=== PATIENT | female | born 2000 | race Caucasian/White ===

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

== ENCOUNTER 2024-07-19 06:02 | Emergency (ER) | payer MEDICAID, SELFPAY ==
[2024-07-19 06:03] VITALS: BP 109/74; PULSE 115; RESP 18; TEMP 37.2; O2SAT 97; BMI 19.5
[2024-07-19 06:14] VITALS: PULSE 102; O2SAT 96
[2024-07-19 06:15] VITALS: PULSE 103; O2SAT 98
[2024-07-19] MEDS: KETOROLAC 30MG/ML VIAL 30 MG IV (06:21)
[2024-07-19] MEDS: PROCHLORPERAZINE 10MG/2ML VIAL 10 MG IV (06:21)
[2024-07-19] MEDS: LACTATED RINGERS 1000ML 1,000 ML 999 ML IV (06:21)
[2024-07-19] MEDS: MAGNESIUM SULFATE IN WATER 2 GM/50 ML PIGGYBACK IV (06:21)
--- NOTE | 2024-07-19 06:23 | HMH.EDGENADL ---
Discharge Plan Disposition Patient Disposition: Home, Self-Care Referrals Follow up/Referrals: Provider,Referral, MD [Primary Care Provider] - See instructions Activity Restrictions/Add. Instructions Additional Instructions/Restrictions: Please follow-up with your primary care provider. Please return to the emergency department if you develop any new or worsening symptoms or become concerned for your health. Clinical Impressions Clinical Impression: Migraine, Influenza A Print Language Print Language: Japanese Discharge ED Provider: Femi Duncan General Adult HPI General Chief complaint: Headache Stated complaint: headache Time Seen by Provider: 07/19/24 06:05 Mode of Arrival: Ambulatory Source of Information: Patient Limitations: No Limitations Description of Symptoms (Recalled from ER Triage Doc. by RN): Patient has had a migraine since 1 am- she woke up with it. States light worsens it, and a cold rag on the head helps it. States she has a history of migraines. 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 History of Present Illness HPI narrative: 23-year-old female with history of migraines presents with migraine. She reports it is left-sided in nature. She used to get migraines as a child but has not gotten them in several years. She took Tylenol without improvement. She also reports some recent flulike symptoms. Patient denies and does not want to wait for test to administer medications. Related Data Allergies Allergy/AdvReac Type Severity Reaction Status Date / Time Penicillins Allergy Mild Rash Verified 07/19/24 06:12 [facility] Disclaimer: The information contained in this section may have been updated after the patient was seen, as this information can be updated by other users. Social History Smoking Status: Current every day smoker alcohol intake: never current occupational status: other Travel in the last 8 weeks: None ROS Obtained: Yes All systems reviewed & no additional complaints except as documented Physical Exam General General appearance: alert and in no apparent distress Head Head exam: atraumatic and normocephalic Eye Eye exam: Present normal appearance, PERRL and EOMI ENT ENT exam: Present normal oropharynx and normal external ear exam Neck Neck exam: Present normal inspection and full ROM Chest Chest inspection: Present normal inspection and symmetric chest wall rise; Absent tenderness Respiratory Respiratory exam: Present normal lung sounds bilaterally; Absent respiratory distress Cardiovascular Cardiovascular exam: Present regular rate and normal rhythm Abdominal Exam Abdominal exam: Present soft; Absent distention, tenderness or guarding Extremities Exam Extremities exam: Present normal inspection; Absent edema or joint swelling Back Exam Back exam: Present normal inspection; Absent tenderness Neurological Exam Neurological exam: Present alert and oriented X3; Absent motor sensory deficit Psychiatric Psychiatric exam: Present normal affect and normal mood Skin Skin exam: Present warm, dry and normal color Lymphatic Lymphatic Findings: no adenopathy Medical Decision Making Medical Records Medical records reviewed: Yes I reviewed the patient's medical records. Screening: Per USPSTF and CDC recommendations, given the prevalence of disease in our region, it is our hospital?s policy to screen for HIV and viral Hepatitis for all patients aged 18 and over and those with ongoing risk factors. Stefan Inquiry Pt receiving controlled substance: No Stefan was queried for this patient: No Vital Signs: 07/19/24 06:03 07/19/24 06:14 07/19/24 06:15 Temperature 98.9 F Temperature Source Temporal Artery Scan Pulse Rate 102 H 103 H Pulse Rate [Right Radial] 115 H Respiratory Rate 18 Blood Pressure [Right Arm] 109/74 L Blood Pressure Mean [Right Arm] 85 Blood Pressure Source [Right Arm] Automatic Cuff Blood Pressure Position [Right Arm] Supine 02 Sat by Pulse Oximetry 97 96 98 Oxygen Delivery Method Room Air Lab Data Lab results reviewed: Yes I reviewed the patient's lab results. Lab Results 07/19/24 06:22: SARS-CoV-2 (PCR) Not detected, Influenza A Untype (PCR) Detected A, Influenza Type B (PCR) Not detected Orders (Tests/Meds): ED MEDICATIONS Discontinued Medications Generic Name Dose Route Start Last Admin Trade Name Freq PRN Reason Stop Dose Admin Diphenhydramine HCl 25 mg 07/19/24 06:37 07/19/24 06:41 Diphenhydramine 50mg/Ml Vial IV 07/19/24 06:38 25 mg ONCE ONE Administration Magnesium Sulfate 2 gm in 50 mls @ 150 mls/hr 07/19/24 06:10 07/19/24 06:21 Magnesium Sulfate 2gm/50ml Premix IV 07/19/24 06:29 150 mls/hr ONCE ONE Administration Lactated Ringer's 1,000 mls @ 999 mls/hr 07/19/24 06:15 07/19/24 06:21 Lactated Ringer's 1000 Ml Bag IV 07/19/24 07:15 999 mls/hr .Q1H1M VIVEK Administration Ketorolac Tromethamine 30 mg 07/19/24 06:10 07/19/24 06:21 Ketorolac 30mg/Ml Vial IV 07/19/24 06:11 30 mg ONCE ONE Administration Prochlorperazine Edisylate 10 mg 07/19/24 06:10 07/19/24 06:21 Prochlorperazine 10mg/2ml Vial IV 07/19/24 06:11 10 mg ONCE ONE Administration ORDERS Category Date Time Status Rapid PCR Covid and Flu A/B Stat Lab 07/19/24 06:22 Completed Medical Decision Narrative: 23-year-old female with history of migraines presents with left-sided migraine.. History was obtained via interactive discussion with patient. On arrival, patient is [afebrile, hemodynamically stable, satting appropriately, alert, oriented x4, GCS 15], moving all extremities spontaneously. Full physical exam performed and significant for no significant physical exam abnormalities Differential includes but is not limited to migraine headache, tension headache, influenza. Patient was given migraine cocktail with Toradol Compazine magnesium and IV fluid for symptomatic management and correction of underlying abnormalities. Workup initiated including COVID flu swab. Patient was placed in ED observation status to assess the efficacy of IV medications and determine need for further workup or admission. On reassessment patient reports marked symptomatic improvement. She did have a reaction to the Compazine but it improved after Benadryl. Patient is flu positive. She is discharged in stable condition with return precautions. Procedures Risk/Benefits of Procedure(s) Were Explained: Yes Critical Care Critical Care Time Critical Care Time: No
[2024-07-19 06:31] LABS: Coronavirus 19, PCR Not Detected (NotDetected); Influenza B, PCR Not Detected (NotDetected)
[2024-07-19] MEDS: diphenhydrAMINE 50MG/ML VIAL 25 MG IV (06:41)
[2024-07-19 07:01] LABS: Influenza A, PCR Detected (NotDetected)
[2024-07-19 07:22] VITALS: BP 100/63; PULSE 82; RESP 15; TEMP 37.1; O2SAT 99
== END 2024-07-19 07:25 | disposition home or self-care (01) ==
PROVIDERS: Emergency Provider Emergency Medicine
DX: G43.909 Migraine, unspecified, not intractable, without status migrainosus (principal); J10.1 Influenza due to other identified influenza virus with other respiratory manifestations; H53.149 Visual discomfort, unspecified
CPT/HCPCS: 87636; 96361; 96365; 96374; 96375; 99284; J0780; J1200; J1885; J3475; J7120

== ENCOUNTER 2024-12-11 12:06 | Emergency (ER) | payer SELFPAY ==
[2024-12-11 12:13] VITALS: BP 108/73; PULSE 82; RESP 16; TEMP 36.8; O2SAT 98; BMI 19.5
--- OUTSIDE RECORDS SUMMARY | 2024-12-11 12:14 | XMS_ITS | Encounter Summary ---
Author Organization [facility] [employer] ([place], [place], [place], [place]) Address [address] [place] [address] Care Team Providers Care Treating Inspector Name Role Phone Maycol Suzan BARBOZA Primary Care Provider Encounter Details Date Type Department Care Team (Late st Contact Info) Description 05/06/2021 Transcribed Document [facility] [place] [facility] [place] [address] [place] [address] ProviderIsaías MD [address] [place] [address] Social History Tobacco Use Types Packs/Day Years Used Date Smoking Tobacco: Never Assessed Comments Unknown Sex and Gender Information Value Date Recorded Sex Assigned at Female 11/21/2021 6:51 PM CDT Legal Sex Female 6:51 PM CDT Gender Identity Female 11/21/2021 6:51 PM CDT Sexual Orientation Not on file documented as of this encounter Miscellaneous Notes * Cerner Conversion Note - Isaías ProviderMD - 05/06/2021 4:42 PM OPERATOR AUTOMATED PROCESS ED Triage Entered On: 05/06/2021 17:50 EST Performed On: 05/06/2021 17:47 EST by Esha Burns, CARE PARTNER Triage Across the Room Chief Complaint : Abdominal pain since yesterday. States is 8 wks gestation, primigravida. Went to [facility] yesterday and told to come to this ED if pain returned. Denies vaginal bleeding or vomiting. Taking abx for UTI per OB x4 days. Esha Burns RN - 05/06/2021 17:51 EST Triage Date/Time : 05/06/2021 17:47 EST Esha Burns RN - 05/06/2021 17:47 EST DCP GENERIC CODE Tracking Group : [facility] Tracking Acuity : 3 - Urgent Esha Burns RN - 05/06/2021 17:47 EST Mode of Arrival : Ambulatory Transported to ED by : Walk in To Room Via : Ambulate Accompanied By : Mother ED Vital Signs : Document Height & Weight : Document ED Allergies : Document ED Reason for Visit : Document ED Triage Treatments : Document Esha Burns RN - 05/06/2021 17:47 EST Infectious Disease History Does patient have symptoms of COVID-19? : No Has the Patient Been Tested for COVID-19 in the last 14 days? : No, Patient stated Does the Patient state known exposure to a COVID-19 positive case in the last 14 days? : No Patient Vaccinated for COVID-19 : Not vaccinated Does Patient want a COVID-19 Vaccine? : Unable to obtain or unsure Esha Burns RN - 05/06/2021 17:47 EST Infectious Disease Risk Screening Grid Cough < 2 wks of unknown origin : NO Cough > 2 weeks : NO Blood in Sputum : NO Fever or self-reported Fever : NO Rash of unknown origin : NO Headache : NO Stiff neck : NO Night Sweats : NO Unexplained Weight Loss : NO Diarrhea (3 episode per day) : NO Esha Burns RN - 05/06/2021 17:47 EST Physical contact outside [place] in the last 30 days : No Hospitalized in Foreign Country : No Infectious Disease History : None INF Disease TB Screening Calc : 0 INF Disease Recent Travel Calc : 0 Esha Burns RN - 05/06/2021 17:47 EST Vital Signs ED Temperature Source : Temporal artery scanning Temperature Mode : Fahrenheit Temperature, Fahrenheit : 97.2 Deg F Clinical Temperature, C : 36.2 Deg C Oxygen Therapy Mode : Room air Peripheral Pulse Rate : 81 bpm Respiratory Rate : 20 Breaths/Min Systolic Blood Pressure : 107 mmHg Diastolic Blood Pressure : 54 mmHg (LOW) Oxygen Saturation : 100 % Esha Burns RN - 05/06/2021 17:47 EST Allergy (As Of: 05/06/2021 17:50:27 EST) Allergies (Active) penicillin Estimated Onset Date: Unspecified ; Created By: Tamera Birmingham RN; Reaction Status: Active ; Category: Drug ; Substance: penicillin ; Type: Allergy ; Updated By: Tamera Birmingham RN; Reviewed Date: 05/06/2021 17:49 EST Diagnosis Control ED (As Of: 05/06/2021 17:50:27 EST) Problems(Active) No Chronic Problems (Cerner :NKP ) Name of Problem: No Chronic Problems ; Recorder: Esha Burns RN; Code: NKP ; Last Updated: 05/06/2021 17:50 EST ; Life Cycle Date: 05/06/2021 ; Life Cycle Status: Active ; Vocabulary: Cerner Diagnoses(Active) Abdominal pain - Date: 05/06/2021 ; Diagnosis Type: Reason For Visit ; Confirmation: Complaint of ; Clinical Dx: Abdominal pain - ; Classification: Medical ; Clinical Service: Emergency medicine ; Code: PNED ; Probability: 0 ; Diagnosis Code: [id number] ED Height and Weight Height Source : Stated Height Entry Format : Gilbert Height, Feet : 5 ft(Converted to: 152 cm, 60 Inch) Height, Inches : 3 Inch(Converted to: 0 ft 3 Inch, 7.62 cm) Clinical Height : 160.02 cm Weight Source, ED : Standing scale Weight Entry Format : Gilbert Weight, Pounds : 102 lb Clinical Dosing Weight : 46.36 kg Body Surface Area (BSA) : 1.45 m2 Body Mass Index : 18.1 kg/m2 (LOW) Raymond Body Weight (IBW) : 52.02 kg Esha Burns RN - 05/06/2021 17:47 EST Triage Initial Exam and Interventions, ED Level of Consciousness : Alert, Awake Affect/Behavior : Calm, Cooperative Orientation : Oriented x 4 Skin Temperature : Warm Skin Description : Normal for ethnicity Esha Burns RN - 05/06/2021 17:47 EST documented in this encounter Plan of Treatment Not on file documented as of this encounter Visit Diagnoses Not on filedocumented in this encounter Care Teams Treating Inspector Relationship Specialty Start Date End Date Maycol, JABARI Mares PCP - General Obstetrics 05/25/23 documented as of this encounter
--- OUTSIDE RECORDS SUMMARY | 2024-12-11 12:14 | XMS_ITS | Encounter Summary ---
Author Organization [employer] ([place], [place], [place], [place]) Address [address] [place] [address] Care Team Providers Care Middleware Solutions Architect Name Role Phone Suzan Severino CNM Primary Care Provider Encounter Details Date Type Department Care Team (Late st Contact Info) Description 05/06/2021 Transcribed Document [facility] [address] [place] [address] John Berumen MD [address] [place] [address] Dept[place] [address] Social History Tobacco Use Types Packs/Day Years Used Date Smoking Tobacco: Never Assessed Comments Unknown Sex and Gender Information Value Date Recorded Sex Assigned at Female 11/21/2021 6:51 PM CDT Legal Sex Female 6:51 PM CDT Gender Identity Female 11/21/2021 6:51 PM CDT Sexual Orientation Not on file documented as of this encounter Miscellaneous Notes * Cerner Conversion Note - John Berumen MD - 05/06/2021 10:47 PM EST Electronically signed by [facility] Conversion Projector Operator Cerner at 09/11/2022 12:34 PM CDT documented in this encounter Plan of Treatment Not on file documented as of this encounter Visit Diagnoses Not on filedocumented in this encounter Care Teams Middleware Solutions Architect Relationship Specialty Start Date End Date Suzan Severino CNM PCP - General Obstetrics 05/25/23 documented as of this encounter
--- OUTSIDE RECORDS SUMMARY | 2024-12-11 12:14 | XMS_ITS | Encounter Summary ---
Author Organization [employer] ([place], [place], [place], [place]) Address [address] [place] [address] Care Team Providers Care Stone Product Fabricator Name Role Phone Suzan Severino CNM Primary Care Provider [phone] Encounter Details Date Type Department Care Team (Late st Contact Info) Description 08/24/2021 Transcribed Document [facility] [place] [facility] [address] [place] [address] ProviderIsaías MD [address] [place] [address] Social History Tobacco Use Types Packs/Day Years Used Date Smoking Tobacco: Never Assessed PRAPARE - Transportation Answer Date Re corded In the past 12 months, has l ack of transportation kept you from medical appointments or from getting medications? No 06/26/2023 Lack of Transportation (Non-Medical) Not on file 06/26/2023 Utilities Answer Date Recorded In the past 12 months, has t he electric, gas, oil, or water company threatened to shut off services in your home? No 07/24/2023 Food Insecurity Answer Date Recorded Within the past 12 months, y ou worried that your food would run out before you got money to buy more. Never true 07/24/2023 Within the past 12 months, t he food you bought just didn't last and you didn't have money to get more. Never true 07/24/2023 Transportation Needs Answer Date Record ed In the past 12 months, has l ack of reliable transportation kept you from medical appointments, meetings, work or from getting things needed for daily living? No 07/24/2023 Financial Resource Strain Answer Date R ecorded How hard is it for you to pa y for the very basics like food, housing, medical care, and heating? Would you say it is: Not hard at all 07/24/2023 Employment Answer Date Recorded Do you want help finding or keeping work or a job? I do not need or want help 07/24/2023 Family and Community Support Answer Juan e Recorded If for any reason you need h elp with day-to-day activities such as bathing, preparing meals, shopping, managing finances, etc., do you get the help you need? I don't need any help 07/24/2023 Feeling Lonely or Isolated 0 07/24 Educational Attainment Answer Date Orlando rded Do you speak a language other than [place] at [facility]? No 07/24/2023 Do you want help with school or training? For example, starting or completing job training or getting a high school diploma, GED or equivalent. No 07/24/2023 Physical Activity Answer Date Recorded Number of minutes of exercise per week 250 07/24/2023 Substance Use Answer Date Recorded How many times in the past y ear have you used prescription drugs for non-medical reasons? Never 07/24/2023 How many times in the past year have you used [place] legal drugs? Never 07/24/2023 Comments Unknown Sex and Gender Information Value Date Recorded Sex Assigned at Female 11/21/2021 6:51 PM CDT Legal Sex Female 6:51 PM CDT Gender Identity Female 11/21/2021 6:51 PM CDT Sexual Orientation Not on file documented as of this encounter Miscellaneous Notes * Cerner Conversion Note - Historical Provider, - 08/24/2021 1:12 PM CDT Stroke/Warfarin Instructions Entered On: 08/24/2021 13:12 EDT Performed On: 08/24/2021 13:12 EDT by JEFERSON GOLDSMITH, RN Stroke/Warfarin Instructions Stroke/TIA Discharge Ins : N/A Warfarin Discharge Ins : N/A JEFERSON GOLDSMITH RN - 08/24/2021 13:12 EDT Electronically signed by [facility] Conversion Filtrose Crusher Kristenner at 09/11/2022 12:23 PM CDT documented in this encounter Plan of Treatment Not on file documented as of this encounter Visit Diagnoses Not on filedocumented in this encounter Care Teams Stone Product Fabricator Relationship Specialty Start Date End Date Severino, JABARI Mares PCP - General Obstetrics 05/25/23 documented as of this encounter
--- OUTSIDE RECORDS SUMMARY | 2024-12-11 12:14 | XMS_ITS | Encounter Summary ---
Author Organization [employer] ([place], [place], [place], [place]) Address [address] [place] [address] Care Team Providers Care City Surveyor Name Role Phone Suzan Severino CNM Primary Care Provider [phone]- [phone] Encounter Details Date Type Department Care Team (Late st Contact Info) Description 12/17/2021 Transcribed Document [facility] [place] [address] [place] [address] ProviderIsaías MD [address] [place] [address] Social History Tobacco Use Types [...] Do you speak a language other than [place] at [facility]? No 07/24/2023 Do you want help with [...] Cerner Conversion Note - Historical Provider, - 12/17/2021 3:25 PM CDT Patient: KANDACE GONZALEZ Age: 21 Years Sex: Female : 2000 Admit Date 12/17/2021 13:43 PREOPERATIVE DIAGNOSIS(ES): 21 yo G1 at 40 0/7, bradycardia POSTOPERATIVE DIAGNOSIS(ES): Same PROCEDURE: Stat Section SURGEON: Dr. Rina Yu Assist: Dr. Wilfredo Da Silva ANESTHESIA: General COMPLICATIONS: None apparent. ESTIMATED BLOOD LOSS: 500cc INTRAVENOUS FLUIDS: 1500 mL crystalloid. URINE OUTPUT: 50 cc, clears at the completion of the procedure. SPECIMENS: None INDICATIONS: bradycardia Findings: Female at 1431 with apgars of 9, 9 and weight of 3149g; unremarkable anatomy and placenta DESCRIPTION OF PROCEDURE: The patient was taken to the operating room. She was prepped and draped in the dorsal supine position. After initiating general anesthesia, Pfannenstiel skin incision was made and carried down to the underlying layer of the fascia, which was incised midline. Fascial incisions were extended superiorly and laterally. Rectus muscles were divided bluntly. Peritoneum was identified and entered. Peritoneal incisions were extended with good bladder visualization. The lower uterine segment was incised in a transverse fashion and hysterotomy was extended superiorly and laterally. The was delivered cephalic presentation atraumatically. Upon delivery, cord was clamped twice and cut. Infant was bulb suctioned and handed to the awaiting NICU/ team. Cord blood and gas were obtained and sent to the lab for analysis. The placenta was delivered and noted to be intact with a three-vessel cord and was disposed off. Hysterotomy was closed in the usual running, locked fashion with #1-0 chromic. Excellent hemostasis was then noted post closure. Pelvis was copiously irrigated. Surgicel was added for additional hemostatic purpose. Peritoneum was reapproximated with #2-0 chromic. Fascia was closed with #0 Vicryl. Subcu was closed with #3-0 Vicryl. Skin was closed with #3-0 Monocryl. Steri-Strips and dressing were applied post procedure. The patient did go to recovery in stable condition. The went to the nursery in stable condition. Antibiotics were given on-call to the operating room suite. X-ray negative post op. documented in this encounter Plan of Treatment Not on file documented as of this encounter Visit Diagnoses Not on filedocumented in this encounter Care Teams City Surveyor Relationship Specialty Start Date End Date Maycol JABARI Mares PCP - General Obstetrics 05/25/23 documented as of this encounter
--- OUTSIDE RECORDS SUMMARY | 2024-12-11 12:14 | XMS_ITS | Clinical Summary ---
Author Organization [facility] Address [address] [place] [address] Phone Care Team Providers Care Seamless Tube Roller Name Role Phone Unavailable Primary Care Provider Unavailabl e Allergies Active Allergy Reactions Criticality Noted Date Comments Penicillin Hives 01/28/2023 Medications No known medications Social History Tobacco Use Types Packs/Day Years Used Date Smoking Tobacco: Never Smokeless Tobacco: Never Tobacco Cessation:Counseling Given: Not Answered Comments Unknown Sex and Gender Information Value Date Recorded Sex Assigned at Not on file Legal Sex Female 5:57 PM EDT Gender Identity Not on file Sexual Orientation Not on file Obstetrics History Last Filed Vital Signs Vital Sign Reading Time Taken Comments Blood Pressure 108/72 01/28/2023 6:00 PM EDT Pulse 104 01/28/2023 5:58 PM EDT Temperature 37.1 C (98.7 F) 01/28/2023 6:00 PM EDT Respiratory Rate 18 01/28/2023 5:58 PM EDT Oxygen Saturation 97% 01/28/2023 5:58 PM EDT Inhaled Oxygen Concentration - - Weight 48.7 kg (107 lb 4.8 oz) 01/28/2023 6:00 P M EDT Height - - Body Mass Index - - Plan of Treatment Health Maintenance Due Date Last Done Comments Annual Wellness Exam 2005 HPV (1 - 3-dose series) 2017 Meningococcal B Vaccine (1 o f 2 - Standard) 2018 DTaP/TDaP/Td (1 - Tdap) 2021 Hepatitis B Vaccine (1 of 3 - 19+ 3-dose series) 2021 Cervical Cancer Screening 08/20/2023 Pap Smear 08/20/2023 COVID-19 Vaccine ( - 2023-2 5 season) 2024 Influenza Vaccine (#1) 2025 Pneumococcal Vaccine 0-49 Aged Out No longer eligible based on patient's age to complete this topic
--- OUTSIDE RECORDS SUMMARY | 2024-12-11 12:14 | XMS_ITS | Encounter Summary ---
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 ED Assessment Entered On: 05/06/2021 20:34 EST Performed On: 05/06/2021 20:31 EST by Audrey Perrin RN-PATIENT CARE BEDSIDE NON-EXEMPT ED Quick Look Assessment Level of Consciousness : Alert, Awake Affect/Behavior : Appropriate, Calm, Cooperative Orientation : Oriented x 4 Skin Temperature : Warm Skin Description : Dry Audrey Perrin RN-PATIENT CARE BEDSIDE NON-EXEMPT - 05/06/2021 20:31 EST ED General-Functional Assess Communication Barrier : None Primary Language : Cymro Any Spiritual/Cultural Needs or Requests : No Currently in Unsafe Situation : No Audrey Perrin RN-PATIENT CARE BEDSIDE NON-EXEMPT - 05/06/2021 20:31 EST Social Habits Smoking Status : Never (less than 100 in lifetime; none in last 30 days) Smokeless Tobacco Status : Never Desires Tobacco Cessation Calc : 0 Audrey Perrin RN-PATIENT CARE BEDSIDE NON-EXEMPT - 05/06/2021 20:31 EST Social History (As Of: 05/06/2021 20:34:01 EST) Tobacco: Never (less than 100 in lifetime) Smoking Status. (Last Updated: 05/06/2021 17:50:36 EST by Esha Burns RN) Cardiovascular ASMT, ED Cardiovascular Assessment WDL : Audrey Helms RN-PATIENT CARE BEDSIDE NON-EXEMPT - 05/06/2021 20:31 EST Respiratory Respiratory Assessment WDL : Audrey Helms RN-PATIENT CARE BEDSIDE NON-EXEMPT - 05/06/2021 20:31 EST Gastrointestinal ED Gastrointestinal Assessment WDL : WDL with exceptions Gastrointestinal Symptoms : Abdominal pain, Cramping Abdominal Mass Location : RLQ Abdomen Palpation : Tender Audrey Perrin RN-PATIENT CARE BEDSIDE NON-EXEMPT - 05/06/2021 20:31 EST Genitourinary Assessment, ED Genitourinary Assessment WDL : WDAnastasia with exceptions Genitourinary Symptoms : Dribbling, Frequency in urination Audrey Perrin RN-PATIENT CARE BEDSIDE NON-EXEMPT - 05/06/2021 20:31 EST Musculoskeletal Musculoskeletal Assessment WDL : Audrey Helms RN-PATIENT CARE BEDSIDE NON-EXEMPT - 05/06/2021 20:31 EST Integumentary Assessment Skin Description : Normal for ethnicity Skin Temperature : Warm Integumentary Assessment WDL : Audrey Helms RN-PATIENT CARE BEDSIDE NON-EXEMPT - 05/06/2021 20:31 EST Neurologic ASMT, ED Neurologic Assessment WDL : Audrey Helms RN-PATIENT CARE BEDSIDE NON-EXEMPT - 05/06/2021 20:31 EST Electronically signed by Alec, [facility] Conversion Fence Installer Helper Cerner at 09/11/2022 12:29 PM CDT documented in this encounter Plan of Treatment Not on file documented as of this encounter Visit Diagnoses Not on filedocumented in this encounter Care Teams Radar Systems Engineer Relationship Specialty Start Date End Date Maycol, JABARI Mares PCP - General Obstetrics 05/25/23 documented as of this encounter
--- OUTSIDE RECORDS SUMMARY | 2024-12-11 12:14 | XMS_ITS | Encounter Summary ---
Author Organization [employer] ([place], [place], [place], [place]) Address [address] [place] [address] Care Team Providers Care Aviation Project Engineer Name Role Phone Suzan Severino CNM Primary Care Provider [phone] Encounter Details Date Type Department Care Team (Late st Contact Info) Description 12/17/2021 Transcribed Document [facility] [place] Family Medicine [address] [place] [address] ProviderIsaías MD [address] [place] [address] Social History Tobacco Use Types [...] Do you speak a language other than Surinamese at [facility]? No 07/24/2023 Do you want help with [...] Conversion Note - Historical Provider, - 12/17/2021 2:15 PM CDT Admission Data, OB Entered On: 12/17/2021 14:17 EDT Performed On: 12/17/2021 14:15 EDT by Sandra Milligan RN Advance Directive Patient has Advance Directive *Q : No, patient refuses Advance Directive information Sandra Milligan RN - 12/17/2021 14:15 EDT Height and Weight Height Source : Stated Height Entry Format : [place] Height, Feet : 5 ft(Converted to: 152 cm, 60 Inch) Clinical Height : 157.48 cm Height, Inches : 2 Inch(Converted to: 0 ft 2 Inch, 5.08 cm) Weight Source : Standing scale Weight Entry Format : [place] Weight, Pounds : 128 lb Clinical Dosing Weight : 58.18 kg Body Surface Area (BSA) : 1.58 m2 Body Mass Index : 23.5 kg/m2 [place] Body Weight (IBW) : 49.73 kg Sandra Milligan RN - 12/17/2021 14:15 EDT Health Histories Smoking Status : Never (less than 100 in lifetime; none in last 30 days) Smokeless Tobacco Status : Never Sandra Milligan RN - 12/17/2021 14:15 EDT Social History (As Of: 12/17/2021 14:17:57 EDT) Tobacco: Never (less than 100 in lifetime) Smoking Status. (Last Updated: 05/06/2021 17:50:36 EST by Esha Burns RN) Anemia Management Care Prior to 32 wks? : Prior to 32 wks Sandra Milligan RN - 12/17/2021 14:15 EDT Gestational Age Gestational Age Person Gestational Age At : 40 weeks Method : Comment : Tetanus Immunization Status Previous Tetanus Immunizations : No qualifying data available. Sandra Milligan RN - 12/17/2021 14:15 EDT Influenza Vaccine Asmt, Adult Previous Vaccines from Immunization Schedule : No qualifying data available. Influenza Immunization, Current Season : Outside of influenza season Sandra Milligan RN - 12/17/2021 14:15 EDT Pneumococcal Vaccine Previous Vaccines from Immunization Schedule : No qualifying data available. Pneumonia Immunization Received : No Pneumococcal Risk Assessment < Age 65 : None Sandra Milligan RN - 12/17/2021 14:15 EDT Order Details Transport Mode Order Detail : Ambulatory Isolation Precautions Order Detail : Standard Precautions Order Detail : 1 IV Order Detail : 1 Oxygen Order Detail : 0 Nurse Collect Order Detail : 1 Lift/Transfer : Independent Central Line Order Detail : No Room Service : Appropriate Arterial Line : No Patient Needs Meds Crushed/Liquid : No Sandra Milligan RN - 12/17/2021 14:15 EDT Vital Measurements Temperature Source : Oral Temperature Mode : Fahrenheit Temperature, Fahrenheit : 97.8 Deg F Clinical Temperature, C : 36.6 Deg C Pulse Method : Non-Invasive BP Device Pulse Source : Brachial, Right Peripheral Pulse Rate : 95 bpm Pulse Rhythm : Regular Respiratory Rate : 20 Breaths/Min Blood Pressure Location : Arm, right upper Blood Pressure Source : Non-Invasive BP Device Blood Pressure Position : Side, Right Systolic Blood Pressure : 104 mmHg Diastolic Blood Pressure : 55 mmHg (LOW) Sandra Milligan RN - 12/17/2021 14:15 EDT Infectious Disease History Does patient have symptoms of COVID-19? : No Tested for COVID19 in the past 14 days : No, Patient stated Does the Patient state known exposure to a COVID-19 positive case in the last 14 days? : No Patient Vaccinated for COVID-19 : Not vaccinated Does Patient want a COVID-19 Vaccine? : No Sandra Milligan RN - 12/17/2021 14:15 EDT Infectious Disease Risk Screening Grid Cough < 2 wks of unknown origin : NO Cough > 2 weeks : NO Blood in Sputum : NO Fever or self-reported Fever : NO Rash of unknown origin : NO Headache : NO Stiff neck : NO Night Sweats : NO Unexplained Weight Loss : NO Diarrhea (3 episode per day) : NO Sandra Milligan RN - 12/17/2021 14:15 EDT Physical contact outside [place] in the last 30 days : No Hospitalized in Foreign Country : No Infectious Disease History : None INF Disease TB Screening Calc : 0 INF Disease Recent Travel Calc : 0 Sandra Milligan RN - 12/17/2021 14:15 EDT [place] Suicide Severity Rating Scale (C-SSRS) CSSRS Past Month Wish to be : No CSSRS Past Month Suicidal Thoughts : No CSSRS Lifetime Suicide Behavior : No Suicide Severity Rating Score : 0 Suicide Severity Rating : No Additional Care Required at this time Sandra Milligan RN - 12/17/2021 14:15 EDT documented in this encounter Plan of Treatment Not on file documented as of this encounter Visit Diagnoses Not on filedocumented in this encounter Care Teams Aviation Project Engineer Relationship Specialty Start Date End Date Maycol, JABARI Mares PCP - General Obstetrics 05/25/23 documented as of this encounter
--- OUTSIDE RECORDS SUMMARY | 2024-12-11 12:14 | XMS_ITS | Encounter Summary ---
Author Organization [employer] ([place], [place], [place], [place]) Address [address] [place] [address] Care Team Providers Care Interface Analyst Name Role Phone Suzan Severino CNM Primary Care Provider [phone] Encounter Details Date Type Department Care Team (Late st Contact Info) Description 12/17/2021 Transcribed Document [facility] [place] Family Medicine [address] [place] [address] ProviderIsaías MD [address] [place] [address] Social History Tobacco Use Types [...] Do you speak a language other than Colombian at [facility]? No 07/24/2023 Do you want help with [...] Conversion Note - Historical Provider, - 12/17/2021 6:26 PM CDT Meds to Bed Enrollment Entered On: 12/18/2021 9:24 EDT Performed On: 12/17/2021 18:26 EDT by Anisa Paul CONTINUOUS IMPROVEMENT FACILITATOR NON-EXEMPT Meds to Bed Enrollment Patient Enrollment Decision: : Yes/enroll in meds to bed program Anisa Paul CONTINUOUS IMPROVEMENT FACILITATOR NON-EXEMPT - 12/18/2021 9:24 EDT documented in this encounter Plan of Treatment Not on file documented as of this encounter Visit Diagnoses Not on filedocumented in this encounter Care Teams Interface Analyst Relationship Specialty Start Date End Date Suzan Severino CNM PCP - General Obstetrics 05/25/23 documented as of this encounter
--- OUTSIDE RECORDS SUMMARY | 2024-12-11 12:14 | XMS_ITS | Encounter Summary ---
Author Organization [employer] ([place], [place], [place], [place]) Address [address] [place] [address] Care Team Providers Care Consumer Affairs Director Name Role Phone Maycol Suzan BARBOZA Primary Care Provider Encounter Details Date Type Department Care Team (Late st Contact Info) Description 05/06/2021 Transcribed Document [facility] [place] [address] [place] [address] ProviderIsaías MD [address] [place] [address] Social History Tobacco Use Types Packs/Day Years Used Date Smoking Tobacco: Never Assessed Comments Unknown Sex and Gender Information Value Date Recorded Sex Assigned at Female 11/21/2021 6:51 PM CDT Legal Sex Female 6:51 PM CDT Gender Identity Female 11/21/2021 6:51 PM CDT Sexual Orientation Not on file documented as of this encounter Miscellaneous Notes * Cerner Conversion Note - Historical ProviderMD - 05/06/2021 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 [place] Violence Assessment Entered On: 05/06/2021 20:34 EST Performed On: 05/06/2021 20:31 EST by Audrey Perrin RN-PATIENT CARE BEDSIDE NON-EXEMPT [place] Violence Assessment [place] Violence Checklist of Symptoms : None Bro[place] Violence Symptoms Subtotal : 0 [place] Violence Symptoms Indicator : Low risk (0) Audrey Perrin RN-PATIENT CARE BEDSIDE NON-EXEMPT - 05/06/2021 20:31 EST Electronically signed by Alec [facility] Conversion Principal Clerk Typist Cerner at 09/11/2022 12:40 PM CDT documented in this encounter Plan of Treatment Not on file documented as of this encounter Visit Diagnoses Not on filedocumented in this encounter Care Teams Consumer Affairs Director Relationship Specialty Start Date End Date Suzan Severino CNM PCP - General Obstetrics 05/25/23 documented as of this encounter
--- OUTSIDE RECORDS SUMMARY | 2024-12-11 12:14 | XMS_ITS | Encounter Summary ---
Author Organization [employer] ([place], [place], [place], [place]) Address [address] [place] [address] Care Team Providers Care Assistant Counsel Name Role Phone MaycolElisabethSuzan CNM Primary Care Provider Encounter Details Date Type Department Care Team (Late st Contact Info) Description 05/06/2021 Transcribed Document [facility] [place] Family Medicine [facility] [place] [address] ProviderIsaías MD [address], [place] [address] Social History Tobacco Use Types Packs/Day Years [...] Conversion Note - Isaías ProviderMD - 05/06/2021 10:03 PM 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 IV Discontinued : Yes Nursing Documentation Completed : Yes Esha Burns RN - 05/06/2021 22:03 EST ED Discharge Discharge To : Home without planned follow-up Mode Of Departure : Ambulatory Accompanied By : Significant other Discharge Instructions Reviewed With, Opportunity For Questions Given : Patient Prescriptions Given to Patient : Electronically sent Esha Burns RN - 05/06/2021 22:03 EST Electronically signed by [facility], [facility] Conversion Commercial Escrow Assistant Cerner at 09/11/2022 12:15 PM CDT documented in this encounter Plan of Treatment Not on file documented as of this encounter Visit Diagnoses Not on filedocumented in this encounter Care Teams Assistant Counsel Relationship Specialty Start Date End Date Suzan Severino CNM PCP - General Obstetrics 05/25/23 documented as of this encounter
--- OUTSIDE RECORDS SUMMARY | 2024-12-11 12:14 | XMS_ITS | Encounter Summary ---
Author Organization [employer] ([place], [place], [place], [place]) Address [address] [place] [address] Care Team Providers Care Tool Analyst Name Role Phone Suzan Severino JABARI Primary Care Provider Encounter Details Date Type Department Care Team (Late st Contact Info) Description 05/06/2021 Transcribed Document [facility] Radiology [address] [place] [address] John Garduno MD [address] [place] [address] Dept. [place] [address] Social History Tobacco Use Types Packs/Day Years Used Date Smoking Tobacco: Never Assessed Comments Unknown Sex and Gender Information Value Date Recorded Sex Assigned at Female 11/21/2021 6:51 PM CDT Legal Sex Female 6:51 PM CDT Gender Identity Female 11/21/2021 6:51 PM CDT Sexual Orientation Not on file documented as of this encounter Miscellaneous Notes * Cerner Conversion Note - John Garduno MD - 05/06/2021 10:43 PM EST Patient: KANDACE GONZALEZ Age: 20 years Sex: Female : 2000 Associated Diagnoses: UTI in Author: JOHN GARDUNO MD-EMR Basic Information Additional information: Chief Complaint from Nursing Triage Note : Chief Complaint 05/06/2021 17:47 EST Chief Complaint Abdominal pain since yesterday. States is 8 wks gestation, primigravida. Went to [facility] yesterday and told to come to this ED if pain returned. Denies vaginal bleeding or vomiting. Taking abx for UTI per OB x4 days. (Modified) 05/05/2021 7:39 EST Chief Complaint Pt states 8 weeks c LMP 03/12. . Had stressful event at home last night, woke with lower abdominal/pelvic pain and increase in nausea this a.m. Denies spotting. [facility]. . History of Present Illness The patient presents with abdominal pain. The onset was just prior to arrival. The course/duration of symptoms is constant. The character of symptoms is crampy. The degree at onset was minimal. The degree at present is minimal. The Location of pain at present is abdominal. Radiating pain: none. The relieving factor is none. Review of Systems Gastrointestinal symptoms: Abdominal pain. Additional review of systems information: All other systems reviewed and otherwise negative. Health Status Allergies: Allergic Reactions (Selected) Severity Not Documented Penicillin- Hives and itching.. Medications: (Selected) Inpatient Medications Ordered Tylenol: 500 mg, Oral, 1-Time, PRN: Pain. Past Medical/ Family/ Social History Medical history Reviewed as documented in chart. Surgical history: No active procedure history items have been selected or recorded.. Family history: No family history items have been selected or recorded.. Social history: Social & Psychosocial Habits Tobacco 05/06/2021 Smoking Status Never (less than 100 in l , Reviewed as documented in chart. Problem list: Active Problems (1) No Chronic Problems , per nurse's notes. Physical Examination Vital Signs Vital Signs/Vital Measures 05/06/2021 17:47 EST Systolic Blood Pressure 107 mmHg Diastolic Blood Pressure 54 mmHg LOW Temperature Source Temporal artery scanning Temperature Mode Fahrenheit Temperature, Fahrenheit 97.2 Deg F Clinical Temperature, C 36.2 Deg C Peripheral Pulse Rate 81 bpm Respiratory Rate 20 Breaths/Min Oxygen Saturation 100 % Oxygen Therapy Mode Room air 05/05/2021 7:39 EST Systolic Blood Pressure 128 mmHg Diastolic Blood Pressure 60 mmHg Temperature Source Temporal artery scanning Temperature Mode Fahrenheit Temperature, Fahrenheit 97.2 Deg F Clinical Temperature, C 36.2 Deg C Peripheral Pulse Rate 79 bpm Respiratory Rate 16 Breaths/Min Oxygen Saturation 100 % Oxygen Therapy Mode Room air . Oxygen Saturation 05/06/2021 17:47 EST Oxygen Saturation 100 % 05/05/2021 7:39 EST Oxygen Saturation 100 % . General: Alert, no acute distress. Skin: Warm, dry, pink. Head: Atraumatic. Neck: Trachea midline. Eye: Normal conjunctiva. Ears, nose, mouth and throat: Oral mucosa moist. Cardiovascular: Normal peripheral perfusion. Respiratory: Respirations are non-labored. Chest wall: No tenderness. Back: Nontender, Normal range of motion. Musculoskeletal: Normal ROM. Gastrointestinal: Soft, Nontender, Non distended. Genitourinary Neurological: Alert and oriented to person, place, time, and situation. Psychiatric: Cooperative. Medical Decision Making Documents reviewed: Emergency department nurses' notes, emergency department records. test: UCG-positive. Results review: Lab results : Lab Results 05/06/2021 20:09 EST Lipase Level 97 Units/Liter 05/06/2021 18:19 EST Urine Type. U CleanCatch Urine Color Yellow Urine Appearance Turbid Urine Specific [place] 1.022 Urine pH Dipstick 6.5 Urine Leukocyte Esterase Moderate Urine Nitrite Negative Urine Protein Dipstick Negative Urine Glucose Dipstick Negative Urine Ketones Dipstick Negative Urine Urobilinogen Dipstick 1.0 EU/dL Urine Bilirubin Dipstick Negative Urine Blood Dipstick Negative Ur RBC 0-2 /HPF Ur WBC 5-10 /HPF Ur Bacteria 1+ Ur Amorph 4+ Ur Squamous Epithelial Cells 20-50 /HPF Urine Culture if Indicated See Comment 05/06/2021 17:52 EST Sodium Level 139 mmol/L Potassium Level 3.7 mmol/L Chloride Level 106 mmol/L Carbon Dioxide Level 26 mmol/L Anion Gap 11 Glucose Level 88 mg/dL Blood Urea Nitrogen 10 mg/dL Creatinine Level 0.39 mg/dL LOW eGFR >60 mL/min/1.73m2 eGFR NonAfrican >60 mL/min/1.73m2 Bun/Creatinine 25.6 HI Calcium Level 8.6 mg/dL Protein Total 6.6 Gram/dL Albumin Level 3.6 Gram/dL Globulin 3.0 Gram/dL A/G Ratio 1.2 Bilirubin Total 0.2 mg/dL Alk Phos 64 Units/Liter AST 13 Units/Liter ALT 16 Units/Liter WBC 10.3 K/uL HI RBC 4.13 Million/uL Hgb 11.8 Gram/dL Hct 34.5 % MCV 83.5 fL MCH 28.6 pg MCHC 34.2 Gram/dL Platelet Count 204 K/uL MPV 10.8 fL RDW 13.6 % Neut % 70.7 % Neut # 7.31 K/uL HI Lymph % 20.6 % Lymph # 2.13 K/uL Reagan % 7.1 % Reagan # 0.73 K/uL Eos % 0.9 % LOW Eos # 0.09 K/uL Baso % 0.3 % Baso # 0.03 K/uL Slide Review No IG# 0 x10(3)/uL IG% 0 % HCG Serum Quant 108,845.0 mIU/mL NA 05/05/2021 8:17 EST Sodium Level 138 mmol/L Potassium Level 3.6 mmol/L Chloride Level 109 mmol/L Carbon Dioxide Level 23 mmol/L Anion Gap 10 Glucose Level 78 mg/dL Blood Urea Nitrogen 6 mg/dL LOW Creatinine Level 0.40 mg/dL LOW eGFR >60 mL/min/1.73m2 eGFR NonAfrican >60 mL/min/1.73m2 Bun/Creatinine 15.0 Calcium Level 8.9 mg/dL Protein Total 6.7 Gram/dL Albumin Level 3.7 Gram/dL Globulin 3.0 Gram/dL A/G Ratio 1.2 Bilirubin Total 0.4 mg/dL Alk Phos 60 Units/Liter AST 10 Units/Liter ALT 15 Units/Liter WBC 9.3 K/uL RBC 4.22 Million/uL Hgb 12.0 g/dL Hct 35.5 % MCV 84.1 fL MCH 28.4 pg MCHC 33.8 Gram/dL Platelet Count 192 K/uL MPV 11.0 fL RDW 13.5 % Neut % 76.5 % HI Neut # 7.13 K/uL HI Lymph % 15.9 % LOW Lymph # 1.48 x10(3)/uL Reagan % 6.0 % Reagan # 0.56 K/uL Eos % 0.8 % Eos # 0.07 x10(3)/uL Baso % 0.3 % Baso # 0.03 x10(3)/uL Slide Review No IG# 0.05 x10(3)/uL IG% 0.50 % Urine Type. U CleanCatch Urine Color Yellow Urine Appearance Turbid Urine Specific [place] 1.014 Urine pH Dipstick *8.0 Urine Leukocyte Esterase Trace Urine Nitrite Negative Urine Protein Dipstick Negative Urine Glucose Dipstick Negative Urine Ketones Dipstick Negative Urine Urobilinogen Dipstick 0.2 EU/dL Urine Bilirubin Dipstick Negative Urine Blood Dipstick Negative Ur WBC 2-5 /HPF Ur Amorph 3+ Ur Squamous Epithelial Cells 2-5 /HPF Urine Culture if Indicated Not Indicated HCG Serum Quant 110,458.0 mIU/mL NA . Notes: Ultrasound shows intrauterine ,. Impression and Plan Diagnosis UTI in - Discharge, Emergency medicine, Medical Calls-Consults - SHILO MASTERS MD-OBG. Plan Condition: Stable. Disposition: Discharged Pharmacy: azithromycin (Order): 1,000 mg, Oral, 1-Time Admit/Transfer/Discharge: Discharge (Order): Start: 05/06/2021 21:46 EST, Discharge to: Home. Prescriptions: Prescription Insurance Verifier Pharmacy: Ceftin 500 mg oral tablet (Prescribe): 1 Tab, Oral, BID, for 7 Day(s), 14 Tab, 0 Refill(s). Patient was given the following educational materials: Urinary Tract Infection, Adult, [id number], Abdominal Pain During , [id number]. Follow up with: KALIN PIKE Within 2 to 3 days; SHILO MASTERS In 2 days 05/08/2021. Electronically signed by Sukhjinder Michael Conversion Residential Construction Instructor Cerner at 09/11/2022 12:16 PM CDT documented in this encounter Plan of Treatment Not on file documented as of this encounter Visit Diagnoses Not on filedocumented in this encounter Care Teams Tool Analyst Relationship Specialty Start Date End Date Maycol JABARI Mares PCP - General Obstetrics 05/25/23 documented as of this encounter
--- OUTSIDE RECORDS SUMMARY | 2024-12-11 12:14 | XMS_ITS | Encounter Summary ---
Author Organization [employer] ([place], [place], [place], [place]) Address [address] [place] [address] Care Team Providers Care Patient Safety Attendant Name Role Phone Suzan Severino CNM Primary Care Provider Encounter Details Date Type Department Care Team (Late st Contact Info) Description 05/06/2021 Transcribed Document [facility] [place] Family Medicine [address] [place] [address] ProviderIsaías MD [address] [place], [place] [address] Social History Tobacco Use Types Packs/Day Years [...] - Historical ProviderMD - 05/06/2021 4:42 PM K 9 HANDLER/ DEPUTY [place] Suicide Severity Rating Scale (C-SSRS) Entered On: 05/06/2021 20:34 EST Performed On: 05/06/2021 20:31 EST by Audrey Perrin RN-PATIENT CARE BEDSIDE NON-EXEMPT [place] Suicide Severity Rating Scale (C-SSRS) CSSRS Past Month Wish to be : No CSSRS Past Month Suicidal Thoughts : No CSSRS Lifetime Suicide Behavior : No Suicide Severity Rating Score : 0 Suicide Severity Rating : No Additional Care Required at this time Audrey Perrin RN-PATIENT CARE BEDSIDE NON-EXEMPT - 05/06/2021 20:31 EST Electronically signed by [employer], [facility] Conversion Mail Handler Sorter Cerner at 09/11/2022 12:23 PM CDT documented in this encounter Plan of Treatment Not on file documented as of this encounter Visit Diagnoses Not on filedocumented in this encounter Care Teams Patient Safety Attendant Relationship Specialty Start Date End Date Severino, JABARI Mares PCP - General Obstetrics 05/25/23 documented as of this encounter
--- OUTSIDE RECORDS SUMMARY | 2024-12-11 12:14 | XMS_ITS | Encounter Summary ---
Author Organization [employer] ([place], [place], [place], [place]) Address [address] [place] [address] Care Team Providers Care Wader Boot Top Assembler Name Role Phone Jone Lopez CNM Primary Care Provider [phone]- [phone] Encounter Details Date Type Department Care Team (Late st Contact Info) Description 08/24/2021 Transcribed Document [facility] [place] [address] [place] [address] ProviderIsaías MD [address] [place] [address] Social History Tobacco Use Types [...] Do you speak a language other than Spanish at [facility]? No 07/24/2023 Do you want help [...] Conversion Note - Historical Provider, - 08/24/2021 10:04 AM CDT Patient: KANDACE GONZALEZ Age: 21 years Sex: Female : 2000 Associated Diagnoses: Abdominal pain during Author: ADELITA FORREST PA-UNK Basic Information Time seen: Date & time 08/24/2021 10:05:00. History source: Patient, mother. Arrival mode: Private vehicle. History limitation: None. Additional information: Chief Complaint from Nursing Triage Note : Chief Complaint 08/24/2021 9:56 EDT Chief Complaint 24 weeks preg C/o lt upper abd pain OBGYN Jone Lopez with women [facility] women . History of Present Illness The patient presents with abdominal pain during and PT PRESENTS WITH CC LEFT SIDED ABD PAIN ASSOCIATED WITH ONGOING NAUSEA / VMITING OF . ONSET WAS 6 PM LAST NIGHT. SHE IS [id number] AND LMP Feb. SEH IS FOLLOWED BY JONE LOPEZ AND LAST US WAS ABOUT 2 WEEKS AGO. NO PELVIC PAIN. NO VAGINAL DC OR BLEEDING. . The onset was 15 hours ago. The course/duration of symptoms is constant and fluctuating in intensity. The location is left, upper quadrant and lower quadrant. The character of symptoms is dull. The degree at onset was minimal. The degree at present is moderate. Status : 1, Para: 0 24 weeks. The exacerbating factor is eating. The relieving factor is none. Risk factors consist of none. Prior episodes: none. Therapy today: none. Associated symptoms: nausea, vomiting and denies fever. Review of Systems Constitutional symptoms: No fever, Respiratory symptoms: No shortness of breath, Cardiovascular symptoms: No chest pain, Gastrointestinal symptoms: Abdominal pain, moderate, left upper quadrant, left lower quadrant, dull, nausea, vomiting. Genitourinary symptoms: No dysuria, no vaginal bleeding, no vaginal discharge. Hematologic/Lymphatic symptoms: Bleeding tendency negative, Additional review of systems information: All other systems reviewed and otherwise negative. Health Status Allergies: Allergic Reactions (Selected) Severity Not Documented Penicillin- Hives and itching.. Medications: (Selected) . Immunizations: Up to date. Menstrual history: Last menstrual period: Date 03/12/2021. history: 1, para 0. Past Medical/ Family/ Social History Surgical history: No active procedure history items have been selected or recorded., 3 KNEE SURGERIES AND TONSILS. Family history: Not significant. Social history: Social & Psychosocial Habits Tobacco 05/06/2021 Smoking Status Never (less than 100 in l . Problem list: Active Problems (1) No Chronic Problems . Physical Examination Vital Signs Vital Signs/Vital Measures 08/24/2021 9:56 EDT Systolic Blood Pressure 94 mmHg Diastolic Blood Pressure 57 mmHg LOW Temperature Source Temporal artery scanning Temperature Mode Fahrenheit Temperature, Fahrenheit 97.1 Deg F Clinical Temperature, C 36.2 Deg C Peripheral Pulse Rate 88 bpm Respiratory Rate 16 Breaths/Min Oxygen Saturation 100 % Oxygen Therapy Mode Room air . General: Alert, no acute distress. Skin: Warm, dry, pink, intact, no rash, normal for ethnicity. Neck: Supple. Cardiovascular: Regular rate and rhythm, Normal peripheral perfusion. Respiratory: Respirations are non-labored, Symmetrical chest wall expansion. Gastrointestinal: Soft, Non distended, ABD, Tenderness: Mild, left upper quadrant, left lower quadrant, Guarding: Negative, Rebound: Negative, Bowel sounds: Normal, Organomegaly: Negative, Trauma: Negative. Genitourinary: DEFERRED. Back: Normal range of motion. Musculoskeletal: Normal ROM. Neurological: No focal neurological deficit observed. Psychiatric: Cooperative. Medical Decision Making Differential Diagnosis: Abdominal pain, discomfort of . Impression and Plan Diagnosis Abdominal pain during - Discharge, Emergency medicine, Medical Calls-Consults - 08/24/2021 10:15:00 , spoke with christiano in ob hospitalist and he cleared to send pt to [facility] for evaluation. spoke with luis in [facility] and she will see in triage 1.. Plan Condition: Stable. Disposition: Discharged Admit/Transfer/Discharge: ED Transfer (Order): Start: 08/24/2021 10:20 EDT, For abd pain in , Unit Type: Labor and Delivery, Location Preference: L and D . Limitations: Limited activity. Counseled: Patient, Regarding diagnosis, Regarding diagnostic results, Regarding treatment plan, Regarding prescription. Addendum Teaching-Supervisory Addendum-Brief Notes: Based on the medical record the care appears appropriate.. Electronically signed by Sukhjinder Michael Conversion Senior Salesforce Developer Cerner at 09/11/2022 12:35 PM CDT documented in this encounter Plan of Treatment Not on file documented as of this encounter Visit Diagnoses Not on filedocumented in this encounter Care Teams Wader Boot Top Assembler Relationship Specialty Start Date End Date Lopez, JABARI Mares PCP - General Obstetrics 05/25/23 documented as of this encounter
--- OUTSIDE RECORDS SUMMARY | 2024-12-11 12:14 | XMS_ITS | Encounter Summary ---
Author Organization [employer] ([place], [place], [place], [place]) Address [address] [place] [address] Care Team Providers Care Instructor Kindergarten Name Role Phone Suzan Severino CNM Primary Care Provider [phone]- [phone] Encounter Details Date Type Department Care Team (Late st Contact Info) Description 11/29/2021 Transcribed Document [facility] [place] Family Medicine [address] [place] [address] ProviderIsíaas MD [address] [place] [address] Social History Tobacco Use Types [...] Do you speak a language other than [place] at [facility]? No 07/24/2023 Do you want [...] Cerner Conversion Note - Historical Provider, - 11/29/2021 1:08 AM CDT Patient Education Materials Follows:and Gynecology Third Trimester of The third trimester of is from week 28 through week 40. This is also called months 7 through 9. This trimester is when your unborn baby (fetus) is growing very fast. At the end of the ninth month, the unborn baby is about 20 inches long. It weighs about 6?10 pounds. Body changes during your third trimester Your body continues to go through many changes during this time. The changes vary and generally return to normal after the baby is born. Physical changes ??? Your weight will continue to increase. You may gain 25?35 pounds (11?16 kg) by the end of the . If you are underweight, you may gain 28?40 lb (about 13?18 kg). If you are overweight, you may gain 15?25 lb (about 7?11 kg). ??? You may start to get stretch hernadnez on your hips, belly (abdomen), and breasts. ??? Your breasts will continue to grow and may hurt. A yellow fluid (colostrum) may leak from your breasts. This is the first milk you are making for your baby. ??? You may have changes in your hair. ??? Your belly button may stick out. ??? You may have more swelling in your hands, face, or ankles. Health changes ??? You may have heartburn. ??? You may have trouble pooping (constipation). ??? You may get hemorrhoids. These are swollen veins in the butt that can itch or get painful. ??? You may have swollen veins (varicose veins) in your legs. ??? You may have more body aches in the pelvis, back, or thighs. ??? You may have more tingling or numbness in your hands, arms, and legs. The skin on your belly may also feel numb. ??? You may feel short of breath as your womb (uterus) gets bigger. Other changes ??? You may pee (urinate) more often. ??? You may have more problems sleeping. ??? You may notice the unborn baby dropping, or moving lower in your belly. ??? You may have more discharge coming from your vagina. ??? Your joints may feel loose, and you may have pain around your pelvic bone. Follow these instructions at home: Medicines ??? Take [id number] and prescription medicines only as told by your doctor. Some medicines are not safe during . ??? Take a vitamin that contains at least 600 micrograms (mcg) of folic acid. Eating and drinking ??? Eat healthy meals that include: ? Fresh fruits and vegetables. ? Whole grains. ? Good sources of protein, such as meat, eggs, or tofu. ? Low-fat dairy products. ??? Avoid raw meat and unpasteurized juice, milk, and cheese. These carry germs that can harm you and your baby. ??? Eat 4 or 5 small meals rather than 3 large meals a day. ??? You may need to take these actions to prevent or treat trouble pooping: ? Drink enough fluids to keep your pee (urine) pale yellow. ? Eat foods that are high in fiber. These include beans, whole grains, and fresh fruits and vegetables. ? Limit foods that are high in fat and sugar. These include fried or sweet foods. Activity ??? Exercise only as told by your doctor. Stop exercising if you start to have cramps in your womb. ??? Avoid heavy lifting. ??? Do not exercise if it is too hot or too humid, or if you are in a place of great height (high altitude). ??? If you choose to, you may have sex unless your doctor tells you not to. Relieving pain and discomfort ??? Take breaks often, and rest with your legs raised (elevated) if you have leg cramps or low back pain. ??? Take warm water baths (sitz baths) to soothe pain or discomfort caused by hemorrhoids. Use hemorrhoid cream if your doctor approves. ??? Wear a good support bra if your breasts are tender. ??? If you develop bulging, swollen veins in your legs: ? Wear support hose as told by your doctor. ? Raise your feet for 15 minutes, 3?4 times a day. ? Limit salt in your food. Safety ??? Talk to your doctor before traveling far distances. ??? Do not use hot tubs, steam rooms, or saunas. ??? Wear your seat belt at all times when you are in a car. ??? Talk with your doctor if someone is hurting you or yelling at you a lot. Preparing for your baby's arrival To prepare for the arrival of your baby: ??? Take classes. ??? Visit the hospital and tour the maternity area. ??? Buy a rear-facing car seat. Learn how to install it in your car. ??? Prepare the baby's room. Take out all pillows and stuffed animals from the baby's crib. General instructions ??? Avoid cat litter boxes and soil used by cats. These carry germs that can cause harm to the baby and can cause a loss of your baby by miscarriage or stillbirth. ??? Do not douche or use tampons. Do not use scented sanitary pads. ??? Do not smoke or use any products that contain nicotine or tobacco. If you need help quitting, ask your doctor. ??? Do not drink alcohol. ??? Do not use herbal medicines, illegal drugs, or medicines that were not approved by your doctor. Chemicals in these products can affect your baby. ??? Keep all follow-up visits. This is important. Where to find more information ??? [employer] [place] [employer]: americanpregnancy.org ??? [employer]stetricians [employer] Gynecologists: www.acog.org ??? Office on Women's Health: womenshealth.gov/ Contact a doctor if: ??? You have a fever. ??? You have mild cramps or pressure in your lower belly. ??? You have a nagging pain in your belly area. ??? You vomit, or you have watery poop (diarrhea). ??? You have bad-smelling fluid coming from your vagina. ??? You have pain when you pee, or your pee smells bad. ??? You have a headache that does not go away when you take medicine. ??? You have changes in how you see, or you see spots in front of your eyes. Get help right away if: ??? Your water breaks. ??? You have regular contractions that are less than 5 minutes apart. ??? You are spotting or bleeding from your vagina. ??? You have very bad belly cramps or pain. ??? You have trouble breathing. ??? You have chest pain. ??? You faint. ??? You have not felt the baby move for the amount of time told by your doctor. ??? You have new or increased pain, swelling, or redness in an arm or leg. Summary ??? The third trimester is from week 28 through week 40 (months 7 through 9). This is the time when your unborn baby is growing very fast. ??? During this time, your discomfort may increase as you gain weight and as your baby grows. ??? Get ready for your baby to arrive by taking classes, buying a rear-facing car seat, and preparing the baby's room. ??? Get help right away if you are bleeding from your vagina, you have chest pain and trouble breathing, or you have not felt the baby move for the amount of time told by your doctor. This information is not intended to replace advice given to you by your health care provider. Make sure you discuss any questions you have with your health care provider. Document Revised: 10/19/2020 Document Reviewed: 08/25/2020 [employer] Patient Education ? 2020 [employer]. documented in this encounter Plan of Treatment Not on file documented as of this encounter Visit Diagnoses Not on filedocumented in this encounter Care Teams Instructor Kindergarten Relationship Specialty Start Date End Date Maycol, JABARI Mares PCP - General Obstetrics 05/25/23 documented as of this encounter
--- OUTSIDE RECORDS SUMMARY | 2024-12-11 12:14 | XMS_ITS | Encounter Summary ---
Author Organization [employer] ([place], [place], [place], [place]) Address [address] [place] [address] Care Team Providers Care Tool Grinder Operator Name Role Phone Suzan Severino CNM Primary Care Provider [phone]- [phone] Encounter Details Date Type Department Care Team (Late st Contact Info) Description 08/24/2021 Transcribed Document [facility] [place] [address] [place] [address] ProviderIsaías MD [address] [place] [address] Social History Tobacco Use Types [...] Do you speak a language other than [place] at [facility]? No 07/24/2023 Do you want [...] Conversion Note - Historical Provider, - 08/24/2021 9:52 AM CDT ED Triage Entered On: 08/24/2021 9:58 EDT Performed On: 08/24/2021 9:56 EDT by CATHERINE CAMPUZANO RN ED Triage Across the Room Chief Complaint : 24 weeks preg C/o lt upper abd pain OBGYN Suzan Severino with [facility] women Triage Date/Time : 08/24/2021 9:56 EDT CATHERINE CAMPUZANO RN - 08/24/2021 9:56 EDT DCP GENERIC CODE Tracking Acuity : 3 - Urgent Tracking Group : [facility] [place] CATHERINE CAMPUZANO, MANN - 08/24/2021 9:56 EDT Mode of Arrival : Ambulatory Transported to ED by : Private vehicle To Room Via : Ambulate Accompanied By : Grandparent ED Vital Signs : Document Height & Weight : Document ED Allergies : Document ED Reason for Visit : Document CATHERINE CAMPUZANO RN - 08/24/2021 9:56 EDT Infectious Disease History Does patient have symptoms of COVID-19? : No Has the Patient Been Tested for COVID-19 in the last 14 days? : No, Patient stated Does the Patient state known exposure to a COVID-19 positive case in the last 14 days? : No Patient Vaccinated for COVID-19 : Not vaccinated Does Patient want a COVID-19 Vaccine? : No CATHERINE CAMPUZANO RN - 08/24/2021 9:56 EDT Infectious Disease Risk Screening Grid Cough < 2 wks of unknown origin : NO Cough > 2 weeks : NO Blood in Sputum : NO Fever or self-reported Fever : NO Rash of unknown origin : NO Headache : NO Stiff neck : NO Night Sweats : NO Unexplained Weight Loss : NO Diarrhea (3 episode per day) : NO CATHERINE CAMPUZANO, MANN - 08/24/2021 9:56 EDT Physical contact outside [place] in the last 30 days : No Hospitalized in Foreign Country : No Infectious Disease History : None INF Disease TB Screening Calc : 0 INF Disease Recent Travel Calc : 0 CATHERINE CAMPUZANO, MANN - 08/24/2021 9:56 EDT Vital Signs ED Temperature Source : Temporal artery scanning Temperature Mode : Fahrenheit Temperature, Fahrenheit : 97.1 Deg F ED Pain : Yes Clinical Temperature, C : 36.2 Deg C Oxygen Therapy Mode : Room air Peripheral Pulse Rate : 88 bpm Respiratory Rate : 16 Breaths/Min Systolic Blood Pressure : 94 mmHg Diastolic Blood Pressure : 57 mmHg (LOW) Oxygen Saturation : 100 % CATHERINE CAMPUZANO RN - 08/24/2021 9:56 EDT Allergy (As Of: 08/24/2021 09:58:55 EDT) Allergies (Active) penicillin Estimated Onset Date: Unspecified ; Reactions: Hives, Itching ; Created By: Rocio Gómez V RESIDENT-PHARMACIST; Reaction Status: Active ; Category: Drug ; Substance: penicillin ; Type: Allergy ; Updated By: Shook, Rocio V, RESIDENT-PHARMACIST; Reviewed Date: 08/24/2021 9:58 EDT Diagnosis Control ED (As Of: 08/24/2021 09:58:55 EDT) Problems(Active) No Chronic Problems (Cerner :NKP ) Name of Problem: No Chronic Problems ; Recorder: Esha Burns RN; Code: NKP ; Last Updated: 05/06/2021 17:50 EST ; Life Cycle Date: 05/06/2021 ; Life Cycle Status: Active ; Vocabulary: Cerner Diagnoses(Active) Abdominal pain - Date: 08/24/2021 ; Diagnosis Type: Reason For Visit ; Confirmation: Complaint of ; Clinical Dx: Abdominal pain - ; Classification: Medical ; Clinical Service: Emergency medicine ; Code: PNED ; Probability: 0 ; Diagnosis Code: [id number] ED Height and Weight Height Source : Estimated Height Entry Format : Daniels Height, Feet : 5 ft(Converted to: 152 cm, 60 Inch) Height, Inches : 3 Inch(Converted to: 0 ft 3 Inch, 7.62 cm) Clinical Height : 160.02 cm Weight Source, ED : Critical estimated dosing weight Weight Entry Format : Daniels Weight, Pounds : 127 lb Clinical Dosing Weight : 57.73 kg Body Surface Area (BSA) : 1.6 m2 Body Mass Index : 22.5 kg/m2 [place] Body Weight (IBW) : 52.02 kg CATHERINE CAMPUZANO RN - 08/24/2021 9:56 EDT Pain Assessment Pain Assessment : Initial assessment Pain Scale Used : 0-10 Scale CATHERINE CAMPUZANO RN - 08/24/2021 9:56 EDT Pain Scale Intensity : 3 CATHERINE CAMPUZANO RN - 08/24/2021 9:56 EDT Image 4 - Images currently included in the form version of this document have not been included in the text rendition version of the form. documented in this encounter Plan of Treatment Not on file documented as of this encounter Visit Diagnoses Not on filedocumented in this encounter Care Teams Tool Grinder Operator Relationship Specialty Start Date End Date Suzan Severino CNM PCP - General Obstetrics 05/25/23 documented as of this encounter
--- OUTSIDE RECORDS SUMMARY | 2024-12-11 12:14 | XMS_ITS | Encounter Summary ---
Author Organization [employer] ([place], [place], [place], [place]) Address [address] [place] [address] Care Team Providers Care Grinder Chipper Name Role Phone Jone Lopez CNM Primary Care Provider [phone] Encounter Details Date Type Department Care Team (Late st Contact Info) Description 08/24/2021 Transcribed Document [facility] [place] Family Medicine [address] [place] [address] ProviderIsaías MD [address] [place] [address] Social History Tobacco Use Types [...] Do you speak a language other than [place] at [facility]? No 07/24/2023 Do you want [...] Conversion Note - Historical Provider, - 08/24/2021 1:13 [place] [address] KANDACE GONZALEZ :2000 Visit Time:08/24/2021 Your Visit Summary Your Care Team Admitting Physician - KANDACE PATIÑO MD Attending Physician - KANDACE PATIÑO MD Primary Care Physician - CLAYTON, NO DR Referring Physician - PHY, SELF REFERRED Your Diagnosis Abdominal pain - Abdominal pain during Encounter for supervision of normal first , unspecified trimester, Encounter for supervision of normal first , unspecified trimester These Are Your Goals No qualifying data available. Discharge Vitals Temperature 36.7 ??C Respiratory Rate 16 Blood Pressure 89/54 What to do next Follow-Up Appointments Follow Up with JONE LOPEZ When Within 2 to 3 days Medications What How Much When Instructions Next Dose multivitamin, ( Multivitamins) Every Day Take your medications faithfully. Do NOT skip medication. Do NOT stop taking medications without the direction of a physician. Carry a list of your medications with you at all times, and take this medication list with you to your first follow up visit. Report any side effects. Avoid herbal remedies unless discussed with your physician. As part of your treatment plan, your physician may have prescribed a limited course of a controlled substance. This medication may be given to help people with moderate or severe pain or for other medical conditions, but there are risks involved with treatment. Common side effects may include nausea, constipation, drowsiness, sweating, itching, dry mouth, and rash. More serious side effects may include cognitive and motor impairment, like problems with thinking, concentrating, alertness, and movement (e.g. slowed reflexes), and driving and operating heavy machinery can be dangerous. It is important for you to talk to your physician if you have these side effects or questions. These controlled substances can produce physical dependence and be habit-forming if taken for an extended period of time, which means that the body has gotten used to them and may experience withdrawal symptoms if they are abruptly stopped. Withdrawal symptoms can include runny nose, sweating, goose bumps, diarrhea, abdominal cramping, rapid heartbeat, difficulty sleeping, and nervousness. Please dispose of unused and medications per your retail pharmacy guidance. Allergies penicillin (Itching, Hives) Immunizations This Visit No Immunizations Found Education Materials Abdominal Pain During Belly (abdominal) pain is common during . There are many possible causes. Most of the time, it is not a serious problem. Other times, it can be a sign that something is wrong with the . Always tell your doctor if you have belly pain. Follow these instructions at home: ??? Do not have sex or put anything in your vagina until your pain goes away completely. ??? Get plenty of rest until your pain gets better. ??? Drink enough fluid to keep your pee (urine) pale yellow. ??? Take lszd-exg-wzkcjkz and prescription medicines only as told by your doctor. ??? Keep all follow-up visits as told by your doctor. This is important. Contact a doctor if: ??? Your pain continues or gets worse after resting. ??? You have lower belly pain that: ? Comes and goes at regular times. ? Spreads to your back. ? Feels like menstrual cramps. ??? You have pain or burning when you pee (urinate). Get help right away if: ??? You have a fever or chills. ??? You have vaginal bleeding. ??? You are leaking fluid from your vagina. ??? You are passing tissue from your vagina. ??? You throw up (vomit) for more than 24 hours. ??? You have watery poop (diarrhea) for more than 24 hours. ??? Your baby is moving less than usual. ??? You feel very weak or faint. ??? You have shortness of breath. ??? You have very bad pain in your upper belly. Summary ??? Belly (abdominal) pain is common during . There are many possible causes. ??? If you have belly pain during , tell your doctor right away. ??? Keep all follow-up visits as told by your doctor. This is important. This information is not intended to replace advice given to you by your health care provider. Make sure you discuss any questions you have with your health care provider. Document Revised: 08/31/2019 Document Reviewed: 08/15/2017 [email or web address] Patient Education ?? 2020 [email or web address] Third Trimester of The third trimester of is from week 28 through week 40. This is also called months 7 through 9. This trimester is when your unborn baby (fetus) is growing very fast. At the end of the ninth month, the unborn baby is about 20 inches long. It weighs about 6???10 pounds. Body changes during your third trimester Your body continues to go through many changes during this time. The changes vary and generally return to normal after the baby is born. Physical changes ??? Your weight will continue to increase. You may gain 25???35 pounds (11???16 kg) by the end of the . If you are underweight, you may gain 28???40 lb (about 13???18 kg). If you are overweight, you may gain 15???25 lb (about 7???11 kg). ??? You may start to get stretch hernandez on your hips, belly (abdomen), and breasts. [...] these instructions at home: Medicines ??? Take jksj-gpr-aaxvtcp and prescription medicines only as told by [...] ? Raise your feet for 15 minutes, 3???4 times a day. ? Limit salt in [...] important. Where to find more information ??? [place] Association: americanpregnancy.org ??? [employer]etric[employer] Gynec[employer]: www.acog.org ??? [...] provider. Document Revised: 10/19/2020 Document Reviewed: 08/25/2020 [email or web address] Patient Education ?? 2020 [employer]. Emergency Awareness and Preventative Care STROKE is an EMERGENCY Every Minute Counts Act FAST and Check for these signs: FACE Does the face look uneven? ARM Does one arm drift down? SPEECH Does their speech sound strange? TIME Call at any sign of stroke Stroke Risk Factors Atrial Fibrillation (irregular heartbeat) Diabetes Family history of stroke Heart Disease Heavy alcohol use High Blood Pressure High Cholesterol Physical inactivity and obesity Smoking Cigarette Smoking The facts are clear, cigarette smoking will shorten your life. Smoking can cause many illnesses along the way. As a healthcare provider, we recommend that you stop smoking. Assistance with quitting is available by contacting 1-416-TUPV-NOW. This is a free resource providing counseling, support, and referral. Or you may contact your personal physician. National Suicide Prevention Lifeline: The National Suicide Prevention Lifeline is a national network of local crisis centers that provides free and confidential emotional support to people in suicidal crisis or emotional distress 24 hours a day, 7 days a week. Don't Wait! Stop a Heart Attack Before it Starts What is a heart attack? A heart attack is damage or to a part of the heart from severely decreased or lack of blood flow to the heart. Over time, arteries can become narrow from the buildup of fat and cholesterol, which is called plaque. The plaque can rupture causing a blood clot to form. When the blood clot forms, the artery can become severely narrowed or completely blocked, causing a heart attack. Heart attack is the leading cause of in the [place]. 85% of muscle damage occurs within the first 2 hours. Delay in the recognition of heart attack symptoms increases the chances of . Know the early symptoms of a heart attack: Nausea Feeling of fullness in chest Jaw Pain Pain that travels down one or both arms Fatigue/being tired Anxiety Back Pain Chest pressure, squeezing, or discomfort Shortness of breath Sweating, or a cold sweat Feeling of impending doom There are unusual signs of a heart attack, too! Women, the elderly, and diabetics may present with atypical symptoms: Fainting/dizziness Weakness Confusion Risk Factors for a Heart Attack Some heart disease risk factors, such as age and family history, cannot be changed. Others, like smoking and lack of exercise, can be changed. Smoking High Cholesterol High Blood Pressure Family History Obesity Age Gender (Males are at higher risk) Lack of Exercise Diabetes Diet Stress Excessive Alcohol Intake If you or someone you know is experiencing the signs and symptoms of a heart attack, DON???T DELAY. Call immediately and seek help. If someone collapses, perform CPR! Do not attempt to drive if you are having symptoms of heart attack. Hands-Only CPR Why Hands-Only CPR? Hands-Only CPR has been shown to be as effective as conventional CPR for cardiac arrests that occur outside of a hospital. Survival depends on immediately receiving CPR from someone nearby. How do you perform Hands-Only CPR? There are two easy steps: Call if you see a teen or adult collapse Push hard and fast in the center of the chest at a beat of 100 beats per minute. Save a life! 4 WAYS TO GET AHEAD OF SEPSIS SEPSIS is a MEDICAL EMERGENCY. Time matters! Infections put you and your family at risk for a life-threatening condition called sepsis. Sepsis is the body's extreme response to an infection. It is life-threatening, and without timely treatment, sepsis can rapidly lead to tissue damage, organ failure, and . Sepsis happens when an infection you already have-in your skin, lungs, urinary tract or somewhere else-triggers a chain reaction throughout your body. 1 PREVENT INFECTIONS Take good care of chronic conditions. Talk to your doctor about getting the recommended vaccines. 2 PRACTICE GOOD HYGIENE Wash your hands frequently. Keep cuts or open sores clean and covered until they are healed. 3 KNOW THE SYMPTOMS Confusion or disorientation Shortness of breath High heart rate Fever, shivering, or feeling very cold Extreme pain or discomfort Clammy or sweaty skin 4 ACT FAST Get medical care IMMEDIATELY if you suspect sepsis or if you have an infection that is not getting better or is getting worse. To learn more about sepsis and how to prevent infections, visit www.cdc.gov/sepsis. Test Results Laboratory or Other Results This Visit (last charted value for your 08/24/2021 visit) Urinalysis 08/24/2021 12:06 PM Urine Nitrite: Negative Urine Leukocyte Esterase: Negative Urine Appearance: Clear Urine Glucose Dipstick: Negative Urine Blood Dipstick: Negative Urine Urobilinogen Dipstick: 0.2 EU/dL -- Normal range between ( 0.2 and 1.0 ) Urine Protein Dipstick: Negative Urine Color: Yellow Urine Ketones Dipstick: Negative Urine pH Dipstick: *8.0 -- Normal range between ( 6.0 and 8.0 ) Urine Bilirubin Dipstick: Negative Urine Specific [place]: 1.014 -- Normal range between ( 1.005 and 1.030 ) Urine Type.: U CleanCatch Urine Culture if Indicated: Culture Ordered Toxicology 08/24/2021 12:06 PM UDS Amp: Negative UDS Lesly: Negative UDS Benzo: Negative UDS Tana: Negative UDS Meth: Negative UDS Opi: Negative UDS Oxy: Negative UDS PCP: Negative UDS TCA: Negative UDS THC: POSITIVE Buprenorphine Screen, Urine: Negative Heroin Metab (6AM) by LC-MS/MS, Urine: Negative SpGravity, Urine: 1.012 Propoxyphene, Urine: Negative UDS pH: 8.2 UDS Creatinine, Toxicology: 101.6 mg/dL Patient Name:MARIBEL GONZALEZZASABAS HICKEY I have received and understand this information and was given the opportunity to ask questions. Patient/Road Production General Manager Name: Patient/Road Production General Manager Signature: Relationship to Patient: Clinician/Hospital Road Production General Manager Signature: Date: Electronically signed by Alec, [facility] Conversion Personnel Coordinator Cerner at 09/11/2022 12:29 PM CDT documented in this encounter Plan of Treatment Not on file documented as of this encounter Visit Diagnoses Not on filedocumented in this encounter Care Teams Grinder Chipper Relationship Specialty Start Date End Date Jone Lopez CNM PCP - General Obstetrics 05/25/23 documented as of this encounter
--- OUTSIDE RECORDS SUMMARY | 2024-12-11 12:14 | XMS_ITS | Encounter Summary ---
Author Organization [employer] ([place], [place], [place], [place]) Address [address] [place] [address] Care Team Providers Care Hand Binder Stripper Name Role Phone Suzan Severino CNM Primary Care Provider [phone]- [phone] Encounter Details Date Type Department Care Team (Late st Contact Info) Description 11/28/2021 Transcribed Document [facility] [place] Family Medicine [address] [place] [address] ProviderIsaías MD [address] [place] [address] Social History Tobacco Use Types [...] Do you speak a language other than [place] at [facility]? No 07/24/2023 Do you want help with [...] Cerner Conversion Note - Historical Provider, - 11/28/2021 11:04 PM CDT Admission Data, OB Entered On: 11/28/2021 23:07 EDT Performed On: 11/28/2021 23:04 EDT by Shilpa Roberto RN Advance Directive Patient has Advance Directive *Q : No, patient refuses Advance Directive information Shilpa Roberto RN - 11/28/2021 23:04 EDT Height and Weight Height Source : Measured Height Entry Format : [place] Height, Feet : 5 ft(Converted to: 152 cm, 60 Inch) Clinical Height : 160.02 cm Height, Inches : 3 Inch(Converted to: 0 ft 3 Inch, 7.62 cm) Weight Source : Standing scale Weight Entry Format : [place] Weight, Pounds : 128 lb Clinical Dosing Weight : 58.18 kg Body Surface Area (BSA) : 1.6 m2 Body Mass Index : 22.7 kg/m2 [place] Body Weight (IBW) : 52.02 kg Shilpa Roberto RN - 11/28/2021 23:04 EDT Health Histories Smoking Status : Other: Vape Smokeless Tobacco Status : Never Shilpa Roberto RN - 11/28/2021 23:04 EDT Social History (As Of: 11/28/2021 23:07:23 EDT) Tobacco: Never (less than 100 in lifetime) Smoking Status. (Last Updated: 05/06/2021 17:50:36 EST by Esha Burns RN) Anemia Management Care Prior to 32 wks? : Prior to 32 wks Received Iron Transufsion : No Shilpa Roberto RN - 11/28/2021 23:04 EDT Gestational Age Gestational Age Person Gestational Age At : 38 weeks Method : Comment : Tetanus Immunization Status Previous Tetanus Immunizations : No qualifying data available. Tetanus Immunization : Unknown Shilpa Roberto RN - 11/28/2021 23:04 EDT Influenza Vaccine Asmt, Adult Previous Vaccines from Immunization Schedule : No qualifying data available. Influenza Immunization, Current Season : No Inactivated Flu Vaccine Contraindications : No contraindications to inactivated influenza vaccine Transplant Workup/Recent Transplant : No Order for Influenza Vaccine : Declined Vaccination Shilpa Roberto RN - 11/28/2021 23:04 EDT Pneumococcal Vaccine Previous Vaccines from Immunization Schedule : No qualifying data available. Pneumonia Immunization Received : No Pneumococcal Risk Assessment < Age 65 : None Shilpa Roberto RN - 11/28/2021 23:04 EDT Order Details Transport Mode Order Detail : Ambulatory Isolation Precautions Order Detail : Standard Precautions Order Detail : 1 IV Order Detail : 0 Oxygen Order Detail : 0 Nurse Collect Order Detail : 0 Lift/Transfer : Independent Central Line Order Detail : No Room Service : Appropriate Arterial Line : No Patient Needs Meds Crushed/Liquid : No Shilpa Roberto RN - 11/28/2021 23:04 EDT Vital Measurements Temperature Source : Oral Temperature Mode : Fahrenheit Temperature, Fahrenheit : 98.4 Deg F Clinical Temperature, C : 36.9 Deg C Pulse Method : Non-Invasive BP Device Pulse Source : Brachial, Right Peripheral Pulse Rate : 103 bpm (HI) Pulse Rhythm : Regular Respiratory Rate : 16 Breaths/Min Blood Pressure Location : Arm, right upper Blood Pressure Source : Non-Invasive BP Device Blood Pressure Position : Sitting Systolic Blood Pressure : 106 mmHg Diastolic Blood Pressure : 60 mmHg Oxygen Therapy Mode : Room air Shilpa Roberto RN - 11/28/2021 23:04 EDT Infectious Disease History Does patient have symptoms of COVID-19? : No Tested for COVID19 in the past 14 days : No, Patient stated Does the Patient state known exposure to a COVID-19 positive case in the last 14 days? : No Patient Vaccinated for COVID-19 : Not vaccinated Does Patient want a COVID-19 Vaccine? : No Shilpa Roberto RN - 11/28/2021 23:04 EDT Infectious Disease Risk Screening Grid Cough < 2 wks of unknown origin : NO Cough > 2 weeks : NO Blood in Sputum : NO Fever or self-reported Fever : NO Rash of unknown origin : NO Headache : NO Stiff neck : NO Night Sweats : NO Unexplained Weight Loss : NO Diarrhea (3 episode per day) : NO Shilpa Roberto RN - 11/28/2021 23:04 EDT Physical contact outside [place] in the last 30 days : No Hospitalized in Foreign Country : No Infectious Disease History : None INF Disease TB Screening Calc : 0 INF Disease Recent Travel Calc : 0 Shilpa Roberto RN - 11/28/2021 23:04 EDT [place] Suicide Severity Rating Scale (C-SSRS) CSSRS Past Month Wish to be : No CSSRS Past Month Suicidal Thoughts : No CSSRS Lifetime Suicide Behavior : No Suicide Severity Rating Score : 0 Suicide Severity Rating : No Additional Care Required at this time Shilpa Roberto RN - 11/28/2021 23:04 EDT documented in this encounter Plan of Treatment Not on file documented as of this encounter Visit Diagnoses Not on filedocumented in this encounter Care Teams Hand Binder Stripper Relationship Specialty Start Date End Date Suzan Severino CNM PCP - General Obstetrics 05/25/23 documented as of this encounter
--- OUTSIDE RECORDS SUMMARY | 2024-12-11 12:14 | XMS_ITS | Encounter Summary ---
Author Organization [employer] ([place], [place], [place], [place]) Address [address] [place] [address] Care Team Providers Care Suction Operator Name Role Phone Maycol Suzan BARBOZA Primary Care Provider Encounter Details Date Type Department Care Team (Late st Contact Info) Description 05/05/2021 Transcribed Document [facility] [place] [address] [place] [address] ProviderIsaías MD [address] [place] [address] Social History Tobacco Use Types Packs/Day Years Used Date Smoking Tobacco: Never Assessed Comments Unknown Sex and Gender Information Value Date Recorded Sex Assigned at Female 11/21/2021 6:51 PM CDT Legal Sex Female 6:51 PM CDT Gender Identity Female 11/21/2021 6:51 PM CDT Sexual Orientation Not on file documented as of this encounter Miscellaneous Notes * Cerner Conversion Note - Isaías Willard MD - 05/05/2021 10:17 AM EVENT MARKETING COORDINATOR [facility] [place] [address] KANDACE GONZALEZ :2000 Visit Time:05/05/2021 Your Visit Summary Your Care Team Primary Provider: YAHAIRA MCNAIR Secondary Provider: Your Diagnosis Abdominal pain - Abdominal pain in Abdominal pain in Medical Information You may obtain a copy of your Emergency Department visit from Medical Records by calling the hospital phone number listed above and asking to be directed to the Medical Records Department. If you had special tests, such as EKG???s or X-rays, the interpretation of your tests given to you by the Emergency Department Physician is a preliminary report. Some fractures and illnesses fail to show up on preliminary tests. These will be reviewed again and we will call you if there are any new suggestions. If your symptoms continue notify your physician. After you leave, you should follow the instructions provided. What to do next Follow-Up Appointments Follow Up with KALIN PIKE When Within 2 to 3 days Where: [address] [id number] [facility] (1) Allergies penicillin Immunizations This Visit No Immunizations Found Medications The home medications listed are only as accurate as the information you provided. Please continue taking all of your medications prescribed by your Primary Care Provider unless specifically told to change or discontinue the medication. Please direct any questions regarding your home medications to your Primary Care Provider. Take your medications faithfully. Do NOT skip [...] Please dispose of unused and medications per pharmacy guidance. Test Results Laboratory or Other Results This Visit (last charted value for your 05/05/2021 visit) Hematology 05/05/2021 8:17 AM WBC: 9.3 K/uL -- Normal range between ( 4.5 and 10.5 ) RBC: 4.22 Million/uL -- Normal range between ( 3.93 and 5.22 ) Hct: 35.5 % -- Normal range between ( 34.1 and 44.9 ) Hgb: 12.0 g/dL -- Normal range between ( 11.2 and 15.7 ) Platelet Count: 192 K/uL -- Normal range between ( 163 and 369 ) MCH: 28.4 pg -- Normal range between ( 25.6 and 32.2 ) MCHC: 33.8 Gram/dL -- Normal range between ( 32.2 and 36.5 ) MCV: 84.1 fL -- Normal range between ( 79.0 and 94.8 ) Slide Review: No Eos %: 0.8 % -- Normal range between ( 0.0 and 7.0 ) [place] #: 0.56 K/uL -- Normal range between ( 0.16 and 1.00 ) Eos #: 0.07 x10(3)/uL -- Normal range between ( 0.00 and 0.80 ) [place] %: 6.0 % -- Normal range between ( 3.0 and 9.0 ) Baso %: 0.3 % -- Normal range between ( 0.0 and 1.5 ) Baso #: 0.03 x10(3)/uL -- Normal range between ( 0.00 and 0.20 ) RDW: 13.5 % -- Normal range between ( 11.7 and 14.9 ) Neut %: 76.5 % -- Normal range between ( 34.0 and 71.0 ) Neut #: 7.13 K/uL -- Normal range between ( 1.56 and 6.13 ) Lymph %: 15.9 % -- Normal range between ( 19.3 and 53.1 ) Lymph #: 1.48 x10(3)/uL -- Normal range between ( 1.00 and 3.90 ) MPV: 11.0 fL -- Normal range between ( 9.4 and 12.4 ) IG#: 0.05 x10(3)/uL -- Normal range between ( 0.00 and 0.05 ) IG%: 0.50 % -- Normal range between ( 0.00 and 0.60 ) Urinalysis 05/05/2021 8:17 AM Urine Nitrite: Negative Urine Leukocyte Esterase: Trace Urine Appearance: Turbid Urine Glucose Dipstick: Negative Urine Blood Dipstick: Negative Urine Urobilinogen Dipstick: 0.2 EU/dL Urine Protein Dipstick: Negative Ur Amorph: 3+ Ur Squamous Epithelial Cells: 2-5 /HPF Urine Color: Yellow Ur WBC: 2-5 /HPF Urine Ketones Dipstick: Negative Urine pH Dipstick: *8.0 -- Normal range between ( 6.0 and 8.0 ) Urine Bilirubin Dipstick: Negative Urine Specific [place]: 1.014 -- Normal range between ( 1.005 and 1.030 ) Urine Type.: U CleanCatch Urine Culture if Indicated: Not Indicated General Chemistry 05/05/2021 8:17 AM Creatinine Level: 0.40 mg/dL -- Normal range between ( 0.55 and 1.02 ) Sodium Level: 138 mmol/L -- Normal range between ( 136 and 146 ) Potassium Level: 3.6 mmol/L -- Normal range between ( 3.5 and 5.1 ) Chloride Level: 109 mmol/L -- Normal range between ( 102 and 112 ) Carbon Dioxide Level: 23 mmol/L -- Normal range between ( 21 and 32 ) Anion Gap: 10 -- Normal range between ( 9 and 20 ) Bilirubin Total: 0.4 mg/dL -- Normal range between ( 0.2 and 1.2 ) A/G Ratio: 1.2 -- Normal range between ( 1.1 and 2.5 ) ALT: 15 Units/Liter -- Normal range between ( 13 and 56 ) AST: 10 Units/Liter -- Normal range between ( 5 and 37 ) Globulin: 3.0 Gram/dL -- Normal range between ( 1.5 and 4.5 ) Alk Phos: 60 Units/Liter -- Normal range between ( 27 and 136 ) Bun/Creatinine: 15.0 -- Normal range between ( 8.0 and 20.0 ) Calcium Level: 8.9 mg/dL -- Normal range between ( 8.4 and 10.1 ) eGFR : >60 mL/min/1.73m2 eGFR NonAfrican: >60 mL/min/1.73m2 Glucose Level: 78 mg/dL -- Normal range between ( 74 and 106 ) Blood Urea Nitrogen: 6 mg/dL -- Normal range between ( 7 and 22 ) Protein Total: 6.7 Gram/dL -- Normal range between ( 6.4 and 8.2 ) Albumin Level: 3.7 Gram/dL -- Normal range between ( 3.4 and 5.0 ) Endocrinology 05/05/2021 8:17 AM HCG Serum Quant: 699399.0 mIU/mL Education [employer] Abdominal Pain During Abdominal pain is common during , and has many possible causes. Some causes are more serious than others, and sometimes the cause is not known. Abdominal pain can be a sign that labor is starting. It can also be caused by normal growth and stretching of muscles and ligaments during . Always tell your health care provider if you have any abdominal pain. Follow these instructions at home: ??? Do not have sex or put anything in your vagina until your pain goes away completely. ??? Get plenty of rest until your pain improves. ??? Drink enough fluid to keep your urine pale yellow. ??? Take pciy-scy-tqrhdqk and prescription medicines only as told by your health care provider. ??? Keep all follow-up visits as told by your health care provider. This is important. Contact a health care provider if: ??? Your pain continues or gets worse after resting. ??? You have lower abdominal pain that: ? Comes and goes at regular intervals. ? Spreads to your back. ? Is similar to menstrual cramps. ??? You have pain or burning when you urinate. Get help right away if: ??? You have a fever or chills. ??? You have vaginal bleeding. ??? You are leaking fluid from your vagina. ??? You are passing tissue from your vagina. ??? You have vomiting or diarrhea that lasts for more than 24 hours. ??? Your baby is moving less than usual. ??? You feel very weak or faint. ??? You have shortness of breath. ??? You develop severe pain in your upper abdomen. Summary ??? Abdominal pain is common during , and has many possible causes. ??? If you experience abdominal pain during , tell your health care provider right away. ??? Follow your health care provider's home care instructions and keep all follow-up visits as directed. This information is not intended to replace advice given to you by your health care provider. Make sure you discuss any questions you have with your health care provider. Document Revised: 08/31/2019 Document Reviewed: 08/15/2017 [employer] Patient Education ?? 2020 [employer]. Emergency Awareness and Preventative Care STROKE is [...] Assistance with quitting is available by contacting 8-250-QZDU-NOW. This is a free resource providing counseling, [...] and how to prevent infections, visit www.cdc.gov/sepsis. The examination and treatment you have received in the Emergency Department has been done to provide an appropriate evaluation and stabilizing treatment on an emergency basis only. Given the limited resources, it is not meant to be a substitute for complete medical care. The follow-up doctor you named will receive a copy of your records and all test reports. IT IS IMPORTANT THAT YOU SCHEDULE A FOLLOW-UP APPOINTMENT AND ARE RE-EVALUATED. You should report any new complaints, symptoms, or remaining problems at that time. IT IS IMPOSSIBLE FOR THE EMERGENCY DEPARTMENT TO RECOGNIZE AND TREAT ALL ELEMENTS OF INJURY OR ILLNESS IN A SINGLE VISIT. If you have been referred to a specialist physician, it means that we believe you may have a condition that requires the expertise of a specialist. These physicians work in partnership with the hospital and have agreed to see referred patients in their office for further evaluation. KEEP IN MIND THAT THE SPECIALIST HAS HIS/HER OWN OFFICE POLICIES WHICH MAY REQUIRE PROPER INSURANCE OR PAYMENT UP FRONT BEFORE THE SPECIALIST WILL SEE YOU. It is your responsibility to call the specialist physician to make an appointment. We do not have the ability to refer patients to specialists/physicians that work with specific insurance companies. Please be advised that all financial charges or billing practices are determined by that practice, not the hospital. If your insurance company requires that you see a specialist from their approved list, it is your responsibility to contact your insurance company to make those arrangements. It is also your responsibility to follow any other requirements of your insurance company necessary to obtain coverage for claims submitted. We will bill your insurance; however, you are responsible today for any co-pay amounts. You will receive a separate bill for any services you may have received including: emergency, radiology, or pathology physicians. Patient Name:KANDACE GONZALEZ I have received this information and was given the opportunity to ask questions. Patient/Strategy Consultant Name: Patient/Strategy Consultant Signature: Relationship to Patient: Clinician/Hospital Strategy Consultant Signature: Please Provide a Telephone Number Where You Can Be Reached: Is it Permissible To Leave a Message? Date: Electronically signed by Alec, [facility] Conversion Cnc Maintenance Technician Cerner at 09/11/2022 12:42 PM CDT documented in this encounter Plan of Treatment Not on file documented as of this encounter Visit Diagnoses Not on filedocumented in this encounter Care Teams Suction Operator Relationship Specialty Start Date End Date Suzan Severino CNM PCP - General Obstetrics 05/25/23 documented as of this encounter
--- OUTSIDE RECORDS SUMMARY | 2024-12-11 12:14 | XMS_ITS | Encounter Summary ---
Author Organization [employer] ([place], [place], [place], [place]) Address [address] [place] [address] Care Team Providers Care Registered Nurse Step Down Name Role Phone SeverinoSuzan JABARI Primary Care Provider [phone] Encounter Details Date Type Department Care Team (Late st Contact Info) Description 05/06/2021 Transcribed Document [facility] [place] [address] [place] [address] ProviderIsaías MD [address] [place] [address] Social History Tobacco Use Types [...] Conversion Note - Isaías ProviderMD - 05/06/2021 10:04 PM CEMENT SACK BREAKER [address] [place] [address] PERSON INFORMATION Name KANDACE GONZALEZ Age 20 Years 2000 Sex Female Language French PCP KALIN PIKE MD-INT Marital Status Med Service Emergency Medicine Acct# Arrival 05/06/2021 16:42:00 Visit Reason Abdominal pain - ; 8WKS , STOMACH PAINS Acuity 3 - Urgent LOS 000 05:22 Depart Date: 05/06/21 10:04 PM Address: [address] [place] [id number] Comment: PROVIDER INFORMATION Provider Role Assigned Unassigned Audrey Perrin RN-PATIENT CARE BEDSIDE NON-EXEMPT ED Nurse 05/06/2021 19:39:24 CLEMENTINE GARDUNO MD-EMR ED Physician 05/06/2021 20:00:23 DIAGNOSIS UTI in PHYS DOC NOTES VITALS INFORMATION Vital Sign Triage Latest Temp Source Temporal artery scanning Temporal artery scanning Temp Mode Fahrenheit Fahrenheit Temp Fahrenheit 97.2 Deg F 97.2 Deg F Temp Celsius 02 Sat 100 % 100 % Respiratory Rate 20 Breaths/Min 20 Breaths/Min Peripheral Pulse Rate 81 bpm 81 bpm Apical Heart Rate Blood Pressure 107 mmHg / 54 mmHg 107 mmHg / 54 mmHg Comment: MEDICAL INFORMATION Allergy Info: penicillin Medications: Comment: DISCHARGE INFORMATION Discharge Disposition: Home Discharge Location: PATIENT EDUCATION INFORMATION Instructions: Abdominal Pain During , [id number]; Urinary Tract Infection, Adult, Slxj-rl-[id number] Follow up: With: Address: When: SHILO MASTERS [address], [address] [place], [place] [id number] Business (1) In 2 days 05/08/2021 With: Address: When: KALIN PIKE [address] [place] [address] Business (1) Within 2 to 3 days Comment: documented in this encounter Plan of Treatment Not on file documented as of this encounter Visit Diagnoses Not on filedocumented in this encounter Care Teams Registered Nurse Step Down Relationship Specialty Start Date End Date Maycol, JABARI Mares PCP - General Obstetrics 05/25/23 documented as of this encounter
--- OUTSIDE RECORDS SUMMARY | 2024-12-11 12:14 | XMS_ITS | Encounter Summary ---
Author Organization [employer] ([place], [place], [place], [place]) Address [address] [place] [address] Care Team Providers Care Infrastructure Administrator Name Role Phone Suzan Severino CNM Primary Care Provider [phone] Encounter Details Date Type Department Care Team (Late st Contact Info) Description 11/29/2021 Transcribed Document [facility] [place] Family Medicine [address] [place] [address] ProviderIsaías MD [address] [place] [address] Social History Tobacco Use Types [...] Do you speak a language other than Burkin[place] at [facility]? No 07/24/2023 Do you want help with [...] Conversion Note - Historical Provider, - 11/29/2021 1:09 AM CDT Nursing Discharge Summary Entered On: 11/29/2021 1:11 EDT Performed On: 11/29/2021 1:09 EDT by Shilpa Roberto RN Discharge Documentation Discharge Date/Time : 11/29/2021 1:10 EDT Patient Disposition, General : Discharge Discharge To : Home with ambulatory/outpatient follow-up Name of Receiving Facility/Provider : Dr. Calloway Mode Of Departure, General Discharge : Ambulatory Accompanied By, Discharge : Spouse IV Discontinued : Not applicable Personal Belongings With Patient : Yes Pt's Own Supply of Medications Returned : No patient supply of medications to return Prescriptions Given to Patient : No Medications Given to Patient : No Discharge Instructions Reviewed With, Opportunity For Questions Given : Patient Patient Education Completed : Yes Teaching Method : Explanation, Printed materials Teaching Evaluation : Verbalizes understanding Shilpa Roberto, RN - 11/29/2021 1:09 EDT Electronically signed by Alec [facility] Conversion General Supervisor Cerner at 09/11/2022 12:19 PM CDT documented in this encounter Plan of Treatment Not on file documented as of this encounter Visit Diagnoses Not on filedocumented in this encounter Care Teams Infrastructure Administrator Relationship Specialty Start Date End Date Maycol, JABARI Mares PCP - General Obstetrics 05/25/23 documented as of this encounter
--- OUTSIDE RECORDS SUMMARY | 2024-12-11 12:14 | XMS_ITS | Encounter Summary ---
Author Organization [employer] ([place], [place], [place], [place]) Address [address] [place] [address] Care Team Providers Care Psychological Tests Sales Agent Name Role Phone Maycol Suzan BARBOZA Primary Care Provider Encounter Details Date Type Department Care Team (Late st Contact Info) Description 05/06/2021 Transcribed Document [facility] [place] [address] [place] [address] ProviderIsaías MD [address] [place] [address] Social History Tobacco Use Types [...] Conversion Note - Isaías ProviderMD - 05/06/2021 9:54 PM [employer] [place] [address] KANDACE GONZALEZ :2000 Visit Time:05/06/2021 Your Visit Summary Your Care Team Primary Provider: CLEMENTINE GARDUNO Secondary Provider: Your Diagnosis Abdominal pain - UTI in Medical Information You may obtain a [...] do next Follow-Up Appointments Follow Up with SHILO MASTERS When In 2 days 05/08/2021 [facility] Where: [address] [place] [address] Business (1) Follow Up with KALIN PIKE When Within 2 to 3 days Where: [address] [place] [address]- Business (1) Allergies penicillin (Itching, Hives) Immunizations This Visit No Immunizations Found Medications What How Much When Instructions Next Dose cefUROXIME (Ceftin 500 mg oral tablet) 1 Tablet(s) Oral Two Times A Day Duration: 7 Day(s) Pickup at [facility] Pharmacy Information [facility]: [address] [place], [place] [id number] [phone] The home medications listed are only as [...] This Visit (last charted value for your 05/06/2021 visit) Hematology 05/06/2021 5:52 PM WBC: 10.3 K/uL -- Normal range between ( 3.9 and 10.0 ) RBC: 4.13 Million/uL -- Normal range between ( 3.93 and 5.22 ) Hct: 34.5 % -- Normal range between ( 34.1 and 44.9 ) Hgb: 11.8 Gram/dL -- Normal range between ( 11.2 and 15.7 ) Platelet Count: 204 K/uL -- Normal range between ( 163 and 369 ) MCH: 28.6 pg -- Normal range between ( 25.6 and 32.2 ) MCHC: 34.2 Gram/dL -- Normal range between ( 32.3 and 36.5 ) MCV: 83.5 fL -- Normal range between ( 79.0 and 94.8 ) Slide Review: No Eos %: 0.9 % -- Normal range between ( 1.0 and 7.0 ) Turner #: 0.73 K/uL -- Normal range between ( 0.24 and 0.82 ) Eos #: 0.09 K/uL -- Normal range between ( 0.04 and 0.54 ) Turner %: 7.1 % -- Normal range between ( 4.7 and 12.5 ) Baso %: 0.3 % -- Normal range between ( 0.0 and 1.0 ) Baso #: 0.03 K/uL -- Normal range between ( 0.01 and 0.08 ) RDW: 13.6 % -- Normal range between ( 11.6 and 14.4 ) Neut %: 70.7 % -- Normal range between ( 34.0 and 71.0 ) Neut #: 7.31 K/uL -- Normal range between ( 1.56 and 6.13 ) Lymph %: 20.6 % -- Normal range between ( 19.3 and 53.0 ) Lymph #: 2.13 K/uL -- Normal range between ( 1.18 and 3.74 ) MPV: 10.8 fL -- Normal range between ( 9.4 and 12.4 ) IG#: 0 x10(3)/uL IG%: 0 % -- Normal range between ( 0 and 1 ) Urinalysis 05/06/2021 6:19 PM Ur RBC: 0-2 /HPF Urine Nitrite: Negative Urine Leukocyte Esterase: Moderate Urine Appearance: Turbid Urine Glucose Dipstick: Negative Urine Blood Dipstick: Negative Urine Urobilinogen Dipstick: 1.0 EU/dL -- Normal range between ( 0.2 and 1.0 ) Urine Protein Dipstick: Negative Ur Amorph: 4+ Ur Bacteria: 1+ Ur Squamous Epithelial Cells: 20-50 /HPF Urine Color: Yellow Ur WBC: 5-10 /HPF Urine Ketones Dipstick: Negative Urine pH Dipstick: 6.5 -- Normal range between ( 6.0 and 8.0 ) Urine Bilirubin Dipstick: Negative Urine Specific [place]: 1.022 -- Normal range between ( 1.005 and 1.030 ) Urine Type.: U CleanCatch Urine Culture if Indicated: See Comment General Chemistry 05/06/2021 8:09 PM Lipase Level: 97 Units/Liter -- Normal range between ( 73 and 393 ) 05/06/2021 5:52 PM Creatinine Level: 0.39 mg/dL -- Normal range between ( 0.55 and 1.02 ) Sodium Level: 139 mmol/L -- Normal range between ( 136 and 146 ) Potassium Level: 3.7 mmol/L -- Normal range between ( 3.5 and 5.1 ) Chloride Level: 106 mmol/L -- Normal range between ( 102 and 112 ) Carbon Dioxide Level: 26 mmol/L -- Normal range between ( 21 and 32 ) Anion Gap: 11 -- Normal range between ( 9 and 20 ) Bilirubin Total: 0.2 mg/dL -- Normal range between ( 0.2 and 1.3 ) A/G Ratio: 1.2 -- Normal range between ( 1.1 and 2.5 ) ALT: 16 Units/Liter -- Normal range between ( 12 and 78 ) AST: 13 Units/Liter -- Normal range between ( 5 and 37 ) Globulin: 3.0 Gram/dL -- Normal range between ( 1.5 and 4.5 ) Alk Phos: 64 Units/Liter -- Normal range between ( 27 and 136 ) Bun/Creatinine: 25.6 -- Normal range between ( 8.0 and 20.0 ) Calcium Level: 8.6 mg/dL -- Normal range between ( 8.5 and 10.1 ) eGFR : >60 mL/min/1.73m2 eGFR NonAfrican: >60 mL/min/1.73m2 Glucose Level: 88 mg/dL -- Normal range between ( 74 and 106 ) Blood Urea Nitrogen: 10 mg/dL -- Normal range between ( 7 and 22 ) Protein Total: 6.6 Gram/dL -- Normal range between ( 6.4 and 8.2 ) Albumin Level: 3.6 Gram/dL -- Normal range between ( 3.4 and 5.0 ) [facility] 05/06/2021 5:52 PM HCG Serum Quant: 049863.0 mIU/mL Education Materials Abdominal Pain During Belly (abdominal) [...] your pee (urine) pale yellow. ??? Take kqxf-sig-xdtpkzd and prescription medicines only as told by [...] provider. Document Revised: 08/31/2019 Document Reviewed: 08/15/2017 [employer] Patient Education ?? 2020 [employer]. Urinary Tract Infection, Adult A urinary tract infection (UTI) is an infection of any part of the urinary tract. The urinary tract includes: ??? The kidneys. ??? The ureters. ??? The bladder. ??? The urethra. These organs make, store, and get rid of pee (urine) in the body. What are the causes? This is caused by germs (bacteria) in your genital area. These germs grow and cause swelling (inflammation) of your urinary tract. What increases the risk? You are more likely to develop this condition if: ??? You have a small, thin tube (catheter) to drain pee. ??? You cannot control when you pee or poop (incontinence). ??? You are female, and: ? You use these methods to prevent : ? A medicine that kills sperm (spermicide). ? A device that blocks sperm (diaphragm). ? You have low levels of a female hormone (estrogen). ? You are . ??? You have genes that add to your risk. ??? You are sexually active. ??? You take antibiotic medicines. ??? You have trouble peeing because of: ? A prostate that is bigger than normal, if you are male. ? A blockage in the part of your body that drains pee from the bladder (urethra). ? A kidney stone. ? A nerve condition that affects your bladder (neurogenic bladder). ? Not getting enough to drink. ? Not peeing often enough. ??? You have other conditions, such as: ? Diabetes. ? A weak disease-fighting system (immune system). ? Sickle cell disease. ? Gout. ? Injury of the spine. What are the signs or symptoms? Symptoms of this condition include: ??? Needing to pee right away (urgently). ??? Peeing often. ??? Peeing small amounts often. ??? Pain or burning when peeing. ??? Blood in the pee. ??? Pee that smells bad or not like normal. ??? Trouble peeing. ??? Pee that is cloudy. ??? Fluid coming from the vagina, if you are female. ??? Pain in the belly or lower back. Other symptoms include: ??? Throwing up (vomiting). ??? No urge to eat. ??? Feeling mixed up (confused). ??? Being tired and grouchy (irritable). ??? A fever. ??? Watery poop (diarrhea). How is this treated? This condition may be treated with: ??? Antibiotic medicine. ??? Other medicines. ??? Drinking enough water. Follow these instructions at home: Medicines ??? Take fpkz-wjf-ubakqvs and prescription medicines only as told by your doctor. ??? If you were prescribed an antibiotic medicine, take it as told by your doctor. Do not stop taking it even if you start to feel better. General instructions ??? Make sure you: ? Pee until your bladder is empty. ? Do not hold pee for a long time. ? Empty your bladder after sex. ? Wipe from front to back after pooping if you are a female. Use each tissue one time when you wipe. ??? Drink enough fluid to keep your pee pale yellow. ??? Keep all follow-up visits as told by your doctor. This is important. Contact a doctor if: ??? You do not get better after 1???2 days. ??? Your symptoms go away and then come back. Get help right away if: ??? You have very bad back pain. ??? You have very bad pain in your lower belly. ??? You have a fever. ??? You are sick to your stomach (nauseous). ??? You are throwing up. Summary ??? A urinary tract infection (UTI) is an infection of any part of the urinary tract. ??? This condition is caused by germs in your genital area. ??? There are many risk factors for a UTI. These include having a small, thin tube to drain pee and not being able to control when you pee or poop. ??? Treatment includes antibiotic medicines for germs. ??? Drink enough fluid to keep your pee pale yellow. This information is not intended to replace advice given to you by your health care provider. Make sure you discuss any questions you have with your health care provider. Document Revised: 04/30/2019 Document Reviewed: 11/20/2018 [employer] Patient Education ?? 2020 [employer]. Emergency Awareness and Preventative Care STROKE is [...] Assistance with quitting is available by contacting 6-725-KWTH-NOW. This is a free resource providing counseling, [...] was given the opportunity to ask questions. Patient/Supervisor Intermediates Name: Patient/Supervisor Intermediates Signature: Relationship to Patient: Clinician/Hospital Supervisor Intermediates Signature: Please Provide a Telephone Number Where You Can Be Reached: Is it Permissible To Leave a Message? Date: documented in this encounter Plan of Treatment Not on file documented as of this encounter Visit Diagnoses Not on filedocumented in this encounter Care Teams Psychological Tests Sales Agent Relationship Specialty Start Date End Date Suzan Severino CNM PCP - General Obstetrics 05/25/23 documented as of this encounter
--- OUTSIDE RECORDS SUMMARY | 2024-12-11 12:14 | XMS_ITS | Encounter Summary ---
Author Organization [employer] ([place], [place], [place], [place]) Address [address] [place] [address] Care Team Providers Care Solar Sales Energy Advisor Name Role Phone Suzan Severino CNM Primary Care Provider [phone]- [phone] Encounter Details Date Type Department Care Team (Late st Contact Info) Description 08/24/2021 Transcribed Document [facility] [place] Family Medicine [address] [place] [address] ProviderIsaías MD [address] [place] [address] Social History Tobacco Use Types [...] Do you speak a language other than Greenlandic at [facility]? No 07/24/2023 Do you want help [...] Historical Provider, - 08/24/2021 1:12 PM CDT Patient Education Materials Follows:and Gynecology Abdominal Pain During Belly (abdominal) pain is [...] your pee (urine) pale yellow. ??? Take vslc-kte-bdifhkj and prescription medicines only as told by [...] provider. Document Revised: 08/31/2019 Document Reviewed: 08/15/2017 [employer] Patient Education ? 2020 [employer]. Third Trimester of The third trimester of [...] these instructions at home: Medicines ??? Take sien-xnq-idsblha and prescription medicines only as told by [...] important. Where to find more information ??? [place] Association: americanpregnancy.org ??? [employer] College of Obstetricians and Gynecologists: www.acog.org ??? [...] provider. Document Revised: 10/19/2020 Document Reviewed: 08/25/2020 [employer] Patient Education ? 2020 [employer]. documented in this encounter Plan of Treatment Not on file documented as of this encounter Visit Diagnoses Not on filedocumented in this encounter Care Teams Solar Sales Energy Advisor Relationship Specialty Start Date End Date Maycol, JABARI Mares PCP - General Obstetrics 05/25/23 documented as of this encounter
--- OUTSIDE RECORDS SUMMARY | 2024-12-11 12:14 | XMS_ITS | Encounter Summary ---
Author Organization [employer] ([place], [place], [place], [place]) Address [address] [place] [address] Care Team Providers Care Lead Accountant Name Role Phone Suzan Severino CNM Primary Care Provider [phone]- [phone] Encounter Details Date Type Department Care Team (Late st Contact Info) Description 08/24/2021 Transcribed Document [facility] [place] Family Medicine [address] [place] [address] ProviderIsaías MD [address] [place] [address] Social History Tobacco Use Types [...] Do you speak a language other than Turkish at [facility]? No 07/24/2023 Do you want help [...] Conversion Note - Historical Provider, - 08/24/2021 11:07 AM CDT Admission Data, OB Entered On: 08/24/2021 11:08 EDT Performed On: 08/24/2021 11:07 EDT by JEFERSON GOLDSMITH RN Advance Directive Patient has Advance Directive *Q : No, patient refuses Advance Directive information JEFERSON GOLDSMITH RN - 08/24/2021 11:07 EDT Height and Weight Height Source : Stated Height Entry Format : Lee Height, Feet : 5 ft(Converted to: 152 cm, 60 Inch) Clinical Height : 160.02 cm Height, Inches : 3 Inch(Converted to: 0 ft 3 Inch, 7.62 cm) Weight Source : Standing scale Weight Entry Format : Lee Weight, Pounds : 127 lb Clinical Dosing Weight : 57.73 kg Body Surface Area (BSA) : 1.6 m2 Body Mass Index : 22.5 kg/m2 Zanoni Body Weight (IBW) : 52.02 kg JEFERSON GOLDSMITH RN - 08/24/2021 11:07 EDT Health Histories Smoking Status : Never (less than 100 in lifetime; none in last 30 days) Smokeless Tobacco Status : Never JEFERSON GOLDSMITH RN - 08/24/2021 11:07 EDT Social History (As Of: 08/24/2021 11:08:44 EDT) Tobacco: Never (less than 100 in lifetime) Smoking Status. (Last Updated: 05/06/2021 17:50:36 EST by Esha Burns RN) Influenza Vaccine Asmt, Adult Previous Vaccines from Immunization Schedule : No qualifying data available. Influenza Immunization, Current Season : No Inactivated Flu Vaccine Contraindications : No contraindications to inactivated influenza vaccine Transplant Workup/Recent Transplant : No Order for Influenza Vaccine : Declined Vaccination JEFERSON GOLDSMITH RN - 08/24/2021 11:07 EDT Pneumococcal Vaccine Previous Vaccines from Immunization Schedule : No qualifying data available. Pneumonia Immunization Received : No Pneumococcal Risk Assessment < Age 65 : None JEFERSON GOLDSMITH RN - 08/24/2021 11:07 EDT Order Details Patient Needs Meds Crushed/Liquid : No JEFERSON GOLDSMITH RN - 08/24/2021 11:07 EDT Vital Measurements Temperature Source : Oral Temperature Mode : Fahrenheit Temperature, Fahrenheit : 98.1 Deg F Clinical Temperature, C : 36.7 Deg C Pulse Method : Non-Invasive BP Device Peripheral Pulse Rate : 85 bpm Pulse Rhythm : Regular Blood Pressure Location : Arm, right upper Systolic Blood Pressure : 89 mmHg (LOW) Diastolic Blood Pressure : 54 mmHg (LOW) JEFERSON GOLDSMITH RN - 08/24/2021 11:07 EDT Infectious Disease History Does patient have symptoms of COVID-19? : No Has the Patient Been Tested for COVID-19 in the last 14 days? : No, Patient stated Does the Patient state known exposure to a COVID-19 positive case in the last 14 days? : No Patient Vaccinated for COVID-19 : Not vaccinated Does Patient want a COVID-19 Vaccine? : No JEFERSON GOLDSMITH RN - 08/24/2021 11:07 EDT Infectious Disease Risk Screening Grid Cough < 2 wks of unknown origin : NO Cough > 2 weeks : NO Blood in Sputum : NO Fever or self-reported Fever : NO Rash of unknown origin : NO Headache : NO Stiff neck : NO Night Sweats : NO Unexplained Weight Loss : NO Diarrhea (3 episode per day) : NO JEFERSON GOLDSMITH RN - 08/24/2021 11:07 EDT Physical contact outside [place] in the last 30 days : No Hospitalized in Foreign Country : No Infectious Disease History : None INF Disease TB Screening Calc : 0 INF Disease Recent Travel Calc : 0 JEFERSON GOLDSMITH RN - 08/24/2021 11:07 EDT [place] Suicide Severity Rating Scale (C-SSRS) CSSRS Past Month Wish to be : No CSSRS Past Month Suicidal Thoughts : No CSSRS Lifetime Suicide Behavior : No Suicide Severity Rating Score : 0 Suicide Severity Rating : No Additional Care Required at this time JEFERSON GODLSMITH RN - 08/24/2021 11:07 EDT documented in this encounter Plan of Treatment Not on file documented as of this encounter Visit Diagnoses Not on filedocumented in this encounter Care Teams Lead Accountant Relationship Specialty Start Date End Date Suzan Severino CNM PCP - General Obstetrics 05/25/23 documented as of this encounter
--- OUTSIDE RECORDS SUMMARY | 2024-12-11 12:14 | XMS_ITS | Encounter Summary ---
Author Organization [employer] ([place], [place], [place], [place]) Address [address] [place] [address] Care Team Providers Care Hoop Bender Tank Name Role Phone Jone Lopez CNM Primary Care Provider [phone]- [phone] Encounter Details Date Type Department Care Team (Late st Contact Info) Description 08/24/2021 Transcribed Document [facility] [place] [address] [place] [address] ProviderIsaías MD [address] [place] [address] Social History Tobacco Use Types [...] Do you speak a language other than [place] at [facility]? No 07/24/2023 Do you want [...] Conversion Note - Historical Provider, - 08/24/2021 1:[place] [address] KANDACE GONZALEZ :2000 Visit Time:08/24/2021 Your Visit [...] your pee (urine) pale yellow. ??? Take xvcr-bwc-qbkokfl and prescription medicines only as told by [...] provider. Document Revised: 08/31/2019 Document Reviewed: 08/15/2017 [employer] Patient Education ?? 2020 [employer] Third Trimester of The third trimester [...] these instructions at home: Medicines ??? Take ifac-enf-dehwhva and prescription medicines only as told by [...] important. Where to find more information ??? [place] Association: americanpregnancy.org ??? [place] College of Obstetricians and Gynecologists: www.acog.org ??? [...] provider. Document Revised: 10/19/2020 Document Reviewed: 08/25/2020 [employer] Patient Education ?? 2020 [employer]NOW. Emergency Awareness and Preventative Care STROKE is [...] Assistance with quitting is available by contacting 9-139-RNEO-NOW. This is a free resource providing counseling, [...] ) Urine Bilirubin Dipstick: Negative Urine Specific [place]: 1.014 -- Normal range between ( 1.005 [...] was given the opportunity to ask questions. Patient/Office Manager Receptionist Name: Patient/Office Manager Receptionist Signature: Relationship to Patient: Clinician/Hospital Office Manager Receptionist Signature: Date: Electronically signed by Alec, [facility] Conversion Elder Assistant Cerner at 09/11/2022 12:24 PM CDT documented in this encounter Plan of Treatment Not on file documented as of this encounter Visit Diagnoses Not on filedocumented in this encounter Care Teams Hoop Bender Tank Relationship Specialty Start Date End Date Jone Lopez CNM PCP - General Obstetrics 05/25/23 documented as of this encounter
--- OUTSIDE RECORDS SUMMARY | 2024-12-11 12:14 | XMS_ITS | Encounter Summary ---
Author Organization [employer] ([place], [place], [place], [place]) Address [address] [place] [address] Care Team Providers Care Manufacturing Plant Technician Name Role Phone Suzan Severino CNM Primary Care Provider [phone]- [phone] Encounter Details Date Type Department Care Team (Late st Contact Info) Description 08/24/2021 Transcribed Document [facility] [place] [address] [place] [address] ProviderIsaías MD [address] [place] [address] Social History Tobacco Use Types [...] Do you speak a language other than Sudanese at [facility]? No 07/24/2023 [...] Historical Provider, - 08/24/2021 1:12 PM CDT Nursing Discharge Summary Entered On: 08/24/2021 13:12 EDT Performed On: 08/24/2021 13:12 EDT by JEFERSON GOLDSMITH RN Discharge Documentation Discharge Date/Time : 08/24/2021 13:15 EDT Patient Disposition, General : Discharge Discharge To : Home with ambulatory/outpatient follow-up Mode Of Departure, General Discharge : Ambulatory Accompanied By, Discharge : Significant other IV Discontinued : Not applicable Personal Belongings With Patient : Yes Discharge Instructions Reviewed With, Opportunity For Questions Given : Patient, Significant other Patient Education Completed : Yes Teaching Method : Explanation, Printed materials Teaching Evaluation : Verbalizes understanding JEFERSON GOLDSMITH RN - 08/24/2021 13:12 EDT documented in this encounter Plan of Treatment Not on file documented as of this encounter Visit Diagnoses Not on filedocumented in this encounter Care Teams Manufacturing Plant Technician Relationship Specialty Start Date End Date Suzan Severino CNM PCP - General Obstetrics 05/25/23 documented as of this encounter
--- OUTSIDE RECORDS SUMMARY | 2024-12-11 12:14 | XMS_ITS | Encounter Summary ---
Author Organization [employer] ([place], [place], [place], [place]) Address [address] [place] [address] Care Team Providers Care Steel Heater Name Role Phone Suzan Severino CNM Primary Care Provider [phone] Encounter Details Date Type Department Care Team (Late st Contact Info) Description 11/29/2021 Transcribed Document [facility] [place] [address] [place] [address] ProviderIsaías MD [address] [place] [address] Social History Tobacco Use Types [...] Do you speak a language other than [place]ralt[place] at [facility]? No 07/24/2023 Do you want help with [...] Conversion Note - Historical Provider, - 11/29/2021 1:11 [place] [address] KANDACE GONAZLEZ :2000 Visit Time:11/28/2021 Your Visit Summary Your Care Team Admitting Physician - SHILO MASTERS MD-OBG Attending Physician - SHILO MASTERS MD-OBG Primary Care Physician - [facility] (REF), Referring Physician - SHILO MASTERS MD-OBG Your Diagnosis Encounter for supervision of normal first , unspecified trimester, Encounter for supervision of normal first , unspecified trimester These Are Your Goals No qualifying data available. Discharge Vitals Temperature 36.9 ??C Respiratory Rate 16 Blood Pressure 106/60 What to do next Instructions From Your Care Team Discharge Activity: Discharge Activity: Activity as tolerated Diet: Discharge Diet: Resume usual diet as tolerated Follow-Up Appointments Follow Up with Follow up with clinic When Within 2 to 3 days Comments Follow-up as instructed, Keep scheduled visits Where: Medications What How Much When Instructions Next [...] This Visit No Immunizations Found Education Materials Third Trimester of The third trimester of [...] these instructions at home: Medicines ??? Take nutc-qvx-flcayyk and prescription medicines only as told by [...] important. Where to find more information ??? [place] Association: americanpregnancy.org ??? [place] [employer] Obstetric[employer] Gynec[employer]: www.acog.org ??? [...] provider. Document Revised: 10/19/2020 Document Reviewed: 08/25/2020 [employer] Patient Education ?? 2020 lifeaction games. Emergency Awareness and Preventative Care STROKE is [...] Assistance with quitting is available by contacting 3-737-SVKI-NOW. This is a free resource providing counseling, [...] This Visit (last charted value for your 11/28/2021 visit) Urinalysis 11/29/2021 0:28 AM Ur RBC: 0-2 Urine Nitrite: Negative Urine Leukocyte Esterase: 25 Urine Appearance: Clear Urine Glucose Dipstick: Normal Urine Blood Dipstick: Negative Urine Urobilinogen Dipstick: Normal Urine Protein Dipstick: Negative Ur Bacteria: NONE Ur Squamous Epithelial Cells: NONE /HPF Urine Color: Colorless Ur WBC: 0-2 /HPF Urine Ketones Dipstick: Negative Urine pH Dipstick: 7.0 -- Normal range between ( 6.0 and 8.0 ) Urine Bilirubin Dipstick: Negative Urine Specific [place]: 1.003 -- Normal range between ( 1.005 and 1.030 ) Urine Type.: U CleanCatch Urine Culture if Indicated: Not Indicated Maternal Screening 11/28/2021 11:18 PM Amniotic Fluid ROM: Negative Patient Name:CARLOS KANDACE MARIE I have received and understand this information and was given the opportunity to ask questions. Patient/Loan Consultant Name: Patient/Loan Consultant Signature: Relationship to Patient: Clinician/Hospital Loan Consultant Signature: Date: Electronically signed by Alec, [facility] Conversion Medical Services Assistant Cerner at 09/11/2022 12:24 PM CDT documented in this encounter Plan of Treatment Not on file documented as of this encounter Visit Diagnoses Not on filedocumented in this encounter Care Teams Steel Heater Relationship Specialty Start Date End Date Suzan Severino CNM PCP - General Obstetrics 05/25/23 documented as of this encounter
--- OUTSIDE RECORDS SUMMARY | 2024-12-11 12:15 | XMS_ITS | Encounter Summary ---
Author Organization [employer] ([place], [place], [place], [place]) Address [address] [place] [address] Care Team Providers Care Campaign Specialist Name Role Phone MaycolElisabethSuzan CNM Primary Care Provider Encounter Details Date Type Department Care Team (Late st Contact Info) Description 05/05/2021 Transcribed Document [facility] [place] [address] [place] [address] ProviderIsaías MD [address] [place] [address] Social History Tobacco Use Types [...] Cerner Conversion Note - Isaías ProviderMD - 05/05/2021 9:41 AM CLIENT FINANCE ANALYST [address] [place] [address] PERSON INFORMATION Name KANDACE GONZALEZ Age 20 Years 2000 Sex Female Language [place]ican PCP KALIN PIKE MD-INT Marital Status Med Service Emergency Medicine Acct# Arrival 05/05/2021 07:34:00 Visit Reason Abdominal pain - ; Abdominal pain in ; 8 WKS CRAMPING Acuity 3 - Urgent LOS 000 02:07 Depart Date: 00:00 AM Address: [address] [place] [id number] Comment: PROVIDER INFORMATION Provider Role Assigned Unassigned YAHAIRA MCANIR DO ED Physician 05/05/2021 07:35:59 Tamera Birmingham, MAINTENANCE DIRECTOR Nurse 05/05/2021 07:46:01 DIAGNOSIS Abdominal pain in PHYS DOC NOTES VITALS INFORMATION Vital Sign Triage Latest Temp Source Temporal artery scanning Temporal artery scanning Temp Mode Fahrenheit Fahrenheit Temp Fahrenheit 97.2 Deg F 97.2 Deg F Temp Celsius 02 Sat 100 % 100 % Respiratory Rate 16 Breaths/Min 16 Breaths/Min Peripheral Pulse Rate 79 bpm 79 bpm Apical Heart Rate Blood Pressure 128 mmHg / 60 mmHg 128 mmHg / 60 mmHg Comment: MEDICAL INFORMATION Allergy Info: penicillin Medications: Comment: DISCHARGE INFORMATION Discharge Disposition: Discharge Location: PATIENT EDUCATION INFORMATION Instructions: Abdominal Pain During Follow up: With: Address: When: KALIN PIKE [facility] [place] [id number] [facility] (1) Within 2 to 3 days Comment: Electronically signed by Sukhjinder Michael Conversion Certified Emergency Vehicle Technician Cerner at 09/11/2022 12:39 PM CDT documented in this encounter Plan of Treatment Not on file documented as of this encounter Visit Diagnoses Not on filedocumented in this encounter Care Teams Campaign Specialist Relationship Specialty Start Date End Date Maycol, JABARI Mares PCP - General Obstetrics 05/25/23 documented as of this encounter
--- OUTSIDE RECORDS SUMMARY | 2024-12-11 12:15 | XMS_ITS | Encounter Summary ---
Author Organization [employer] ([place], [place], [place], [place]) Address [address] [place] [address] Care Team Providers Care It Solutions Sales Consultant Name Role Phone Maycol Suzan BARBOZA Primary Care Provider Encounter Details Date Type Department Care Team (Late st Contact Info) Description 05/05/2021 Transcribed Document [facility] [place] [address] [place] [address] ProviderIsaías MD [address], [place] [address] Social History Tobacco Use Types Packs/Day Years Used Date Smoking Tobacco: Never Assessed Comments Unknown Sex and Gender Information Value Date Recorded Sex Assigned at Female 11/21/2021 6:51 PM CDT Legal Sex Female 6:51 PM CDT Gender Identity Female 11/21/2021 6:51 PM CDT Sexual Orientation Not on file documented as of this encounter Miscellaneous Notes * Cerner Conversion Note - Historical ProviderMD - 05/05/2021 7:52 AM VEHICLE REFINISHER Patient: KANDACE GONZALEZ Age: 20 years Sex: Female : 2000 Associated Diagnoses: Abdominal pain in Author: YAHAIRA MCNAIR DO Basic Information Time seen: Date 05/05/2021, Immediately upon arrival. History source: Patient. Arrival mode: Private vehicle. History limitation: None. Additional information: Chief Complaint from Nursing Triage Note : Chief Complaint 05/05/2021 7:39 EST Chief Complaint Pt states 8 weeks c LMP 03/12. . Had stressful event at home last night, woke with lower abdominal/pelvic pain and increase in nausea this a.m. Denies spotting. [facility]. . History of Present Illness The patient presents with abdominal pain during . The onset was 2 hours ago. The course/duration of symptoms is worsening. The location is pelvis. The character of symptoms is crampy. The degree at onset was minimal. The degree at present is minimal. Radiating pain: none. Status : 1, Para: 0 8 weeks. The exacerbating factor is none. The relieving factor is none. Risk factors consist of none. Prior episodes: none. Therapy today: none. symptoms none. Associated symptoms: none. Additional history: none. Review of Systems Additional review of systems information: All other systems reviewed and otherwise negative. Health Status Allergies: No known allergies. Medications: Per nurse's notes. Immunizations: Per nurse's notes. Menstrual history: Per nurse's notes. history: Currently . Past Medical/ Family/ Social History Medical history Reviewed as documented in chart. Surgical history: Reviewed as documented in chart. Family history: Reviewed as documented in chart. Social history: Reviewed as documented in chart. Problem list: Per nurse's notes. Physical Examination Vital Signs Oxygen saturation. General: Alert, no acute distress. Skin: Warm, dry, pink, intact, no pallor, no rash, normal for ethnicity. Head: Normocephalic, atraumatic. Neck: Supple, trachea midline, no tenderness, no JVD, no carotid bruit. Eye: Pupils are equal, round and reactive to light, extraocular movements are intact, normal conjunctiva, vision unchanged. Ears, nose, mouth and throat: Tympanic membranes clear, oral mucosa moist, no pharyngeal erythema or exudate. Cardiovascular: Regular rate and rhythm, No murmur, Normal peripheral perfusion, No edema. Respiratory: Lungs are clear to auscultation, respirations are non-labored, breath sounds are equal, Symmetrical chest wall expansion. Chest wall: No tenderness, No deformity. Back: Nontender, Normal range of motion, Normal alignment, no step-offs. Musculoskeletal: Normal ROM, normal strength, no tenderness, no swelling, no deformity. Gastrointestinal: Soft, Nontender, Non distended, Normal bowel sounds, No organomegaly. Genitourinary: No tenderness. Neurological: Alert and oriented to person, place, time, and situation, No focal neurological deficit observed, CN II-XII intact, normal sensory observed, normal motor observed, normal speech observed, normal coordination observed. Lymphatics: No lymphadenopathy. Psychiatric: Cooperative, appropriate mood & affect, normal judgment, non-suicidal. Medical Decision Making Differential Diagnosis: Abdominal pain, ectopic , discomfort of , threatened . Documents reviewed: Emergency department nurses' notes, emergency department records, prior records. Results review: Lab results : Lab Results 05/05/2021 8:17 EST Sodium Level 138 mmol/L [...] 15.9 % LOW Lymph # 1.48 x10(3)/uL Hudson % 6.0 % Hudson # 0.56 K/uL Eos % 0.8 % Eos # 0.07 x10(3)/uL Baso % 0.3 % Baso # 0.03 x10(3)/uL Slide Review No IG# 0.05 x10(3)/uL IG% 0.50 % Urine Type. U CleanCatch Urine Color Yellow Urine Appearance Turbid Urine Specific [place] 1.014 Urine pH Dipstick *8.0 Urine Leukocyte Esterase Trace Urine Nitrite Negative Urine Protein Dipstick Negative Urine Glucose Dipstick Negative Urine Ketones Dipstick Negative Urine Urobilinogen Dipstick 0.2 EU/dL Urine Bilirubin Dipstick Negative Urine Blood Dipstick Negative Ur WBC 2-5 /HPF Ur Amorph 3+ Ur Squamous Epithelial Cells 2-5 /HPF Urine Culture if Indicated Not Indicated HCG Serum Quant 110,458.0 mIU/mL NA . Radiology results: Ultrasound, interpretation: live iup. no ectopic, No Radiology Results Found. Impression and Plan Diagnosis Abdominal pain in - Discharge, Emergency medicine, Medical Plan Condition: Stable. Disposition: Discharged Admit/Transfer/Discharge: Discharge (Order): Start: 05/05/2021 9:40 EST, Discharge to: Home. Patient was given the following educational materials: Abdominal Pain During . Follow up with: KALIN PIKE Within 2 to 3 days, KALIN PIKE Within 2 to 3 days. Counseled: Patient, Regarding diagnosis, Regarding diagnostic results, Regarding prescription. Notes: Emergency department course, ultrasound shows live IUP. There is some mild subchorionic bleeding. Her abdominal exam shows no peritoneal signs. Labs unremarkable. hCG is 110,000. I instructed her on bed rest and follow-up with her OB doctor in 1 to 2 days. I gave her clear return precautions. She states her blood type is Rh+. She is already on antibiotics for urinary tract infection. No bacteria seen in the urine. documented in this encounter Plan of Treatment Not on file documented as of this encounter Visit Diagnoses Not on filedocumented in this encounter Care Teams It Solutions Sales Consultant Relationship Specialty Start Date End Date Suzan Severino CNM PCP - General Obstetrics 05/25/23 documented as of this encounter
--- OUTSIDE RECORDS SUMMARY | 2024-12-11 12:15 | XMS_ITS | Encounter Summary ---
Author Organization [employer] ([place], [place], [place], [place]) Address [address] [place] [address] Care Team Providers Care Slurry Control Operator Helper Name Role Phone Suzan Severino CNM Primary Care Provider Encounter Details Date Type Department Care Team (Late st Contact Info) Description 05/05/2021 Transcribed Document [facility] [place] [address] [place] [address] ProviderIsaías MD [address] [place] [address] Social History Tobacco Use Types [...] Conversion Note - Isaías ProviderMD - 05/05/2021 10:29 AM INFORMATION TECHNOLOGY ADMINISTRATOR [facility] [place] [address] Visit Date/Time: 05/05/2021 10:29:19 KANDACE GONZALEZ The above patient was seen in the hospital today and needs to be excused from work/school until Return to Work/School Date: Please remain on bedrest until you follow-up with your FISHER EEL SPEAR for further instructions. Electronically signed by Alec [facility] Conversion Supervisor Alum Plant Cerner at 09/11/2022 12:18 PM CDT documented in this encounter Plan of Treatment Not on file documented as of this encounter Visit Diagnoses Not on filedocumented in this encounter Care Teams Slurry Control Operator Helper Relationship Specialty Start Date End Date Suzan Severino CNM PCP - General Obstetrics 05/25/23 documented as of this encounter
--- OUTSIDE RECORDS SUMMARY | 2024-12-11 12:15 | XMS_ITS | Encounter Summary ---
Author Organization [employer] ([place], [place], [place], [place]) Address [address] [place] [address] Care Team Providers Care Choker Hooker Name Role Phone Suzan Severino CNM Primary Care Provider [phone]- [phone] Encounter Details Date Type Department Care Team (Late st Contact Info) Description 12/19/2021 Transcribed Document [facility] [place] [address] [place] [address] ProviderIsaías MD [address] [place] [address] Social History Tobacco Use Types [...] Do you speak a language other than Norwegian at [facility]? No 07/24/2023 Do you want help with [...] Cerner Conversion Note - Historical Provider, - 12/19/2021 12:48 PM CDT Patient: KANDACE GONZALEZ Age: 21 Years Sex: Female : 2000 Chief Complaint: Postop day 2 primary c/s Subjective Doing well, no problems or complaints. Tylenol and Motrin helping incision pain. Bottlefeeding going well. Review of Systems NAD Objective Vitals & Measurements VSS General: NAD Breast: Nontender, bottlefeeding Cardiovascular: RRR Lungs: CTA Abdomen: Fundus firm, lochia equal to menses Ext: No edema or calf pain Incision/Episiotomy/Lac: C/S incision CDI steristrips and dermabond intact Assessment/Plan Continue routine PP care. Plan to d/c home tomorrow. 40 weeks gestation of Z3A.40 delivery delivered O82 Encounter for supervision of normal first , unspecified trimester Z34.00, Encounter for supervision of normal first , unspecified trimester Z34.00 bradycardia, delivered, current hospitalization O76 1. Encourage ambulation/incentive spirometry every 15 minutes 2. DVT Prophylaxis 3. Tobacco abuse assessment: Smoker Yes(_)/No(_), If yes, plan: 4. control discussion and choice: 5. Feeding choice: 6. Vaccinations: 7. Return appointment: 8. depression follow-up plan: 9. Two hour OGTT scheduled for 6 week visit: Yes(_)/No(_) Data [place] (_) NICU (_) Medications Inpatient aluminum hydroxide/magnesium hydroxide/simethicone 200 mg-200 mg-20 mg/5 mL oral suspension, 30 mL, Oral, Q4H, PRN Ambien, 5 mg= 1 Tab, Oral, At Bedtime, PRN Colace, 100 mg= 1 Cap, Oral, TID Cytotec, 1000 mcg= 5 Tab, Rectal, 1-Time, PRN Dextrose 5% in Lactated Ringers intravenous solution 1,000 mL, 1000 mL, IntraVENous Dilaudid 6 mg/30 ml PRODUCTION CONTROL CLERK 6 mg, 6 mg= 30 mL, IntraVENous Dulcolax Laxative, 10 mg= 1 Supp, Rectal, BID, PRN Hemabate, 250 mcg= 1 mL, IntraMuscular, 1-Time, PRN hydrocortisone-pramoxine 1%-1% rectal cream, 1 Application, Rectal, Q4H, PRN ibuprofen, 600 mg= 1 Tab, Oral, Q6H lanolin topical ointment, 1 Application, Topical, See Comment, PRN Methergine, 0.2 mg= 1 mL, IntraMuscular, 1-Time, PRN naloxone, 0.2 mg= 0.2 mL, IV Push, On-CALL, PRN Normal Saline Flush, 10 mL, IV Push, Q8H Normal Saline Flush, 10 mL, IV Push, See Comment, PRN Pepcid, 20 mg= 1 Tab, Oral, Q12H, PRN Percocet 5/325 oral tablet, 1 Tab, Oral, Q4H, PRN Percocet 5/325 oral tablet, 2 Tab, Oral, Q4H, PRN simethicone, 125 mg= 1 Tab, Oral, TID Tylenol, 650 mg= 2 Tab, Oral, Q4H, PRN Zofran, 4 mg= 2 mL, IV Push, Q4H, PRN Home Multivitamins, Oral, Daily Problem List/Past Medical History Ongoing No chronic problems Historical No qualifying data Lab Results DEC 18 08:14 \ 11.2 / H 17.4 181 / L 33.4 \ Electronically signed by Alec, Sukhjinder Conversion [employer]adata Solution Architect Cerner at 09/11/2022 12:14 PM CDT documented in this encounter Plan of Treatment Not on file documented as of this encounter Visit Diagnoses Not on filedocumented in this encounter Care Teams Choker Hooker Relationship Specialty Start Date End Date Suzan Sevreino CNM PCP - General Obstetrics 05/25/23 documented as of this encounter
--- OUTSIDE RECORDS SUMMARY | 2024-12-11 12:15 | XMS_ITS | Encounter Summary ---
Author Organization [employer] ([place], [place], [place], [place]) Address [address] [place] [address] Care Team Providers Care Drum Sander Name Role Phone Suzan Severino CNM Primary Care Provider Encounter Details Date Type Department Care Team (Late st Contact Info) Description 05/05/2021 Transcribed Document [facility] [place] [address] [place] [address] ProviderIsaías MD [address] [place] [address] Social History Tobacco Use Types [...] Conversion Note - Isaías ProviderMD - 05/05/2021 7:34 AM DATABASE ADMIN ED Triage Entered On: 05/05/2021 7:43 EST Performed On: 05/05/2021 7:39 EST by Tamera Birmingham, RN POST PARTUM Triage Across the Room Chief Complaint : Pt states 8 weeks c LMP 03/12. . Had stressful event at home last night, woke with lower abdominal/pelvic pain and increase in nausea this a.m. Denies spotting. [facility] at [facility]. Triage Date/Time : 05/05/2021 7:39 EST Tamera Birmingham RN - 05/05/2021 7:39 EST DCP GENERIC CODE Tracking Acuity : 3 - Urgent Tracking Group : [facility] ED Tamera Birmingham RN - 05/05/2021 7:39 EST Mode of Arrival : Ambulatory Transported to ED by : Private vehicle To Room Via : Ambulate Accompanied By : Unaccompanied ED Vital Signs : Document Height & Weight : Document ED Allergies : Document ED Reason for Visit : Document Yard Hostler Needed : No Tamera Birmingham RN - 05/05/2021 7:39 EST Infectious Disease History Does patient have symptoms of COVID-19? : No Has the Patient Been Tested for COVID-19 in the last 14 days? : No, Patient stated Does the Patient state known exposure to a COVID-19 positive case in the last 14 days? : No Patient Vaccinated for COVID-19 : Not vaccinated Does Patient want a COVID-19 Vaccine? : No Tamera Birmingham RN - 05/05/2021 7:39 EST Infectious Disease Risk Screening Grid Cough < 2 wks of unknown origin : NO Cough > 2 weeks : NO Blood in Sputum : NO Fever or self-reported Fever : NO Rash of unknown origin : NO Headache : NO Stiff neck : NO Night Sweats : NO Unexplained Weight Loss : NO Diarrhea (3 episode per day) : NO Tamera Birmingham RN - 05/05/2021 7:39 EST Physical contact outside [place] in the last 30 days : No Hospitalized in Foreign Country : No Infectious Disease History : None INF Disease TB Screening Calc : 0 INF Disease Recent Travel Calc : 0 Tamera Birmingham RN - 05/05/2021 7:39 EST Vital Signs ED Temperature Source : Temporal artery scanning Temperature Mode : Fahrenheit Temperature, Fahrenheit : 97.2 Deg F ED Pain : Yes Clinical Temperature, C : 36.2 Deg C Oxygen Therapy Mode : Room air Peripheral Pulse Rate : 79 bpm Respiratory Rate : 16 Breaths/Min Systolic Blood Pressure : 128 mmHg Diastolic Blood Pressure : 60 mmHg Oxygen Saturation : 100 % Tamera Birmingham RN - 05/05/2021 7:39 EST Allergy (As Of: 05/05/2021 07:43:08 EST) Allergies (Active) penicillin Estimated Onset Date: Unspecified ; Created By: Tamera Birmingham RN; Reaction Status: Active ; Category: Drug ; Substance: penicillin ; Type: Allergy ; Updated By: Tamera Birmingham RN; Reviewed Date: 05/05/2021 7:42 EST Diagnosis Control ED (As Of: 05/05/2021 07:43:08 EST) Diagnoses(Active) Abdominal pain in Date: 05/05/2021 ; Diagnosis Type: Reason For Visit ; Confirmation: Complaint of ; Clinical Dx: Abdominal pain in ; Classification: Medical ; Clinical Service: Non-Specified ; Code: PNED ; Probability: 0 ; Diagnosis Code: [id number] ED Height and Weight Height Source : Stated Height Entry Format : [place] Height, Feet : 5 ft(Converted to: 152 cm, 60 Inch) Height, Inches : 3.75 Inch(Converted to: 0 ft 4 Inch, 9.52 cm) Clinical Height : 161.93 cm Weight Source, ED : Standing scale Weight Entry Format : [place] Weight, Pounds : 101.8 lb Clinical Dosing Weight : 46.27 kg Body Surface Area (BSA) : 1.47 m2 Body Mass Index : 17.6 kg/m2 (<LLOW) [place] Body Weight (IBW) : 53.74 kg Tamera Birmingham RN - 05/05/2021 7:39 EST Pain Assessment Pain Assessment : Initial assessment Pain Scale Used : 0-10 Scale Tamera Birmingham RN - 05/05/2021 7:39 EST Pain Scale Intensity : 4 Tamera Birmingham RN - 05/05/2021 7:39 EST Image 4 - Images currently included in the form version of this document have not been included in the text rendition version of the form. documented in this encounter Plan of Treatment Not on file documented as of this encounter Visit Diagnoses Not on filedocumented in this encounter Care Teams Drum Sander Relationship Specialty Start Date End Date Maycol JABARI Mares PCP - General Obstetrics 05/25/23 documented as of this encounter
--- OUTSIDE RECORDS SUMMARY | 2024-12-11 12:15 | XMS_ITS | Encounter Summary ---
Author Organization [employer] ([place], [place], [place], [place]) Address [address] [place] [address] Care Team Providers Care Rework Machine Operator Name Role Phone Suzan Severino CNM Primary Care Provider Encounter Details Date Type Department Care Team (Late st Contact Info) Description 05/05/2021 Transcribed Document [facility] [place] [address] [place] [address] ProviderIsaías MD [address] [place] [address] Social History Tobacco Use Types [...] Conversion Note - Historical ProviderMD - 05/05/2021 10:26 AM SALES ADVISOR [facility] [place] [address] Visit Date/Time: 05/05/2021 10:26:25 KANDACE GONZALEZ The above patient was seen in the hospital today and needs to be excused from work/school until Return to Work/School Date:bed rest until cleared by OB. Recommend follow up with OB within 2-3 days. Electronically signed by Alec [facility] Conversion Pile Header Cerner at 09/11/2022 12:37 PM CDT documented in this encounter Plan of Treatment Not on file documented as of this encounter Visit Diagnoses Not on filedocumented in this encounter Care Teams Rework Machine Operator Relationship Specialty Start Date End Date Suzan Severino CNM PCP - General Obstetrics 05/25/23 documented as of this encounter
--- OUTSIDE RECORDS SUMMARY | 2024-12-11 12:15 | XMS_ITS | Encounter Summary ---
Author Organization [employer] ([place], [place], [place], [place]) Address [address] [place] [address] Care Team Providers Care Guillotine Trimmer Name Role Phone Suzan Severino CNM Primary Care Provider [phone] Encounter Details Date Type Department Care Team (Late st Contact Info) Description 12/18/2021 Transcribed Document [facility] [place] Medicine [address] [place] [address] ProviderIsaías MD [address] [place] [address] Social History Tobacco Use Types [...] Do you speak a language other than [place] at [facility]? No 07/24/2023 [...] Cerner Conversion Note - Historical Provider, - 12/18/2021 1:20 PM CDT UM Authorization Entered On: 12/18/2021 13:21 EDT Performed On: 12/18/2021 13:20 EDT by SHARAD VELAZCO RN-Utilization Review Primary Insurance Authorization Authorization and Policy Numbers : Insurance 1 Health Plan: [facility] Policy Number: [id number] Authorization Number: Insurance Primary Name : [facility] Authorization Status-Primary : Admit approved Reference Number-Primary : [id number] Authorization Number-Primary : [id number] Number of Days Authorized-Primary : 4 Day(s) Authorized Service Begin Date-Primary : 12/17/2021 EDT Authorized Service End Date-Primary : 12/21/2021 EDT Authorization Comments-Primary : [facility] approved per fax for 5 days Historical Authorization Comments-Primary : Comment 1: Submitted Notification of IP Hospital Admission and Faxed/ Attached Delivery Clinicals to [facility] with noted Authorization # above. Please notify of DC date or any additional days needed. (Aly Alcaraz, enlisted advisor 12/18/2021 10:15) SHARAD VELAZCO RN-Utilization Review - 12/18/2021 13:20 EDT Electronically signed by Alec [facility] Conversion Buffing Wheel Operator Cerner at 09/11/2022 12:15 PM CDT documented in this encounter Plan of Treatment Not on file documented as of this encounter Visit Diagnoses Not on filedocumented in this encounter Care Teams Guillotine Trimmer Relationship Specialty Start Date End Date Suzan Severino CNM PCP - General Obstetrics 05/25/23 documented as of this encounter
--- OUTSIDE RECORDS SUMMARY | 2024-12-11 12:15 | XMS_ITS | Encounter Summary ---
Author Organization [employer] ([place], [place], [place], [place]) Address [address] [place] [address] Care Team Providers Care Law Office Manager Name Role Phone Maycol Suzan BARBOZA Primary Care Provider Encounter Details Date Type Department Care Team (Late st Contact Info) Description 05/05/2021 Transcribed Document [facility] [place] Family Medicine [address] [place] [address] ProviderIsaías MD [address], [place] [id number] Social History Tobacco Use Types Packs/Day Years [...] Conversion Note - Isaías ProviderMD - 05/05/2021 10:31 AM FREELANCE DATA ENTRY ED Discharge Entered On: 05/05/2021 10:32 EST Performed On: 05/05/2021 10:31 EST by ALEX QUEVEDO RN Discharge Process Patient Disposition : Discharge Patient Education Completed : Yes Teaching Evaluation : Verbalizes understanding IV Discontinued : Yes Nursing Documentation Completed : Yes ALEX QUEVEDO RN - 05/05/2021 10:31 EST ED Discharge Discharge To : Home with ambulatory/outpatient follow-up Mode Of Departure : Ambulatory Accompanied By : Mother Discharge Instructions Reviewed With, Opportunity For Questions Given : Patient ALEX QUEVEDO, RN - 05/05/2021 10:31 EST Electronically signed by Alec, [facility] Conversion Union Carpenter Cerner at 09/11/2022 12:16 PM CDT documented in this encounter Plan of Treatment Not on file documented as of this encounter Visit Diagnoses Not on filedocumented in this encounter Care Teams Law Office Manager Relationship Specialty Start Date End Date Maycol, JABARI Mares PCP - General Obstetrics 05/25/23 documented as of this encounter
--- OUTSIDE RECORDS SUMMARY | 2024-12-11 12:15 | XMS_ITS | Encounter Summary ---
Author Organization [employer] ([place], [place], [place], [place]) Address [address] [place] [address] Care Team Providers Care Percussion Welding Machine Operator Name Role Phone Suzan Severino CNM Primary Care Provider [phone] Encounter Details Date Type Department Care Team (Late st Contact Info) Description 12/20/2021 Transcribed Document [facility] [place] [address] [place] [address] ProviderIsaías MD [address] [place] [address] Social History Tobacco Use Types [...] speak a language other than [place] at [facility]? No 07/24/2023 Do you want help with [...] Cerner Conversion Note - Historical Provider, - 12/20/2021 10:04 AM CDT Patient Education Materials Follows: FAQ - Patient COVID-19 testing Why do I need a COVID-19 test in the hospital? We are testing patients as part of an overall effort to ensure the safety of our patients, staff and providers, and to limit the spread of the novel coronavirus throughout our community. What happens if I test positive for COVID-19? Any scheduled elective procedure will be postponed and treatment for the coronavirus will follow the protocol that is currently in place. If you are admitted to the hospital, we will use droplet precautions for patients who test positive for COVID-19. If I'm a patient, should I wear a mask? Yes. When you are in your room alone, you may remove your mask. When anyone enters your room, you should put your mask back on. Will I be allowed to have visitors if I am admitted to the hospital with COVID-19? As part of the standard care for COVID-19 patients, visitors will not be allowed to protect them from potential exposure to the novel coronavirus. If you have a health care support person with you during a pending test and the test comes back positive, your visitor will be asked to leave and follow up with their primary care provider. Public health may reach out to them to complete contact tracing. Will my status as COVID-19 positive be reported? Because COVID-19 is a public health threat, all positive cases are reported through the local health department and the [place] Department for Public Health. Those organizations are responsible for monitoring public health threats. What is contact tracing? The public health departments at the state and local levels use contact tracing to prevent the spread of infectious disease. They will work to identify people who have COVID-19 and their contacts who may have been exposed. What does contact tracing involve? Typically, a contact tracer will interview patients with COVID-19 to identify everyone with whom they have had close contact during the time they may have been infectious and then notify those contacts of potential exposure and refer them for testing. They may monitor the contacts for symptoms of COVID-19 and connect the contacts with services they may need during a recommended self-quarantine period. The patient's name is not revealed to anyone during the contact tracing interviews, even if a contact asks. Who would be considered a close contact ? According to the CDC, a close contact is defined as someone who was within 6 feet of an infected person for at least 15 minutes, starting from 48 hours before the person began feeling sick until the time the patient was isolated. What can a close contact expect during this process? A contact tracer from the health department will contact that person to inform them they have been exposed to COVID-19. If that happens, the contact should self-quarantine for 14 days, starting from the last date of possible exposure, monitor their health, wear a face covering and maintain social distancing - at least 6 feet from others at all times. Should a close contact seek medical care? Close contacts should take their temperature twice a day, watch for COVID-19 symptoms and notify the health department if they develop symptoms. They should also notify people with whom they have had recent close contact if they become ill. They should seek medical care if symptoms worsen or become severe, including trouble breathing, persistent pain or pressure in the chest, confusion, inability to wait or stay awake, or bluish lips or face. Steps to Help Prevent the Spread of COVID-19 if You Are Sick In all cases, follow the guidance of your health care provider and local health department. Your local health department determines the length of time for quarantine and will notify you with detailed information. Monitor your symptoms. Common symptoms of COVID-19 include fever, fatigue, diarrhea/vomiting, loss of taste and smell, and cough. Trouble breathing is a more serious symptom that means you should get medical attention. If you develop emergency warning signs for COVID-19 get medical attention immediately. Emergency warning signs include*: ??? Trouble breathing ??? Persistent pain or pressure in the chest ??? New confusion or inability to arouse ??? Bluish lips or face *This list is not all inclusive. Please consult your medical provider for any other symptoms that are severe or concerning. Call 911 if you have a medical emergency. If you have a medical emergency and need to call 911, notify the wrapper operator that you have, or think you might have, COVID-19. If possible, put on a facemask before medical help arrives. Stay home except to get medical care. ??? Stay home: Most people with COVID-19 have mild illness and can recover at home without medical care. Do not leave your home, except to get medical care. Do not visit public areas. ??? Stay in touch with your doctor. Call before you get medical care. Be sure to get care if you have trouble breathing, or have any other emergency warning signs, or if you think it is an emergency. Separate yourself from other people in your home; this is known as home isolation. ??? Stay away from others: As much as possible, stay away from others. You should stay in a specific sick room if possible, and away from other people in your home. Use a separate bathroom, if available. Call ahead before visiting your doctor. ??? Call ahead: Many medical visits for routine care are being postponed or done by phone or telemedicine. If you have a medical appointment that cannot be postponed, call your doctor's office, and tell them you have or may have COVID-19. This will help the office protect themselves and other patients. If you are sick, wear a facemask in the following situations, if available. ??? If you are sick: You should wear a facemask, if available, when you are around other people (including before you enter a health care provider's office). ??? If you are caring for others: If the person who is sick is not able to wear a facemask (for example, because it causes trouble breathing), then as their caregiver, you should wear a facemask when in the same room with them. Visitors, other than caregivers, are not recommended. Cover your coughs and sneezes. ??? Cover: Cover your mouth and nose with a tissue when you cough or sneeze. ??? Dispose: Throw used tissues into a lined trash can. ??? Wash hands: Immediately wash your hands with soap and water for at least 20 seconds. If soap and water are not available, clean your hands with an alcohol-based hand slip operator that contains at least 60% alcohol. Clean your hands often. ??? Wash hands: Wash your hands often with soap and water for at least 20 seconds when visibly dirty. This is especially important after blowing your nose, coughing or sneezing, and going to the bathroom, and before eating or preparing food. ??? Hand slip operator: Use an alcohol-based hand slip operator with at least 60% alcohol, covering all surfaces of your hands and rubbing them together until they feel dry. ??? Avoid touching: Avoid touching your eyes, nose and mouth with unwashed hands. Avoid sharing personal household items. ??? Do not share: Do not share dishes, drinking glasses, cups, eating utensils, towels or bedding with other people in your home. ??? Wash thoroughly after use: After using these items, wash them thoroughly with soap and water or put them in the imaging administrator. Clean all high-touch surfaces every day. Clean high-touch surfaces in your isolation area ( sick room and bathroom) every day; let a caregiver clean and disinfect high-touch surfaces in other areas of the home. ??? Clean and disinfect: Routinely clean high-touch surfaces in your sick room and bathroom. Let someone else clean and disinfect surfaces in common areas, but not your bedroom and bathroom. ? If a caregiver or other person needs to clean and disinfect a sick person's bedroom or bathroom, they should do so on an as-needed basis. The caregiver/other person should wear a mask and wait as long as possible after the sick person has used the bathroom. ? High-touch surfaces include phones, remote controls, counters, tabletops, doorknobs, bathroom fixtures, toilets, keyboards, tablets and bedside tables. ??? Clean and disinfect areas that may have blood, stool, or body fluids on them. ??? Household playground monitor and disinfectants: Clean the area or item with soap and water or another detergent if it is dirty. Then, use a household disinfectant. ?? Be sure to follow the instructions on the label to ensure safe and effective use of the product. Many products recommend keeping the surface wet for several minutes to ensure germs are killed. Many also recommend precautions such as wearing gloves and making sure you have good ventilation during use of the product. ?? Most EPA-registered household disinfectants should be effective. A full list of disinfectants can be found here: https://www.epa.gov/pesticide-registration/kmvi-t-zivnxotgoycag-vtf-apiinjw-qr rs-cov-2 Obstetrics and Gynecology Care After Delivery This sheet gives you information about how to care for yourself from the time you deliver your baby to up to 6?12 weeks after delivery ( period). Your health care provider may also give you more specific instructions. If you have problems or questions, contact your health care provider. Follow these instructions at home: Medicines ??? Take mqhc-cde-hrwqdmy and prescription medicines only as told by your health care provider. ??? If you were prescribed an antibiotic medicine, take it as told by your health care provider. Do not stop taking the antibiotic even if you start to feel better. ??? Ask your health care provider if the medicine prescribed to you: ? Requires you to avoid driving or using heavy machinery. ? Can cause constipation. You may need to take actions to prevent or treat constipation, such as: ? Drink enough fluid to keep your urine pale yellow. ? Take pmfi-imw-svdrakt or prescription medicines. ? Eat foods that are high in fiber, such as beans, whole grains, and fresh fruits and vegetables. ? Limit foods that are high in fat and processed sugars, such as fried or sweet foods. Activity ??? Gradually return to your normal activities as told by your health care provider. ??? Avoid activities that take a lot of effort and energy (are strenuous) until approved by your health care provider. Walking at a slow to moderate pace is usually safe. Ask your health care provider what activities are safe for you. ? Do not lift anything that is heavier than your baby or 10 lb (4.5 kg) as told by your health care provider. ? Do not vacuum, climb stairs, or drive a car for as long as told by your health care provider. ??? If possible, have someone help you at home until you are able to do your usual activities yourself. ??? Rest as much as possible. Try to rest or take naps while your baby is sleeping. Vaginal bleeding ??? It is normal to have vaginal bleeding (lochia) after delivery. Wear a sanitary pad to absorb vaginal bleeding and discharge. ? During the first week after delivery, the amount and appearance of lochia is often similar to a menstrual period. ? Over the next few weeks, it will gradually decrease to a dry, yellow-brown discharge. ? For most women, lochia stops completely by 4?6 weeks after delivery. Vaginal bleeding can vary from woman to woman. ??? Change your sanitary pads frequently. Watch for any changes in your flow, such as: ? A sudden increase in volume. ? A change in color. ? Large blood clots. ??? If you pass a blood clot, save it and call your health care provider to discuss. Do not flush blood clots down the toilet before you get instructions from your health care provider. ??? Do not use tampons or douches until your health care provider says this is safe. ??? If you are not , your period should return 6?8 weeks after delivery. If you are , your period may return anytime between 8 weeks after delivery and the time that you stop . Perineal care ??? If your ( section) was unplanned, and you were allowed to labor and push before delivery, you may have pain, swelling, and discomfort of the tissue between your vaginal opening and your anus (perineum). You may also have an incision in the tissue (episiotomy) or the tissue may have torn during delivery. Follow these instructions as told by your health care provider: ? Keep your perineum clean and dry as told by your health care provider. Use medicated pads and pain-relieving sprays and creams as directed. ? If you have an episiotomy or vaginal tear, check the area every day for signs of infection. Check for: ? Redness, swelling, or pain. ? Fluid or blood. ? Warmth. ? Pus or a bad smell. ? You may be given a squirt bottle to use instead of wiping to clean the perineum area after you go to the bathroom. As you start healing, you may use the squirt bottle before wiping yourself. Make sure to wipe gently. ? To relieve pain caused by an episiotomy, vaginal tear, or hemorrhoids, try taking a warm sitz bath 2?3 times a day. A sitz bath is a warm water bath that is taken while you are sitting down. The water should only come up to your hips and should cover your buttocks. Breast care ??? Within the first few days after delivery, your breasts may feel heavy, full, and uncomfortable (breast engorgement). You may also have milk leaking from your breasts. Your health care provider can suggest ways to help relieve breast discomfort. Breast engorgement should go away within a few days. ??? If you are : ? Wear a bra that supports your breasts and fits you well. ? Keep your nipples clean and dry. Apply creams and ointments as told by your health care provider. ? You may need to use breast pads to absorb milk leakage. ? You may have uterine contractions every time you breastfeed for several weeks after delivery. Uterine contractions help your uterus return to its normal size. ? If you have any problems with , work with your health care provider or a sustainability consultant. ??? If you are not : ? Avoid touching your breasts as this can make your breasts produce more milk. ? Wear a well-fitting bra and use cold packs to help with swelling. ? Do not squeeze out (express) milk. This causes you to make more milk. Intimacy and sexuality ??? Ask your health care provider when you can engage in sexual activity. This may depend on your: ? Risk of infection. ? Healing rate. ? Comfort and desire to engage in sexual activity. ??? You are able to get after delivery, even if you have not had your period. If desired, talk with your health care provider about methods of family planning or control (contraception). Lifestyle ??? Do not use any products that contain nicotine or tobacco, such as cigarettes, e-cigarettes, and chewing tobacco. If you need help quitting, ask your health care provider. ??? Do not drink alcohol, especially if you are . Eating and drinking ??? Drink enough fluid to keep your urine pale yellow. ??? Eat high-fiber foods every day. These may help prevent or relieve constipation. High-fiber foods include: ? Whole grain cereals and breads. ? Brown rice. ? Beans. ? Fresh fruits and vegetables. ??? Take your vitamins until your checkup or until your health care provider tells you it is okay to stop. General instructions ??? Keep all follow-up visits for you and your baby as told by your health care provider. Most women visit their health care provider for a checkup within the first 3?6 weeks after delivery. Contact a health care provider if you: ??? Feel unable to cope with the changes that a new baby brings to your life, and these feelings do not go away. ??? Feel unusually sad or worried. ??? Have breasts that are painful, hard, or turn red. ??? Have a fever. ??? Have trouble holding urine or keeping urine from leaking. ??? Have little or no interest in activities you used to enjoy. ??? Have not breastfed at all and you have not had a menstrual period for 12 weeks after delivery. ??? Have stopped and you have not had a menstrual period for 12 weeks after you stopped . ??? Have questions about caring for yourself or your baby. ??? Pass a blood clot from your vagina. Get help right away if you: ??? Have chest pain. ??? Have difficulty breathing. ??? Have sudden, severe leg pain. ??? Have severe pain or cramping in your abdomen. ??? Bleed from your vagina so much that you fill more than one sanitary pad in one hour. Bleeding should not be heavier than your heaviest period. ??? Develop a severe headache. ??? Faint. ??? Have blurred vision or spots in your vision. ??? Have a bad-smelling vaginal discharge. ??? Have thoughts about hurting yourself or your baby. If you ever feel like you may hurt yourself or others, or have thoughts about taking your own life, get help right away. You can go to your nearest emergency department or call: ??? Your local emergency services (911 in the [place] ??? A suicide crisis helpline, such as the National Suicide Prevention Lifeline at . This is open 24 hours a day. Summary ??? The period of time from when you deliver your baby to up to 6?12 weeks after delivery is called the period. ??? Gradually return to your normal activities as told by your health care provider. ??? Keep all follow-up visits for you and your baby as told by your health care provider. This information is not intended to replace advice given to you by your health care provider. Make sure you discuss any questions you have with your health care provider. Document Revised: 12/31/2018 Document Reviewed: 12/31/2018 [employer] Patient Education ? 2020 [employer]. documented in this encounter Plan of Treatment Not on file documented as of this encounter Visit Diagnoses Not on filedocumented in this encounter Care Teams Percussion Welding Machine Operator Relationship Specialty Start Date End Date Suzan Severino CNM PCP - General Obstetrics 05/25/23 documented as of this encounter
--- OUTSIDE RECORDS SUMMARY | 2024-12-11 12:15 | XMS_ITS | Encounter Summary ---
Author Organization [employer] ([place], [place], [place], [place]) Address [address] [place] [address] Care Team Providers Care Whiteprinting Machine Operator Name Role Phone Suzan Severino CNM Primary Care Provider [phone]- [phone] Encounter Details Date Type Department Care Team (Late st Contact Info) Description 12/18/2021 Transcribed Document [facility] Family Medicine [address] [place] [address] ProviderIsaías MD [address] [place] [address] Social History Tobacco Use Types [...] Do you speak a language other than [place] at [facility]? No 07/24/2023 Do you [...] Conversion Note - Historical Provider, - 12/18/2021 10:15 AM CDT UM Authorization Entered On: 12/18/2021 10:16 EDT Performed On: 12/18/2021 10:15 EDT by Aly Alcaraz, burglar alarm installer Primary Insurance Authorization Authorization and Policy Numbers : Insurance 1 Health Plan: [facility] Policy Number: [id number] Authorization Number: Insurance Primary Name : [facility] Authorization Status-Primary : Admit approved Reference Number-Primary : Reference Number: [id number] Authorization Number-Primary : Authorization Number: [id number] Number of Days Authorized-Primary : 3 Day(s) Authorized Service Begin Date-Primary : 12/17/2021 EDT Authorized Service End Date-Primary : 12/20/2021 EDT Authorization Comments-Primary : Submitted Notification of IP Hospital Admission and Faxed/ Attached Delivery Clinicals to [facility] with noted Authorization # above. Please notify of DC date or any additional days needed. Historical Authorization Comments-Primary : No Authorization Comments Found Aly Alcaraz, burglar alarm installer - 12/18/2021 10:15 EDT documented in this encounter Plan of Treatment Not on file documented as of this encounter Visit Diagnoses Not on filedocumented in this encounter Care Teams Whiteprinting Machine Operator Relationship Specialty Start Date End Date Suzan Severino CNM PCP - General Obstetrics 05/25/23 documented as of this encounter
--- OUTSIDE RECORDS SUMMARY | 2024-12-11 12:15 | XMS_ITS | Encounter Summary ---
Author Organization [employer] ([place], [place], [place], [place]) Address [address] [place] [address] Care Team Providers Care Business Analytics Specialist Name Role Phone Suzan Severino CNM Primary Care Provider Encounter Details Date Type Department Care Team (Late st Contact Info) Description 05/05/2021 Transcribed Document [facility] [place] [address] [place] [address] ProviderIsaías MD [address], [place] [id number] Social History Tobacco Use Types Packs/Day Years [...] Conversion Note - Historical ProviderMD - 05/05/2021 7:54 AM NUCLEAR PLANT EQUIPMENT OPERATOR documented in this encounter Plan of Treatment Not on file documented as of this encounter Visit Diagnoses Not on filedocumented in this encounter Care Teams Business Analytics Specialist Relationship Specialty Start Date End Date Suzan Severino CNM PCP - General Obstetrics 05/25/23 documented as of this encounter
--- OUTSIDE RECORDS SUMMARY | 2024-12-11 12:15 | XMS_ITS | Encounter Summary ---
Author Organization [employer] ([place], [place], [place], [place]) Address [address] [place] [address] Care Team Providers Care Attendant Honor Bar Name Role Phone Suzan Severino CNM Primary Care Provider [phone]- [phone] Encounter Details Date Type Department Care Team (Late st Contact Info) Description 11/29/2021 Transcribed Document [facility] [place] [address] [place] [address] ProviderIsaías MD [address] [place] [address] Social History Tobacco Use Types [...] Do you speak a language other than Kazakh at [facility]? No 07/24/2023 Do you want help [...] Historical Provider, - 11/29/2021 1:09 AM CDT Stroke/Warfarin Instructions Entered On: 11/29/2021 1:09 EDT Performed On: 11/29/2021 1:09 EDT by Shilpa Roberto RN Stroke/Warfarin Instructions Stroke/TIA Discharge Ins : N/A Warfarin Discharge Ins : N/A Shilpa Roberto RN - 11/29/2021 1:09 EDT Electronically signed by [facility] Conversion Skip Tracer Cerner at 09/11/2022 12:40 PM CDT documented in this encounter Plan of Treatment Not on file documented as of this encounter Visit Diagnoses Not on filedocumented in this encounter Care Teams Attendant Honor Bar Relationship Specialty Start Date End Date Severino, JABARI Mares PCP - General Obstetrics 05/25/23 documented as of this encounter
--- OUTSIDE RECORDS SUMMARY | 2024-12-11 12:15 | XMS_ITS | Clinical Summary ---
Author Organization [employer] ([place], [place], [place], [place]) Address [address] [place] [address] Care Team Providers Care Kiln Furniture Saw Tender Name Role Phone SeverinoSuzan JABARI Primary Care Provider Allergies Active Allergy Reactions Criticality Noted Date Comments Penicillin Rash,Itching Low 05/25/2023 Medications vitamin w/calcium-iron- folate ( PLUS) 27 mg iron- 1 mg Tab Take 1 tablet by mouth daily. Active ergocalciferol (Vitamin D2) 1,250 mcg (50,000 unit) capsule Take 1 capsule (50,000 Units total) by mouth once a week. Active Active Problems Problem Noted Date Diagnosed Date ROM (rupture of membranes), premature 07/25/2023 28 weeks gestation of 07/21/2023 Second trimester bleeding 06/26/2023 Vaginal bleeding 06/24/2023 Vaginal bleeding in , second trimester 06/23/2023 Nausea and vomiting during p regnancy prior to 22 weeks gestation 05/25/2023 Social History Tobacco Use Types Packs/Day Years Used Date Smoking Tobacco: Never Smokeless Tobacco: Former Tobacco Cessation:Counseling Given: No Comments:Vape Alcohol Use Standard Drinks/Week Comments Not Currently 0 (1 standard drink = 0.6 oz pur e alcohol) PRAPARE - Transportation Answer Date Re corded [...] Do you speak a language other than [place]ayan at [facility]? No 07/24/2023 Do you want help [...] used [place] legal drugs? Never 07/24/2023 Comments No Sex and Gender Information Value Date Recorded Sex Assigned at Female 11/21/2021 6:51 PM CDT Legal Sex Female 6:51 PM CDT Gender Identity Female 11/21/2021 6:51 PM CDT Sexual Orientation Not on file Last Filed Vital Signs Vital Sign Reading Time Taken Comments Blood Pressure 92/50 07/27/2023 7:26 AM EST Pulse 72 07/27/2023 7:26 AM EST Temperature 36.6 C (97.8 F) 07/27/2023 7:26 AM EST Respiratory Rate 14 07/27/2023 7:26 AM EST Oxygen Saturation 99% 07/22/2023 1:00 PM EST Inhaled Oxygen Concentration - - Weight 56.2 kg (124 lb) 07/21/2023 1:52 AM EST Height 157.5 cm (5' 2 ) 07/21/2023 1:52 AM EST Body Mass Index 22.68 07/21/2023 1:52 AM EST Plan of Treatment Health Maintenance Due Date Last Done Comments Depression Screening (12+) 2014 Meningococcal B Vaccine (1 o f 2 - Standard) 2018 DTAP/TDAP/TD VACCINES (1 - Tdap) 2021 Pap Smear 08/20/2023 COVID-19 VACCINE (1 - 2023-2 5 season) 2024 Chlamydia and Gonorrhea Screening 04/25/2024 023 Tobacco Cessation Counseling and Screening (12+) 07/21/2024 07/21/2023 Influenza Vaccine (#1) 2025 HIV Screening Completed 04/25/2023 Hepatitis C Screening Completed 04/25/2023 Pneumococcal Vaccine: 0-49 Years Aged Out No longer eligible based on patient's age to complete this topic Procedures Procedure Name Priority Date/Time Associated Diagnosis Comments HCV ANTIBODY CASCADE(PCR/ADRY) Routine 04/25/2023 HIV-1 ANTIGEN WITH HIV-1/2 ANTIBODY Routine 04/25/2023 CT, NG, TRICH VAG BY KD AP Routine 04/25/2023 from Last 3 Months or Most Recently Relevant to Health Maintenance Results * HCV Antibody [place](PCR/Adry) (04/25/2023) HCV Ab NR us Historical Provider LAB BLOOD ORDERABLES Shyann l Result * CT, NG, TRICH VAG BY KD (04/25/2023) Chlamydia by KD neg Gonococcus by KD neg Historical Provider MD PATHOLOGY/CYTOLOGY ORDERA BLES Final Result * HIV-1 Antigen with HIV-1/2 Antibody (04/25/2023) HIV Screen 4th Generation wRfx NR Blood Historical Provider MD LAB BLOOD ORDERABLES Shyann l Result from Last 3 Months or Most Recently Relevant to Health Maintenance Insurance [facility] Advance Directives For more information, please contact: [phone] * Full Code (Latest Code Status on File) Date Activated Date Inactivated Comments 07/25/2023 6:48 PM 07/27/2023 1:32 PM * Full Code Date Activated Date Inactivated Comments 07/21/2023 6:38 AM 07/25/2023 6:48 PM * Full Code Date Activated Date Inactivated Comments 06/26/2023 5:50 PM 06/29/2023 1:54 PM * Full Code Date Activated Date Inactivated Comments 06/23/2023 10:37 PM 06/26/2023 1:01 PM Care Teams Kiln Furniture Saw Tender Relationship Specialty Start Date End Date Suzan Severino CNM PCP - General Obstetrics 05/25/23
--- OUTSIDE RECORDS SUMMARY | 2024-12-11 12:15 | XMS_ITS | Clinical Summary ---
Author Organization [facility] Address [address] [place] [address] Care Team Providers Care Flute Grinder Name Role Phone Pcp, No Primary Care Provider [phone] Source Comments This information has been disclosed to you from confidential records protectedfrom disclosure by state law. You shall make no further disclosure of thisinformation without the specific, written, and informed release of theindividual to whom it pertains, or as otherwise permitted by law. A generalauthorization for the release of medical or other information is not sufficientfor the purposes of therelease of HIV test results or diagnoses. [id number] Allergies Active Allergy Reactions Criticality Noted Date Comments Penicillins 11/24/2023 Social History Tobacco Use Types Packs/Day Years Used Date Smoking Tobacco: Never Assessed Comments Unknown Sex and Gender Information Value Date Recorded Sex Assigned at Not on file Legal Sex Female 1:19 PM EDT Gender Identity Not on file Sexual Orientation Not on file Last Filed Vital Signs Vital Sign Reading Time Taken Comments Blood Pressure 106/81 11/24/2023 9:00 PM EDT Pulse 85 11/24/2023 9:00 PM EDT Temperature 36.4 C (97.6 F) 11/24/2023 1:25 PM EDT Respiratory Rate 19 11/24/2023 9:00 PM EDT Oxygen Saturation 100% 11/24/2023 9:00 PM EDT Inhaled Oxygen Concentration 100% 11/24/2023 9 :00 PM EDT Weight - - Height - - Body Mass Index - - Plan of Treatment Health Maintenance Due Date Last Done Comments Immunization: HPV (1 - 3-dos e series) 2017 Alcohol Misuse Screening 2020 Depression Screening 2020 HIV Screening 2020 Immunization: DTaP/Tdap/Td ( 1 - Tdap) 2021 Immunization: Hepatitis B (1 of 3 - 19+ 3-dose series) 2021 Cervical Cancer Screening/Pa p Smear (MyChart) 08/20/2023 Immunization: COVID-19 ( - 2023- season) 2024 Immunization: Influenza (MyC bowen) (#1) 2025 Hepatitis C Screening (MyChart) Completed Immunization: Meningococcal ACWY Aged Out No longer eligible based on patient's age to complete this topic Immunization: Pneumococcal Aged Out N o longer eligible based on patient's age to complete this topic Procedures Procedure Name Priority Date/Time Associated Diagnosis Comments ED HCV AB REFLEX TO HCV QUANT Routine 11/24/2023 2:18 PM EDT from Last 3 Months or Most Recently Relevant to Health Maintenance Results * ED HCV Ab Reflex To HCV Quant (11/24/2023 2:18 PM EDT) HCV Ab Nonreactive Nonreactive 11/24/2023 3:25 PM EDT HEALTH LAB Comment:Health Department no tified in accordance with reportable infectious disease guidelines. HCVAB Number 0.07 0.00 - 0.79 S/CO 11/24/2023 3:25 PM EDT [facility] Serum 11/24/2023 2:18 PM EDT 11/24/2023 2:26 PM EDT Luis Odell MD LAB BLOOD ORDERABLES Final Res ult [facility] [address] [place] [address], [facility] from Last 3 Months or Most Recently Relevant to Health Maintenance Insurance [facility] Care Teams Flute Grinder Relationship Specialty Start Date End Date Pcp, No No Address PCP - General 11/24/23
--- OUTSIDE RECORDS SUMMARY | 2024-12-11 12:15 | XMS_ITS | Encounter Summary ---
Author Organization [employer] ([place], [place], [place], [place]) Address [address] [place] [address] Care Team Providers Care Lamination Builder Name Role Phone Suzan Severino CNM Primary Care Provider [phone]- [phone] Encounter Details Date Type Department Care Team (Late st Contact Info) Description 12/18/2021 Transcribed Document [facility] [place] [address] [place] [address] ProviderIsaías MD [address] [place] [address] Social History Tobacco Use Types [...] Do you speak a language other than [place]yrgyz at [facility]? No 07/24/2023 Do you want help [...] Conversion Note - Historical Provider, - 12/18/2021 10:04 AM CDT UM Authorization Entered On: 12/18/2021 10:04 EDT Performed On: 12/18/2021 10:04 EDT by Aly Alcaraz, parts professional Primary Insurance Authorization Authorization and Policy Numbers : Insurance 1 Health Plan: [facility] Policy Number: [id number] Authorization Number: Insurance Primary Name : [facility] Authorization Status-Primary : Awaiting callback Authorized Service Begin Date-Primary : 12/17/2021 EDT Historical Authorization Comments-Primary : No Authorization Comments Found Aly Alcaraz, parts professional - 12/18/2021 10:04 EDT documented in this encounter Plan of Treatment Not on file documented as of this encounter Visit Diagnoses Not on filedocumented in this encounter Care Teams Lamination Builder Relationship Specialty Start Date End Date Severino, JABARI Mares PCP - General Obstetrics 05/25/23 documented as of this encounter
--- OUTSIDE RECORDS SUMMARY | 2024-12-11 12:15 | XMS_ITS | Encounter Summary ---
Author Organization [employer] ([place], [place], [place], [place]) Address [address] [place] [address] Care Team Providers Care Data Security Administrator Name Role Phone Suzan Severino CNM Primary Care Provider [phone]- [phone] Encounter Details Date Type Department Care Team (Late st Contact Info) Description 12/18/2021 Transcribed Document [facility] [place] [address] [place] [address] ProviderIsaías MD [address] [place] [address] Social History Tobacco Use Types [...] Do you speak a language other than Angolan at [facility]? No 07/24/2023 [...] Conversion Note - Historical Provider, - 12/18/2021 10:14 AM CDT UM Authorization Entered On: 12/18/2021 10:14 EDT Performed On: 12/18/2021 10:14 EDT by Aly Alcaraz, interlocker Primary Insurance Authorization Authorization and Policy Numbers : Insurance 1 Health Plan: [facility] Policy Number: [id number] Authorization Number: Insurance Primary Name : [facility] Authorization Status-Primary : Admit approved Reference Number-Primary : Print Download & Print The services detailed below have been approved Reference Number: [id number] Authorization Number-Primary : Authorization Number: [id number] Number of Days Authorized-Primary : 3 Day(s) Authorized Service Begin Date-Primary : 12/17/2021 EDT Authorized Service End Date-Primary : 12/20/2021 EDT Historical Authorization Comments-Primary : No Authorization Comments Found Aly Alcaraz, interlocker - 12/18/2021 10:14 EDT documented in this encounter Plan of Treatment Not on file documented as of this encounter Visit Diagnoses Not on filedocumented in this encounter Care Teams Data Security Administrator Relationship Specialty Start Date End Date Maycol, JABARI Mares PCP - General Obstetrics 05/25/23 documented as of this encounter
--- OUTSIDE RECORDS SUMMARY | 2024-12-11 12:15 | XMS_ITS | Encounter Summary ---
Author Organization [employer] ([place], [place], [place], [place]) Address [address] [place] [address] Care Team Providers Care Housing Management Officer Name Role Phone Suzan Severino CNM Primary Care Provider [phone]- [phone] Encounter Details Date Type Department Care Team (Late st Contact Info) Description 12/20/2021 Transcribed Document [facility] [place] [address] [place] [address] ProviderIsaías MD [address] [place] [address] Social History Tobacco Use Types [...] Do you speak a language other than Nauruan at [facility]? No 07/24/2023 Do you [...] Conversion Note - Historical Provider, - 12/20/2021 1:07 PM CDT Nursing Discharge Summary Entered On: 12/20/2021 13:08 EDT Performed On: 12/20/2021 13:07 EDT by LOREN WARREN RN Discharge Documentation Discharge Date/Time : 12/20/2021 13:00 EDT Patient Disposition, General : Discharge Discharge To : Home with ambulatory/outpatient follow-up Mode Of Departure, General Discharge : Private vehicle, Wheelchair Accompanied By, Discharge : Significant other IV Discontinued : Yes Personal Belongings With Patient : No personal belongings to return Pt's Own Supply of Medications Returned : No patient supply of medications to return Prescriptions Given to Patient : Electronically sent Medications Given to Patient : No Discharge Instructions Reviewed With, Opportunity For Questions Given : Patient Patient Education Completed : Yes Teaching Method : Printed materials Teaching Evaluation : Verbalizes understanding LOREN WARREN RN - 12/20/2021 13:07 EDT Electronically signed by [facility], [facility] Conversion Forestry Aid Cerner at 09/11/2022 12:22 PM CDT documented in this encounter Plan of Treatment Not on file documented as of this encounter Visit Diagnoses Not on filedocumented in this encounter Care Teams Housing Management Officer Relationship Specialty Start Date End Date Maycol, JABARI Mares PCP - General Obstetrics 05/25/23 documented as of this encounter
--- OUTSIDE RECORDS SUMMARY | 2024-12-11 12:15 | XMS_ITS | Encounter Summary ---
Author Organization [employer] ([place], [place], [place], [place]) Address [address] [place] [address] Care Team Providers Care Electronic Publications Specialist Name Role Phone Maycol Suzan BARBOZA Primary Care Provider Encounter Details Date Type Department Care Team (Late st Contact Info) Description 05/05/2021 Transcribed Document [facility] [place] [address] [place] [address] ProviderIsaías MD [address], [place] [address] Social History Tobacco Use Types Packs/Day Years [...] - Isaías ProviderMD - 05/05/2021 7:34 AM VENEER TAPER ED Assessment Entered On: 05/05/2021 7:47 EST Performed On: 05/05/2021 7:46 EST by Tamera Birmingham RN ED Quick Look Assessment Level of Consciousness : Alert, Awake Affect/Behavior : Appropriate, Calm, Cooperative Orientation : Oriented x 4 Tamera Birmingham RN - 05/05/2021 7:46 EST ED General-Functional Assess Communication Barrier : None Primary Language : Croatian Any Spiritual/Cultural Needs or Requests : No Currently in Unsafe Situation : No Tamera Birmingham RN - 05/05/2021 7:46 EST Social Habits Smoking Status : Former smoker, quit more than 30 days ago Smokeless Tobacco Status : Never Desires Tobacco Cessation Calc : 0 Tamera Birmingham RN - 05/05/2021 7:46 EST Social History (As Of: 05/05/2021 07:47:13 EST) Cardiovascular ASMT, ED Cardiovascular Assessment WDL : WDL Tamera Birmingham RN - 05/05/2021 7:46 EST Respiratory Respiratory Assessment WDL : WDL Tamera Birmingham RN - 05/05/2021 7:46 EST Genitourinary Assessment, ED Genitourinary Assessment WDL : WD with exceptions (Comment: pt currently 8 weeks , . Reports lower abdominal pain this a.m. and increase in nausea. Currently on abx for UTI. [Tamera Birmingham RN - 05/05/2021 7:46 EST] ) Tamera Birmingham RN - 05/05/2021 7:46 EST Neurologic ASMT, ED Neurologic Assessment WDL : WD Tamera Birmingham RN - 05/05/2021 7:46 EST Electronically signed by [facility], [facility] Conversion Electric Mule Driver Cerner at 09/11/2022 12:23 PM CDT documented in this encounter Plan of Treatment Not on file documented as of this encounter Visit Diagnoses Not on filedocumented in this encounter Care Teams Electronic Publications Specialist Relationship Specialty Start Date End Date Suzan Severino CNM PCP - General Obstetrics 05/25/23 documented as of this encounter
--- OUTSIDE RECORDS SUMMARY | 2024-12-11 12:15 | XMS_ITS | Encounter Summary ---
Author Organization [employer] ([place], [place], [place], [place]) Address [address] [place] [address] Care Team Providers Care Core Inserter Name Role Phone Suzan Severino CNM Primary Care Provider [phone]- [phone] Encounter Details Date Type Department Care Team (Late st Contact Info) Description 12/18/2021 Transcribed Document [facility] [place] [address] [place] [address] ProviderIsaías MD [address] [place] [address] Social History Tobacco Use Types [...] Do you speak a language other than [place] at [facility]? No 07/24/2023 Do you want help [...] Conversion Note - Historical Provider, - 12/18/2021 5:05 PM CDT On Going Discharge Planning Entered On: 12/18/2021 17:06 EDT Performed On: 12/18/2021 17:05 EDT by WATSON ESPINOZA, Orchestra Musician Care Management Progress Note Discharge Arrangements : Patient Post-Acute Information Patient Name: KANDACE GONZALEZ Gender: Female : 02 Age: 21 Years No Post-Acute Placement(s) Listed No Post-Acute Service(s) Listed No [place] Referral(s) Listed Discharge Options Discussed with Patient : Discharge transportation, DME, Outpatient services, Substance abuse/mental health Barriers to Discharge Identified : Clinical Condition of Patient Barriers to Discharge Unresolved : Clinical Condition of Patient Patient Discharge Goal : Home Patient Offered Choice/Affiliations Explained : No Designation of Choice Signed : No List/Info Provided Pt/Fam/Support Person : Other: NA Were Referrals Sent to Post Acute Providers : No [facility] Quality Web Info Shared w Pt/Fam : No Does the Patient have a Floor to SNF Benefit? : No Is the Patient Meeting Medical Necessity : Yes Physician Agreeable to Move Forward with D/C Plan? : Yes Did you Attend Multidisciplinary Rounds? : No WATSON ESPINOZA Orchestra Musician - 12/18/2021 17:05 EDT Narrative Progress Note Narrative Progress Note : Rec email from CPS/DCBS. Report did NOT meet criteria for investigation, no further action needed. SW did call [facility] and made referral to their program. Informed pt of all the above. SW will cont to follow. WATSON HWANG Orchestra Musician - 12/18/2021 17:05 EDT documented in this encounter Plan of Treatment Not on file documented as of this encounter Visit Diagnoses Not on filedocumented in this encounter Care Teams Core Inserter Relationship Specialty Start Date End Date Suzan Severino CNM PCP - General Obstetrics 05/25/23 documented as of this encounter
--- OUTSIDE RECORDS SUMMARY | 2024-12-11 12:15 | XMS_ITS | Encounter Summary ---
Author Organization [facility] ([place], [place], [place], [place]) Address [address] [place] [address] Care Team Providers Care Land Management Forester Name Role Phone Suzan Severino CNM Primary Care Provider [phone] Encounter Details Date Type Department Care Team (Late st Contact Info) Description 12/18/2021 Transcribed Document [facility] [place] [address] [place] [address] ProviderIsaías MD [address] [place] [address] Social History Tobacco Use Types [...] Do you speak a language other than [place] Leonean at [facility]? No 07/24/2023 Do you want [...] Conversion Note - Historical Provider, - 12/18/2021 2:19 PM CDT Initial Discharge Planning Entered On: 12/18/2021 14:56 EDT Performed On: 12/18/2021 14:19 EDT by WATSON ESPINOZA, Laundry Machine Mechanic Initial Assessment I Previously Documented Living Environment : No qualifying data available. Living Situation : Home Patient Lives With : Spouse Is the Patient a Caregiver at Home? : No Employment/Vocation : Unemployed Emergency Contact #1 : Jaya urban Emergency Contact #1 Emergency Contact #1 Relationship : Spouse/FOB Emergency Contact #2 : Bernie Rendon Emergency Contact #2 Emergency Contact #2 Relationship : grandmother Identified Medical Decision Maker : self Enter Doctors Name : Dr Naveen Selby Does Patient have PCP Listed? : Yes Patient's Home Caregiver Name/Relationship : Jaya, spouse/FOB Patient's Home Caregiver Medical Durable Power of Systems Coordinator Name : NA Legal Guardian : No Is Guardianship Needed : No WATSON ESPINOZA Social Worker - 12/18/2021 14:19 EDT Initial Assessment II Sensory and Motor Deficits : None Current Home Treatments and Equipment : None Services and Community Resources : [facility] ([facility]) Does the Patient have a Floor to SNF Benefit? : No WATSON ESPINOZA Social Worker - 12/18/2021 14:19 EDT Discharge Needs I Anticipated Discharge Date : 12/20/2021 EDT Anticipated Discharge To, CM : Home with family care Current Home Treatment/Equipment : Current Home Treatment/Equipment No qualifying data available. Post Acute/Home Treatments : None Documentation Status Complete : Yes WATSON ESPINOZA Social Worker - 12/18/2021 14:19 EDT Discharge Needs II Professional Skilled Services : Professional Skilled Services No qualifying data available. Services and Community Resources : [facility] ([place]), Other: [facility] Needs Assistance with Transportation : No Discharge Options Discussed with Patient : Discharge transportation, DME, Outpatient services, Substance abuse/mental health Patient Discharge Goal : Home WATSON ESPINOZA Social Worker - 12/18/2021 14:19 EDT Narrative Note Narrative Note : Met w/ this 21 yr old MWF who delivered her first child, a girl (Leah) on 12/17/21 via emergent (due to bradycardia) @ 40 wks. Pt lives w/ spouse/FOBZia @ facesheet address. Facesheet has Jaya listed as sibling and incorrect phone #. Family got a huge laugh about this. Corrected info w/ Registration. Pt is already enrolled in [facility] and has everything needed for infant care including car seat and crib. She called [facility] in [employer] and left a message weeks ago but no one ever called her back. She is really interested in program. SW called and left as well, no return call yet. Upon presentation for delivery pt's UDS was + for THC and Benzos. Pt admits to using marijuana (for extreme N & V) and one other + THC UDS found in pre-emery records on 04/25/21. However she adamantly denies benzos - didn't even know what they were. SW discovered she was given versed at 1420 on DOD and her UDS was not done until 1545 same day, so that is legitimate explaination. Did explain to her that CPS report would be made due to this and she was understanding and thanked SW for figuring out the benzo. Web ID [id number]. Have not heard back if report was accepted, only rec confirmation of reciept. Pt denies any needs, both pt's and infants RNs have no concerns at all and she is bonding well w/ infant. SW will cont to follow while inpt. WATSON HWANG, Laundry Machine Mechanic - 12/18/2021 14:19 EDT Electronically signed by Alec [facility] Conversion Water Filter Cleaner Cerner at 09/11/2022 12:13 PM CDT documented in this encounter Plan of Treatment Not on file documented as of this encounter Visit Diagnoses Not on filedocumented in this encounter Care Teams Land Management Forester Relationship Specialty Start Date End Date Suzan Severino CNM PCP - General Obstetrics 05/25/23 documented as of this encounter
--- OUTSIDE RECORDS SUMMARY | 2024-12-11 12:15 | XMS_ITS | Clinical Summary ---
Author Organization [facility] Address [address] [place] [address] Care Team Providers Care Lockstitcher Name Role Phone Pcp, No Primary Care Provider Unavailabl e Allergies Active Allergy Reactions Criticality Noted Date Comments Penicillins Hives,Itching,Rash Medium 01/28/2023 Medications bacitracin 500 UNIT/GM ointment Apply to road rash 14 g 12/02/19 24 Active methocarbamol (Robaxin) 500 MG tablet Take 1 tablet (500 mg) by mouth 4 (four) times a day. 52 tablet 3 12/02/19 24 Active ondansetron ODT (Zofran-ODT) 4 MG disintegrating tablet Take 1 tablet (4 mg) by mouth every 6 (six) hours if needed for nausea or vomiting. 20 tablet 12/02/19 24 Active naloxone (Narcan) 4 mg/0.1 mL nasal spray 1. Give 1 spray in nostril for no/slow breathing or cannot wake after opioid use 2. Call 911 3. Repeat in other nostril if symptoms continue 1 each 12/02/19 24 Active Additional Information Patient not taking.Reported on 12/17/2023 senna-docusate (Josefina-Colace) 8.6-50 MG tablet Take 2 tablets by mouth every night. 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 Keep BACILIO drains in place, OK to pull on SGT clinic visit. Follow up appointment in [address] a/p. Resolved Problems Problem Noted Date Diagnosed Date Resolved Date Blunt abdominal trauma, initial encounter 11/25/2023 12/09/2023 Overview (12/01/2023): 11/24: Ex-lap, drainage of peripancreatic region, abdominal closure (Jpx2) 11/26: downgraded, NGT removed, started on clears 11/27: FLD 11/28: Drain amylase > 3x ULN x 2 Right BACILIO = 420 (vs 463?) Left BACILIO = 724 Surgical oncology consulted, input appreciated. Keep BACILIO drains 2 weeks unless output stops before then, OK to pull on SGT clinic visit. Follow up appointment in [address] a/p. Grade III laceration of liver 11/25/2023 12/09/2023 Overview (12/09/2023): Elbow laceration, right, initial encounter 11/25/2023 12/09/2023 Overview (11/28/2023): ORF to evaluate due to swelling, erythema, and proximity to joint. No evidence of underlying fracture; joint challenge negative per ORF Weightbearing as tolerated right upper Patient may discontinue dressings and applied bacitracin in 3 days (11/27) Struck by horse, initial encounter 11/25/2023 12/09/2023 Overview (11/29/2023): Admitted to SGT Tertiary exam completed 11/26 Social History Tobacco Use Types Packs/Day Years Used Date Smoking Tobacco: Never Smokeless Tobacco: Never Tobacco Cessation:Counseling Given: Not Answered Alcohol Use Standard Drinks/Week Comments Not Currently 0 (1 standard drink = 0.6 oz pur e alcohol) Humiliation, Afraid, Rape, and Kick questionnair e Answer Date Recorded Within the last year, have y ou been afraid of your partner or ex-partner? No 11/27/2023 Within the last year, have y ou been humiliated or emotionally abused in other ways by your partner or ex-partner? No Within the last year, have y ou been kicked, hit, slapped, or otherwise physically hurt by your partner or ex-partner? No 11/27/2023 Within the last year, have y ou been raped or forced to have any kind of sexual activity by your partner or ex-partner? No 11/27/2023 Social Connection and Isolation Panel Answer Date Recorded Frequency of Communication with Friends and Fami ly Not on file 11/27/2023 Frequency of Social Gatherings with Friends and Family Not on file 11/27/2023 Attends Shinto Services Not on file 11/26 Active Member of Clubs or Organizations Not on f ile 11/27/2023 Attends Club or Organization Meetings Not on jim e 11/27/2023 Are you , , di vorced, , never , or living with a partner? 11/27/2023 AUDIT-C Answer Date Recorded Q1: How often do you have a drink containing alc ohol? Monthly or less 11/27/2023 Q2: How many drinks containi ng alcohol do you have on a typical day when you are drinking? 1 or 2 11/27/2023 Q3: How often do you have si x or more drinks on one occasion? Never 11/27/2023 PHQ-2 Answer Date Recorded Patient Health Questionnaire-2 Score 0 12/24/2023 Hunger Vital Sign Answer Date Recorded Within the past 12 months, y ou worried that your food would run out before you got the money to buy more. Never true 11/27/19 24 Within the past 12 months, t he food you bought just didn't last and you didn't have money to get more. Never true 11/27/2023 PRAPARE - Transportation Answer Date Re corded In the past 12 months, has l ack of transportation kept you from medical appointments or from getting medications? No 07/2023 In the past 12 months, has l ack of transportation kept you from meetings, work, or from getting things needed for daily living? No 11/27/2023 Housing Stability Vital Sign Answer Juan e Recorded In the last 12 months, was t here a time when you were not able to pay the mortgage or rent on time? No 11/27/2023 Number of Places Lived in the Last Year Not on f ile 11/27/2023 In the last 12 months, was t here a time when you did not have a steady place to sleep or slept in a chcf (including now)? No 11/27/2023 CAGE ASSESSMENT Answer Date Recorded Cage unable to access Not on file 12/09/2023 Maximum number of drinks you had on a given occasion in the last month? 0 drinks 12/09/2023 How many alcoholic Beverages do you typically drink in a week? 0 - 7 per week 12/09/2023 Have you ever felt you should CUT down on your d rinking? 0 12/09/2023 Have you been ANNOYED by peo ple criticizing your drinking? 0 12/09/2023 Have you felt GUILTY about your drinking? 0 12/09/2023 Have you had a drink first t charlie in the morning (EYE-COMPREHENSIVE ADVISOR) to steady your nerves or to get rid of a hangover? 0 12/09/2023 CAGE Questionnaire Score 0 024 Utilities Answer Date Recorded In the past 12 months has th e electric, gas, oil, or water company threatened to shut off services in your home? No 11/27/2023 Comments Unknown Sex and Gender Information Value Date Recorded Sex Assigned at Not on file Legal Sex Female 6:35 PM EDT Gender Identity Not on file Sexual Orientation Not on file Last Filed Vital Signs Vital Sign Reading Time Taken Comments Blood Pressure 90/63 07/01/2024 1:25 AM EST Pulse 76 07/01/2024 1:25 AM EST Temperature 36.5 C (97.7 F) 07/01/2024 1:25 AM EST Respiratory Rate 18 07/01/2024 1:25 AM EST Oxygen Saturation 99% 07/01/2024 1:25 AM EST Inhaled Oxygen Concentration - - Weight 49.9 kg (110 lb) 06/30/2024 7:57 PM EST Height 160 cm (5' 3 ) 06/30/2024 7:57 PM EST Body Mass Index 19.49 06/30/2024 7:57 PM EST Plan of Treatment Health Maintenance Due Date Last Done Comments [facility]-Infant/Child/Adol SDOH Screenings 2002 [facility]-Varicella Vaccines (1 of 2 - 13+ 2-dose series) 08/20/2015 HPV Vaccines (1 - 3-dose series) 2017 [facility]-DTaP,Tdap,and Td Vaccine s (1 - Tdap) 2021 [facility]-Hepatitis A Vaccines (1 of 2 - Risk 2-dose series) 2021 [facility]-Hepatitis B Vaccines (1 of 3 - 19+ 3-dose series) 2021 [facility]-Pap Smear 08/20/2023 [id number]-[id number] Vaccine (1 - 20 24-25 season) 2024 [facility]- SDOH Screenings 05/29/2024 [facility]-Adult SDOH Screenings 05/29/2024 11/27/2023 [facility]-Depression Screening 12/23/2024 12/24/2023 [facility]-Influenza Vaccine (#1) 2025 [facility]-Zoster Vaccines (1 of 2) 2052 [facility]-HIV Screening Completed 11/25/2023 [facility]-Hepatitis C Screening Completed 11/25/2023 [facility]-HIB Vaccines Aged Out No longer e ligible based on patient's age to complete this topic [facility]-IPV Vaccines Aged Out No longer e ligible based on patient's age to complete this topic [facility]-Pneumococcal Vaccine: Pediatrics (0 to 5 Years) and At-Risk Patients (6 to 49 Years) Aged Out No long er eligible based on patient's age to complete this topic [facility]-Rotavirus Vaccines Aged Out No lo nger eligible based on patient's age to complete this topic Procedures Procedure Name Priority Date/Time Associated Diagnosis Comments HEPATITIS C ANTIBODY - ED W/REFLEX TO HCV QUANT PCR STAT 11/25/2023 10:47 AM EDT ED HIV 1/2 ANTIBODY/ANTIGEN SCREEN WITH REFLEX TO HIV I/II DIFFERENTIATION STAT 11/25/2023 10:47 AM EDT from Last 3 Months or Most Recently Relevant to Health Maintenance Results * ED HIV 1/2 Antibody/Antigen Screen w/Reflex to HIV 1/2 Differentiation (11/25/2023 10:47 AM EDT) Pathologist [facility] HIV 1 & 2 Antibody/Antigen Screen Non Reactive Non Reactive 11/25/2023 12:03 PM EDT [facility] Comment:Screening for HIV 1 & 2 antibodies, and P24 antigen is NONREACTIVE. No confirmatory testing is required. Blood Venous blood specimen / Unknown Venipuncture / Unknown 11/25/2023 10:47 AM EDT 11/25/2023 11:24 AM EDT Kevin Byrd MD LAB BLOOD ORDERABLES Final Res ult Performing Organization Address City/[facility] Co de Phone Number [facility]ALTHCARE [facility] [address] [place] [address] * Hepatitis C Antibody - ED (11/25/2023 10:47 AM EDT) Pathologist [facility] Hepatitis C Antibody Negative Negative 11/25/2023 12:03 PM EDT [facility] Blood Venous blood specimen / Unknown Venipuncture / Unknown 11/25/2023 10:47 AM EDT 11/25/2023 11:24 AM EDT Kevin Byrd MD LAB BLOOD ORDERABLES Final Res ult Performing Organization Address City/[facility] Co de Phone Number HEALTHCARE [facility] [address] [place] [address] from Last 3 Months or Most Recently Relevant to Health Maintenance Insurance [facility] MEDICAID Advance Directives * Full Code (Latest Code Status on File) Date Activated Date Inactivated Comments 11/25/2023 5:23 PM 12/02/2023 5:39 PM Question Answer Comments Patient has decision-making capacity? Yes Care Teams Lockstitcher Relationship Specialty Start Date End Date Pcp, No [address] [place] [address] PCP - General Family Medicine 01/29/24
--- OUTSIDE RECORDS SUMMARY | 2024-12-11 12:15 | XMS_ITS | Encounter Summary ---
Author Organization [employer] ([place], [place], [place], [place]) Address [address] [place] [address] Care Team Providers Care Game Farm Supervisor Name Role Phone Suzan Severino CNM Primary Care Provider [phone]- [phone] Encounter Details Date Type Department Care Team (Late st Contact Info) Description 12/18/2021 Transcribed Document [facility] [place] [address] [place] [address] ProviderIsaías MD [address] [place] [address] Social History Tobacco Use Types [...] speak a language other than Kyrgyz at [facility]? No 07/24/2023 Do you want help with [...] Conversion Note - Historical Provider, - 12/18/2021 7:20 PM CDT Patient: KANDACE GONZALEZ Age: 21 Years Sex: Female : 2000 Subjective s/p primary for intolerance of labor at complete dilation. baby girl doing well. no nicu time. no known cause for distress, came to hosp in active labor 8cm and things were fine until they were not pain well controlled on tylenol/motrin. Review of Systems ros neg except where noted Objective Vitals & Measurements SpO2: 96% General: nad Breast: nontender Cardiovascular: reg rate Lungs: unlabored Abdomen: fundus firm, nl lochia Ext: no edema Incision/Episiotomy/Lac: inc well approx no redness or drainage Assessment/Plan 1. discussed good candidate for TOLAC if adequate spacing 18+ months from formerly [facility] to del 2. routine pp care 40 weeks gestation of Z3A.40 delivery delivered [...] OGTT scheduled for 6 week visit: Yes(_)/No(_) Infant Data (_) NICU (_) Medications Inpatient aluminum hydroxide/magnesium hydroxide/simethicone 200 mg-200 mg-20 mg/5 mL oral suspension, 30 mL, Oral, Q4H, PRN Ambien, 5 mg= 1 Tab, Oral, At Bedtime, PRN Colace, 100 mg= 1 Cap, Oral, TID Cytotec, 1000 mcg= 5 Tab, Rectal, 1-Time, PRN Dextrose 5% in Lactated Ringers intravenous solution 1,000 mL, 1000 mL, IntraVENous Dilaudid 6 mg/30 ml MURAL PAINTER 6 mg, 6 mg= 30 mL, IntraVENous [...] simethicone, 125 mg= 1 Tab, Oral, TID Zofran, 4 mg= 2 mL, IV Push, Q4H, PRN Home Multivitamins, Oral, Daily Problem List/Past Medical History Ongoing No chronic problems Historical No qualifying data Lab Results DEC 18 08:14 \ 11.2 / H 17.4 181 / L 33.4 \ documented in this encounter Plan of Treatment Not on file documented as of this encounter Visit Diagnoses Not on filedocumented in this encounter Care Teams Game Farm Supervisor Relationship Specialty Start Date End Date Maycol, JABARI Mares PCP - General Obstetrics 05/25/23 documented as of this encounter
--- OUTSIDE RECORDS SUMMARY | 2024-12-11 12:15 | XMS_ITS | Clinical Summary ---
Author Organization [facility] Address [address] [place] [address] Care Team Providers Care Superintendent Maintenance Name Role Phone Provider, No Known Primary Care Provider Unavail able Allergies Active Allergy Reactions Criticality Noted Date Comments Penicillin G Itching,Rash Medium 05/25/2023 Medications VITAMIN D PO Take 50,000 Units by mouth Every 7 (Seven) Days. Active ondansetron ODT (ZOFRAN-ODT) [address] 2 tablets on the tongue As Needed. Active Ferrous Sulfate (IRON PO) Take 1 tablet by mouth Daily. Active Active Problems Problem Noted Date Diagnosed Date Maternal care for (suspected ) damage to fetus from viral disease in mother, not applicable or unspecified 05/28/2023 Family History Medical History Relation Name Comments Breast cancer Neg Hx Colon cancer Neg Hx Endometrial cancer Neg Hx Ovarian cancer Neg Hx Uterine cancer Neg Hx Social History Tobacco Use Types Packs/Day Years Used Date Smoking Tobacco: Never Smokeless Tobacco: Never Comments:pt uses vape Alcohol Use Standard Drinks/Week Comments Never 0 (1 standard drink = 0.6 oz pur e alcohol) AUDIT-C Answer Date Recorded Q1: How often do you have a drink containing alc ohol? Never 05/12/2020 Average Number of Drinks Not on file 020 Frequency of Binge Drinking Not on file 04/26 Abuse Screen Answer Date Recorded Unsafe at Home or Work/School Not on file Feels Threatened by Someone? Not on file 04/2023 Does Anyone Keep You from Co ntacting Others or Doint Things Outside the Home? Not on file 03/07/2023 Physical Sign of Abuse Present Not on file 1 Housing Stability Answer Date Recorded Current Living Arrangements Not on file 02/24 Potentially Unsafe Housing Conditions Not on jim e 03/07/2023 Family and Community Support Answer Juan e Recorded Help with Day-to-Day Activities Not on file 03/07/2023 Lonely or Isolated Not on file 03/07/2023 Employment Answer Date Recorded Do you want help finding or keeping work or a nichole b? Not on file 03/07/2023 Disabilities Answer Date Recorded Concentrating, Remembering, or Making Decisions Difficulty Not on file 03/07/2023 Doing Errands Independently Difficulty Not on fi le 03/07/2023 Education Answer Date Recorded Help with school or training? Not on file Preferred Language Not on file 03/07/2023 Comments No Sex and Gender Information Value Date Recorded Sex Assigned at Not on file Legal Sex Female 12:26 PM EDT Gender Identity Not on file Sexual Orientation Not on file Last Filed Vital Signs Vital Sign Reading Time Taken Comments Blood Pressure 87/51 05/28/2023 9:27 AM EST Pulse 98 04/28/2020 7:55 PM EST Temperature 36.7 C (98 F) 04/28/2020 2:09 PM EST Respiratory Rate 14 04/28/2020 2:09 PM EST Oxygen Saturation 98% 04/28/2020 7:55 PM EST Inhaled Oxygen Concentration - - Weight 52.3 kg (115 lb 3.2 oz) 05/28/2023 9:27 A M EST Height 161.3 cm (5' 3.5 ) 05/28/2023 9:30 AM EST Body Mass Index 20.09 05/28/2023 9:27 AM EST Plan of Treatment Health Maintenance Due Date Last Done Comments Annual Gynecologic Pelvic an d Breast Exam 2000 MENINGOCOCCAL B VACCINE (1 o f 2 - Standard) 2018 ANNUAL PHYSICAL 10/11/2019 CHLAMYDIA SCREENING 10/11/2019 TDAP/TD VACCINES (2 - Td or Tdap) 12/03/2023 12/02/2013 COVID-19 Vaccine ( - 2023-2 5 season) 2024 INFLUENZA VACCINE 02/24/2025 04/14/2013, 04/29/2012 HPV VACCINES Completed 12/31/2017, 03/15/2017 MENINGOCOCCAL VACCINE Completed 07/14/2019 HEPATITIS C SCREENING Completed 11/25/2023 Pneumococcal Vaccine 0-49 Aged Out No longer eligible based on patient's age to complete this topic Insurance Care Teams Superintendent Maintenance Relationship Specialty Start Date End Date Provider, No Known [facility] [place] [address] PCP - General 10/11/19
--- OUTSIDE RECORDS SUMMARY | 2024-12-11 12:15 | XMS_ITS | Encounter Summary ---
Author Organization [employer] ([place], [place], [place], [place]) Address [address] [place] [address] Care Team Providers Care Stripper And Taper Name Role Phone Suzan Severino CNM Primary Care Provider Encounter Details Date Type Department Care Team (Late st Contact Info) Description 05/05/2021 Transcribed Document [facility] [place] [address] [place] [address] ProviderIsaías MD [address], [place] [address] Social History Tobacco Use Types Packs/Day Years [...] Conversion Note - Historical ProviderMD - 05/05/2021 7:34 AM QUILL WORKER Broset Violence Assessment Entered On: 05/05/2021 7:47 EST Performed On: 05/05/2021 7:46 EST by Tamera Birmingham RN Broset Violence Assessment Broset Violence Checklist of Symptoms : None Broset Violence Symptoms Subtotal : 0 Broset Violence Symptoms Indicator : Low risk (0) Tamera Birmingham RN - 05/05/2021 7:46 EST Electronically signed by Alec [facility] Conversion Managing Director Cerner at 09/11/2022 12:40 PM CDT documented in this encounter Plan of Treatment Not on file documented as of this encounter Visit Diagnoses Not on filedocumented in this encounter Care Teams Stripper And Taper Relationship Specialty Start Date End Date Suzan Severino CNM PCP - General Obstetrics 05/25/23 documented as of this encounter
--- OUTSIDE RECORDS SUMMARY | 2024-12-11 12:15 | XMS_ITS | Encounter Summary ---
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? No 07/24/2023 Do you want help [...] Conversion Note - Historical Provider, - 12/20/2021 10:17 [place] [address] KANDACE GONZALEZ :2000 Visit Time:12/17/2021 Your Visit Summary Your Care Team Admitting Physician - SHILO MASTERS MD-OBG Attending Physician - SHILO MASTERS MD-OBG Primary Care Physician - SHILO MASTERS MD-OBG Referring Physician - JONE LOPEZ, RIAZ, JABARI Your Diagnosis 40 weeks gestation of delivery delivered Encounter for supervision of normal first , unspecified trimester, Encounter for supervision of normal first , unspecified trimester bradycardia, delivered, current hospitalization These Are Your Goals Patient Discharge Goal Patient Discharge Goal: Home What to do next Instructions From Your Care Team Diet after Discharge: Resume usual diet as tolerated Activity After Discharge:As tolerated,Rest and relax today,No strenuous activities,Nothing in the vagina for 6 weeks Lifting Restrictions: no lifting over 10 lbs Weight Bearing Restrictions:Full weight bearing Minimize Stair Climbing Discuss Exercise with your physician Driving after Discharge:No driving for 2 weeks Showering Bathing:May Shower,No tub bathing, soaking or swimming,_ Breast Care: Wear supportive bras as much as possible Practice self-breast exam monthly , Notify Provider of: Redness, swelling, or drainage from incision Foul smelling vaginal discharge Temperature over 100.4 degrees Fahrenheit Signs of depression or anxiety that makes it hard for you to care for yourself or your baby Weight up more than 2 pounds a day or more than 5 pounds in a week Incision pulling apart Pass blood clots larger than a golf ball Sharp pain or redness in your legs Painful urination or feeling like you have to go to the bathroom all the time Have breast pain with fever and chills Excessive vomiting or diarrhea Vaginal bleeding greater than 1 pad per hour Pain is worsening and current pain medication is not adequate When to go to the Emergency Room or call 911: Shortness of breath or chest pain Unable to reach provider Wound/Incision Care After Discharge: Keep operative site/wound site clean and dry Discharge Activity: Discharge Activity: Activity as tolerated Diet: Discharge Diet: Resume usual diet as tolerated Follow-Up Appointments Follow Up with JONE LOPEZ When 01/02/2022 02:30 PM EDT Where: Medications What How Much When Instructions Next Dose acetaminophen (Tylenol Extra Strength 500 mg oral tablet) 2 Tablet(s) Oral Every 6 Hours as needed for as needed for pain Pickup at [facility] ibuprofen (ibuprofen 800 mg oral tablet) 1 Tablet(s) Oral Every 8 Hours Pickup at [facility] 12/20/21 at 6pm oxyCODONE (oxyCODONE 5 mg oral tablet) 1 Tablet(s) Oral Every 6 Hours as needed for as needed for pain Pickup at [facility] multivitamin, ( Multivitamins) Oral Every Day Pharmacy Information [facility]: [address] [place], [place] [id number] [phone] Take your medications faithfully. Do NOT skip [...] This Visit No Immunizations Found Education Materials Care After Delivery This sheet gives you information about how to care for yourself from the time you deliver your baby to up to 6???12 weeks after delivery ( period). Your health care provider may also give you more specific instructions. If you have problems or questions, contact your health care provider. Follow these instructions at home: Medicines ??? Take qsha-uqx-xebayvl and prescription medicines only as told by [...] keep your urine pale yellow. ? Take fcfl-pvl-dorndmj or prescription medicines. ? Eat foods that [...] For most women, lochia stops completely by 4???6 weeks after delivery. Vaginal bleeding can vary [...] are not , your period should return 6???8 weeks after delivery. If you are , [...] hemorrhoids, try taking a warm sitz bath 2???3 times a day. A sitz bath is [...] with your health care provider or a security consultant. ??? If you are not : [...] provider for a checkup within the first 3???6 weeks after delivery. Contact a health care [...] you deliver your baby to up to 6???12 weeks after delivery is called the period. [...] provider. Document Revised: 12/31/2018 Document Reviewed: 12/31/2018 Elsevier Patient Education ?? 202 [employer]. FAQ ??? Patient COVID-19 testing Why do I need [...] patients who test positive for COVID-19. If I???m a patient, should I wear a mask? [...] through the local health department and the [place] Department for Public Health. Those organizations are [...] need during a recommended self-quarantine period. The patient???s name is not revealed to anyone during the contact tracing interviews, even if a contact asks. Who would be considered a ???close contact?? ? According to the CDC, a close [...] a face covering and maintain social distancing ??? at least 6 feet from others at [...] and need to call 911, notify the folder machine operator that you have, or think you [...] others. You should stay in a specific ???sick room?? if possible, and away from other people [...] (including before you enter a health care provider???s office). ??? If you are caring for [...] clean your hands with an alcohol-based hand outside parts sales that contains at least 60% alcohol. Clean your hands often. ??? Wash hands: Wash your hands often with soap and water for at least 20 seconds when visibly dirty. This is especially important after blowing your nose, coughing or sneezing, and going to the bathroom, and before eating or preparing food. ??? Hand outside parts sales: Use an alcohol-based hand outside parts sales with at least 60% alcohol, covering all [...] and water or put them in the executive legal secretary. Clean all high-touch surfaces every day. Clean high-touch surfaces in your isolation area (???sick room?? and bathroom) every day; let a caregiver clean and disinfect high-touch surfaces in other areas of the home. ??? Clean and disinfect: Routinely clean high-touch surfaces in your ???sick room?? and bathroom. Let someone else clean and disinfect surfaces in common areas, but not your bedroom and bathroom. ? If a caregiver or other person needs to clean and disinfect a sick person???s bedroom or bathroom, they should do so [...] or body fluids on them. ??? Household cardiovascular surgeon and disinfectants: Clean the area or item with soap and water or another detergent if it is dirty. Then, use a household disinfectant. ??? Be sure to follow the instructions on the label to ensure safe and effective use of the product. Many products recommend keeping the surface wet for several minutes to ensure germs are killed. Many also recommend precautions such as wearing gloves and making sure you have good ventilation during use of the product. ??? Most EPA-registered household disinfectants should be effective. A full list of disinfectants can be found here: https://www.epa.gov/pesticide-registration/avtm-l-symzrqnsdphhw-ybc-fcuxzqb-yw rs-cov-2 oxycodone (ox i KOE done) Oxaydo, OxyCONTIN, Oxyfast, OxyIR, Roxicodone, Xtampza ER What is the most important information I should know about oxycodone? MISUSE OF OPIOID MEDICINE CAN CAUSE ADDICTION, OVERDOSE, OR . Keep the medication in a place where others cannot get to it. Taking opioid medicine during may cause life-threatening withdrawal symptoms in the . Fatal side effects can occur if you use opioid medicine with alcohol, or with other drugs that cause drowsiness or slow your breathing. What is oxycodone? Oxycodone is an opioid pain medication used to treat moderate to severe pain. The extended-release form of oxycodone is for luexcl-wxr-fkcyd treatment of pain and should not be used on an as-needed basis for pain. Oxycodone may also be used for purposes not listed in this medication guide. What should I discuss with my healthcare provider before using oxycodone? You should not use oxycodone if you are allergic to it, or if you have: ?? severe asthma or breathing problems; or ?? a blockage in your stomach or intestines. You should not use oxycodone unless you are already using a similar opioid medicine and are tolerant to it. Most brands of oxycodone are not approved for use in people under 18. OxyContin should not be given to a child younger than 11 years old. Tell your doctor if you have ever had: ?? breathing problems, sleep apnea; ?? a head injury, or seizures; ?? drug or alcohol addiction, or mental illness; ?? liver or kidney disease; ?? urination problems; or ?? problems with your gallbladder, pancreas, or thyroid. If you use opioid medicine while you are , your baby could become dependent on the drug. This can cause life-threatening withdrawal symptoms in the baby after it is born. Babies born dependent on opioids may need medical treatment for several weeks. Ask a doctor before using opioid medicine if you are . Tell your doctor if you notice severe drowsiness or slow breathing in the nursing baby. How should I use oxycodone? Follow the directions on your prescription label and read all medication guides. Never use oxycodone in larger amounts, or for longer than prescribed. Tell your doctor if you feel an increased urge to take more of this medicine. Never share opioid medicine with another person, especially someone with a history of drug abuse or addiction. MISUSE CAN CAUSE ADDICTION, OVERDOSE, OR . Keep the medication in a place where others cannot get to it. Selling or giving away opioid medicine is against the law. Stop taking all other fclajp-jpv-xngol opioid pain medicines when you start taking extended-release oxycodone. Take oxycodone with food. Swallow the capsule or tablet whole to avoid exposure to a potentially fatal overdose. Do not crush, chew, break, open, or dissolve. If you cannot swallow a capsule whole, open it and sprinkle the medicine into a spoonful of pudding or applesauce. Swallow the mixture right away without chewing. Do not save it for later use. Never crush or break an oxycodone pill to inhale the powder or mix it into a liquid to inject the drug into your vein. This can cause in . Measure liquid medicine carefully. Use the dosing syringe provided, or use a medicine dose-measuring device (not a kitchen spoon). You should not stop using oxycodone suddenly. Follow your doctor's instructions about tapering your dose. Store at room temperature, away from heat, moisture, and light. Keep track of your medicine. Oxycodone is a drug of abuse and you should be aware if anyone is using your medicine improperly or without a prescription. Do not keep leftover opioid medication. Just one dose can cause in someone using this medicine accidentally or improperly. Ask your pharmacist where to locate a drug take-back disposal program. If there is no take-back program, flush the unused medicine down the toilet. What happens if I miss a dose? Since oxycodone is used for pain, you are not likely to miss a dose. Skip any missed dose if it is almost time for your next dose. Do not use two doses at one time. What happens if I overdose? Seek emergency medical attention or call the Poison Help line at . An opioid overdose can be fatal, especially in a child or other person using the medicine without a prescription. Overdose symptoms may include severe drowsiness, pinpoint pupils, slow breathing, or no breathing. Your doctor may recommend you get naloxone (a medicine to reverse an opioid overdose) and keep it with you at all times. A person caring for you can give the naloxone if you stop breathing or don't wake up. Your caregiver must still get emergency medical help and may need to perform CPR (cardiopulmonary resuscitation) on you while waiting for help to arrive. Anyone can buy naloxone from a pharmacy or local health department. Make sure any person caring for you knows where you keep naloxone and how to use it. What should I avoid while using oxycodone? Do not drink alcohol. Dangerous side effects or could occur. Avoid driving or operating machinery until you know how oxycodone will affect you. Dizziness or severe drowsiness can cause falls or other accidents. Avoid medication errors. Always check the brand and strength of oxycodone you get from the pharmacy. What are the possible side effects of oxycodone? Get emergency medical help if you have signs of an allergic reaction: hives; difficult breathing; swelling of your face, lips, tongue, or throat. Opioid medicine can slow or stop your breathing, and may occur. A person caring for you should give naloxone and/or seek emergency medical attention if you have slow breathing with long pauses, blue colored lips, or if you are hard to wake up. Call your doctor at once if you have: ?? noisy breathing, sighing, shallow breathing, breathing that stops during sleep; ?? a slow heart rate or weak pulse; ?? a light-headed feeling, like you might pass out; ?? confusion, unusual thoughts or behavior; ?? seizure (convulsions); ?? low cortisol levels-- nausea, vomiting, loss of appetite, dizziness, worsening tiredness or weakness; or ?? high levels of serotonin in the body--agitation, hallucinations, fever, sweating, shivering, fast heart rate, muscle stiffness, twitching, loss of coordination, nausea, vomiting, diarrhea. Serious breathing problems may be more likely in older adults and in those who are debilitated or have wasting syndrome or chronic breathing disorders. Common side effects may include: ?? drowsiness, headache, dizziness, tiredness; or ?? constipation, stomach pain, nausea, vomiting. This is not a complete list of side effects and others may occur. Call your doctor for medical advice about side effects. You may report side effects to FDA at 3-752-RBT-4630. What other drugs will affect oxycodone? You may have breathing problems or withdrawal symptoms if you start or stop taking certain other medicines. Tell your doctor if you also use an antibiotic, antifungal medication, heart or blood pressure medication, seizure medication, or medicine to treat HIV or hepatitis C. Opioid medication can interact with many other drugs and cause dangerous side effects or . Be sure your doctor knows if you also use: ?? cold or allergy medicines, bronchodilator asthma/COPD medication, or a diuretic ('water pill'); ?? medicines for motion sickness, irritable bowel syndrome, or overactive bladder; ?? other opioids--opioid pain medicine or prescription cough medicine; ?? a sedative like Valium--diazepam, alprazolam, lorazepam, Xanax, Klonopin, Versed, and others; ?? drugs that make you sleepy or slow your breathing--a sleeping pill, muscle relaxer, medicine to treat mood disorders or mental illness; or ?? drugs that affect serotonin levels in your body--a stimulant, or medicine for depression, Parkinson's disease, migraine headaches, serious infections, or nausea and vomiting. This list is not complete and many other drugs may affect oxycodone. This includes prescription and tpym-hll-vnczwhz medicines, vitamins, and herbal products. Not all possible drug interactions are listed here. Where can I get more information? Your pharmacist can provide more information about oxycodone. Remember, keep this and all other medicines out of the reach of children, never share your medicines with others, and use this medication only for the indication prescribed. Every effort has been made to ensure that the information provided by [employer]. [employer]') is accurate, up-to-date, and complete, but no guarantee is made to that effect. Drug information contained herein may be time sensitive. [employer] information has been compiled for use by healthcare practitioners and consumers in the [place] and therefore [employer] does not warrant that uses outside of the [place] are appropriate, unless specifically indicated otherwise. [employer]'s drug information does not endorse drugs, diagnose patients or recommend therapy. [employer] drug information is an informational resource designed to assist licensed healthcare practitioners in caring for their patients and/or to serve consumers viewing this service as a supplement to, and not a substitute for, the expertise, skill, knowledge and judgment of healthcare practitioners. The absence of a warning for a given drug or drug combination in no way should be construed to indicate that the drug or drug combination is safe, effective or appropriate for any given patient. [employer] does not assume any responsibility for any aspect of healthcare administered with the aid of information [employer] provides. The information contained herein is not intended to cover all possible uses, directions, precautions, warnings, drug interactions, allergic reactions, or adverse effects. If you have questions about the drugs you are taking, check with your doctor, nurse or pharmacist. Copyright 8378-7294 [employer]. Version: 14.02. Revision Date: 06/23/2020. acetaminophen (oral) (a SEET a MIN oh fen) Actamin, Anacin AF, Aurophen, Bromo Hammond, Children's Tylenol, Mapap, M-Pap, Pharbetol, Silapap Childrens, Tactinal, Tempra Quicklets, Tycolene, Tylenol, Vitapap What is the most important information I should know about acetaminophen? An overdose of acetaminophen can damage your liver or cause . Call your doctor at once if you have upper stomach pain, loss of appetite, dark urine, or jaundice (yellowing of your skin or eyes). Stop taking this medicine and get medical help if you have skin redness or a blistering rash. What is acetaminophen? Acetaminophen is used to reduce fever and relieve minor pain caused by conditions such as colds or flu, headache, muscle aches, arthritis, and menstrual cramps. Acetaminophen may also be used for purposes not listed in this medication guide. What should I discuss with my healthcare provider before taking acetaminophen? You should not take acetaminophen if you are allergic to it, or if you take other medications that contain acetaminophen. Ask a doctor or pharmacist if this medicine is safe to use if you've ever had cirrhosis of the liver, or if you drink alcohol daily. Ask a doctor before using this medicine if you are or . How should I take acetaminophen? Use exactly as directed on the label, or as prescribed by your doctor. An acetaminophen overdose can damage your liver or cause . ?? Adults and teenagers at least 12 years old: Do not take more than 1000 milligrams (mg) at one time or more than 4000 mg in 24 hours. ?? Children younger than 12 years old: Do not take more than 5 doses of children's formula acetaminophen in 24 hours. Do not give extra-strength acetaminophen to a child younger than 12 years old without medical advice. A child's dose is based on age and weight. Carefully follow the dosing instructions provided with this medicine. Ask a doctor before giving this medicine to a child younger than 2 years. Acetaminophen made for infants comes with its own medicine dropper or oral syringe. Measuring with the wrong device may cause an overdose. Use only the provided dosing device provided to measure an 's dose. Acetaminophen comes in many different forms such as capsules, liquid, chewable or disintegrating tablets, and dissolving powders or granules. Read and carefully follow any Instructions for Use provided with your medicine. Ask your doctor or pharmacist if you need help. Stop taking acetaminophen and call your doctor if: ?? you still have a sore throat after 2 days of use; ?? you still have a fever after 3 days of use; ?? you still have pain after 7 days of use (or 5 days if treating a child); ?? you have a skin rash, ongoing headache, nausea, vomiting, redness or swelling; or ?? your symptoms get worse, or if you have any new symptoms. Taking acetaminophen may cause false results with certain blood glucose monitors. If you have diabetes, ask your doctor about the best way to monitor your blood sugar levels while using acetaminophen. Store at room temperature away from heat and moisture. What happens if I miss a dose? Acetaminophen is used when needed. If you are on a dosing schedule, skip any missed dose. Do not use two doses at one time. What happens if I overdose? Seek emergency medical attention or call the Poison Help line at . An overdose can be fatal. Overdose symptoms include vomiting, stomach pain, and yellowing of your skin or eyes. What should I avoid while taking acetaminophen? Avoid using other medicines that may contain acetaminophen. Avoid drinking alcohol. What are the possible side effects of acetaminophen? Get emergency medical help if you have signs of an allergic reaction: hives; difficulty breathing; swelling of your face, lips, tongue, or throat. In rare cases, acetaminophen may cause a severe skin reaction that can be fatal, even if you took acetaminophen in the past and had no reaction. Stop taking this medicine and call your doctor right away if you have skin redness or a rash that spreads and causes blistering and peeling. Stop taking acetaminophen and call your doctor at once if you have signs of liver problems: ?? stomach pain (upper right side); ?? loss of appetite; ?? tiredness, itching; ?? dark urine, manpreet-colored stools; or ?? jaundice (yellowing of the skin or eyes). Less serious side effects may be more likely, and you may have none at all. This is not a complete list of side effects and others may occur. Call your doctor for medical advice about side effects. You may report side effects to FDA at 4-315-UUH-3788. What other drugs will affect acetaminophen? Other drugs may affect acetaminophen, including prescription and kgwe-tpz-wkqzirq medicines, vitamins, and herbal products. Tell your doctor about all other medicines you use. Where can I get more information? Your pharmacist can provide more information about acetaminophen. Remember, keep this and all other medicines out of the reach of children, never share your medicines with others, and use this medication only for the indication prescribed. Every effort has been made to ensure that the information provided by [employer]. [employer]') is accurate, up-to-date, and complete, but no guarantee is made to that effect. Drug information contained herein may be time sensitive. [employer] information has been compiled for use by healthcare practitioners and consumers in the [place] and therefore [employer] does not warrant that uses outside of the [place] are appropriate, unless specifically indicated otherwise. [employer] drug information does not endorse drugs, diagnose patients or recommend therapy. [employer] drug information is an informational resource designed to assist licensed healthcare practitioners in caring for their patients and/or to serve consumers viewing this service as a supplement to, and not a substitute for, the expertise, skill, knowledge and judgment of healthcare practitioners. The absence of a warning for a given drug or drug combination in no way should be construed to indicate that the drug or drug combination is safe, effective or appropriate for any given patient. [employer] does not assume any responsibility for any aspect of healthcare administered with the aid of information [employer] provides. The information contained herein is not intended to cover all possible uses, directions, precautions, warnings, drug interactions, allergic reactions, or adverse effects. If you have questions about the drugs you are taking, check with your doctor, nurse or pharmacist. Copyright 9065-8209 [employer]. Version: 22.02. Revision Date: 07/14/2021. ibuprofen (EYE bue PROE fen) Advil, Genpril, IBU, Midol IB, Motrin IB, Proprinal, [employer] Children[facility] Ibuprofen What is the most important information I should know about ibuprofen? Ibuprofen can increase your risk of fatal heart attack or stroke. Do not use this medicine just before or after heart bypass surgery (coronary artery bypass graft, or CABG). Ibuprofen may also cause stomach or intestinal bleeding, which can be fatal. What is ibuprofen? Ibuprofen is a nonsteroidal anti-inflammatory drug (NSAID). Ibuprofen is used to reduce fever and treat pain or inflammation caused by many conditions such as headache, toothache, back pain, arthritis, menstrual cramps, or minor injury. This medicine is used in adults and children who are at least 6 months old. Ibuprofen may also be used for purposes not listed in this medication guide. What should I discuss with my healthcare provider before taking ibuprofen? Ibuprofen can increase your risk of fatal heart attack or stroke, even if you don't have any risk factors. Do not use this medicine just before or after heart bypass surgery (coronary artery bypass graft, or CABG). Ibuprofen may also cause stomach or intestinal bleeding, which can be fatal. These conditions can occur without warning while you are using ibuprofen, especially in older adults. You should not use ibuprofen if you are allergic to it, or if you have ever had an asthma attack or severe allergic reaction after taking aspirin or an NSAID. Ask a doctor or pharmacist if this medicine is safe to use if you have ever had: ?? heart disease, high blood pressure, high cholesterol, diabetes, or if you smoke; ?? a heart attack, stroke, or blood clot; ?? stomach ulcers or bleeding; ?? liver or kidney disease; ?? asthma; or ?? if you take aspirin to prevent heart attack or stroke. Ask a doctor before using this medicine if you are or . If you are , you should not take ibuprofen unless your doctor tells you to. Taking an NSAID during the last 20 weeks of can cause serious heart or kidney problems in the unborn baby and possible complications with your . Do not give ibuprofen to a child younger than 6 months old without the advice of a doctor. How should I take ibuprofen? Use exactly as directed on the label, or as prescribed by your doctor. Use the lowest dose that is effective in treating your condition. An ibuprofen overdose can damage your stomach or intestines. The maximum amount of ibuprofen for adults is 800 milligrams per dose or 3200 mg per day (4 maximum doses). A child's dose of ibuprofen is based on the age and weight of the child. Carefully follow the dosing instructions provided with children's ibuprofen for the age and weight of your child. Ask a doctor or pharmacist if you have questions. Take ibuprofen with food or milk to lessen stomach upset. Shake the oral suspension (liquid) before you measure a dose. Use the dosing syringe provided, or use a medicine dose-measuring device (not a kitchen spoon). You must chew the chewable tablet before you swallow it. Store at room temperature away from moisture and heat. Do not allow the liquid medicine to freeze. What happens if I miss a dose? Since ibuprofen is used when needed, you may not be on a dosing schedule. Skip any missed dose if it's almost time for your next dose. Do not use two doses at one time. What happens if I overdose? Seek emergency medical attention or call the Poison Help line at . Overdose symptoms may include nausea, vomiting, stomach pain, drowsiness, black or bloody stools, coughing up blood, shallow breathing, fainting, or coma. What should I avoid while taking ibuprofen? Ask a doctor or pharmacist before using other medicines for pain, fever, swelling, or cold/flu symptoms. They may contain ingredients similar to ibuprofen (such as aspirin, ibuprofen, ketoprofen, or naproxen). Avoid taking aspirin unless your doctor tells you to. If you also take aspirin to prevent stroke or heart attack, taking ibuprofen can make aspirin less effective in protecting your heart and blood vessels. If you take both medicines, take ibuprofen at least 8 hours before or 30 minutes after you take aspirin (non-enteric coated form). Avoid drinking alcohol. It may increase your risk of stomach bleeding. What are the possible side effects of ibuprofen? Get emergency medical help if you have signs of an allergic reaction (hives, difficult breathing, swelling in your face or throat) or a severe skin reaction (fever, sore throat, burning eyes, skin pain, red or purple skin rash with blistering and peeling). Get emergency medical help if you have signs of a heart attack or stroke: chest pain spreading to your jaw or shoulder, sudden numbness or weakness on one side of the body, slurred speech, leg swelling, feeling short of breath. Stop using ibuprofen and call your doctor at once if you have: ?? changes in your vision; ?? shortness of breath (even with mild exertion); ?? swelling or rapid weight gain; ?? a skin rash, no matter how mild; ?? signs of stomach bleeding--bloody or tarry stools, coughing up blood or vomit that looks like coffee grounds; ?? liver problems--nausea, upper stomach pain, itching, tired feeling, flu-like symptoms, loss of appetite, dark urine, manpreet-colored stools, jaundice (yellowing of the skin or eyes); ?? low red blood cells (anemia)--pale skin, feeling light-headed or short of breath, rapid heart rate, trouble concentrating; or ?? kidney problems--little or no urinating, painful or difficult urination, swelling in your feet or ankles, feeling tired or short of breath. Common side effects may include: ?? nausea, vomiting, gas; ?? bleeding; or ?? dizziness, headache. This is not a complete list of side effects and others may occur. Call your doctor for medical advice about side effects. You may report side effects to FDA at 8-767-ZTW-0842. What other drugs will affect ibuprofen? Ask your doctor before using ibuprofen if you take an antidepressant. Taking certain antidepressants with an NSAID may cause you to bruise or bleed easily. Ask a doctor or pharmacist before using ibuprofen with any other medications, especially: ?? cyclosporine; ?? lithium; ?? methotrexate; ?? a blood thinner (warfarin, Coumadin, Jantoven); ?? heart or blood pressure medication, including a diuretic or 'water pill'; or ?? steroid medicine (such as prednisone). This list is not complete. Other drugs may affect ibuprofen, including prescription and [id number] medicines, vitamins, and herbal products. Not all possible drug interactions are listed here. Where can I get more information? Your pharmacist can provide more information about ibuprofen. Remember, keep this and all other medicines out of the reach of children, never share your medicines with others, and use this medication only for the indication prescribed. Every effort has been made to ensure that the information provided by [employer]') is accurate, up-to-date, and complete, but no guarantee is made to that effect. Drug information contained herein may be time sensitive. [employer] information has been compiled for use by healthcare practitioners and consumers in the [place] and therefore [employer] does not warrant that uses outside of the [place] are appropriate, unless specifically indicated otherwise. [employer]'s drug information does not endorse drugs, diagnose patients or recommend therapy. [facility] drug information is an informational resource designed to assist licensed healthcare practitioners in caring for their patients and/or to serve consumers viewing this service as a supplement to, and not a substitute for, the expertise, skill, knowledge and judgment of healthcare practitioners. The absence of a warning for a given drug or drug combination in no way should be construed to indicate that the drug or drug combination is safe, effective or appropriate for any given patient. [facility] does not assume any responsibility for any aspect of healthcare administered with the aid of information [facility] provides. The information contained herein is not intended to cover all possible uses, directions, precautions, warnings, drug interactions, allergic reactions, or adverse effects. If you have questions about the drugs you are taking, check with your doctor, nurse or pharmacist. Copyright 6546-8648 [facility]. Version: 22.. Revision Date: 04/20/2020. Emergency Awareness and Preventative Care STROKE is [...] Assistance with quitting is available by contacting 7-278-JLBB-NOW. This is a free resource providing counseling, [...] This Visit (last charted value for your 12/17/2021 visit) Blood Gases 12/17/2021 2:33 PM BE Art Umb: -5 mmol/L HCO3 Art Umb: 23 mmol/L pCO2 Art Umb: 49 mmHg sO2 Art Umb: 17 % pO2 Art Umb: 14 mmHg pH Art Umb: 7.27 Hematology 12/18/2021 8:14 AM WBC: 17.4 K/uL -- Normal range between ( 3.9 and 10.0 ) RBC: 4.09 Million/uL -- Normal range between ( 3.93 and 5.22 ) Hct: 33.4 % -- Normal range between ( 34.1 and 44.9 ) Hgb: 11.2 Gram/dL -- Normal range between ( 11.2 and 15.7 ) Platelet Count: 181 K/uL -- Normal range between ( 163 and 369 ) MCH: 27.4 pg -- Normal range between ( 25.6 and 32.2 ) MCHC: 33.5 Gram/dL -- Normal range between ( 32.3 and 36.5 ) MCV: 81.7 fL -- Normal range between ( 79.0 and 94.8 ) Slide Review: No RDW: 14.8 % -- Normal range between ( 11.6 and 14.4 ) MPV: 11.7 fL -- Normal range between ( 9.4 and 12.4 ) 12/17/2021 2:16 PM Eos %: 0.1 % -- Normal range between ( 1.0 and 7.0 ) Ocean #: 1.06 K/uL -- Normal range between ( 0.24 and 0.82 ) Eos #: 0.01 K/uL -- Normal range between ( 0.04 and 0.54 ) Ocean %: 6.0 % -- Normal range between ( 4.7 and 12.5 ) Baso %: 0.2 % -- Normal range between ( 0.0 and 1.0 ) Baso #: 0.03 K/uL -- Normal range between ( 0.01 and 0.08 ) Neut %: 83.3 % -- Normal range between ( 34.0 and 71.0 ) Neut #: 14.62 K/uL -- Normal range between ( 1.56 and 6.13 ) Lymph %: 9.7 % -- Normal range between ( 19.3 and 53.0 ) Lymph #: 1.71 K/uL -- Normal range between ( 1.18 and 3.74 ) IG#: 0 x10(3)/uL IG%: 1 % -- Normal range between ( 0 and 1 ) Blood Bank 12/17/2021 4:25 PM ABO/Rh Repeat: O POS 12/17/2021 2:16 PM ABO/Rh: O POS Antibody Screen (Tube): Negative ABSC Toxicology 12/17/2021 3:45 PM UDS Amp: Negative UDS Lesly: Negative UDS Benzo: postive UDS Tana: Negative UDS Meth: Negative UDS Opi: Negative UDS Oxy: Negative UDS PCP: Negative UDS TCA: Negative UDS THC: positive Buprenorphine Screen, Urine: Negative Heroin Metab (6AM) by LC-MS/MS, Urine: Negative SpGravity, Urine: 1.022 Propoxyphene, Urine: na UDS pH: 7.1 UDS Creatinine, Toxicology: 152.1 mg/dL Diagnostic Radiology 12/17/2021 3:02 PM CR Abdomen 1 Vw Portable: CR Abdomen 1 Vw Portable Patient Name:KANDACE GONZALEZ I have received and understand this information and was given the opportunity to ask questions. Patient/Client Technologies Analyst Name: Patient/Client Technologies Analyst Signature: Relationship to Patient: Clinician/Hospital Client Technologies Analyst Signature: Date: Electronically signed by Alec, [facility] Conversion Geophysical Observer Cerner at 09/11/2022 12:14 PM CDT documented in this encounter Plan of Treatment Not on file documented as of this encounter Visit Diagnoses Not on filedocumented in this encounter Care Teams Industrial Chemistry Teacher Relationship Specialty Start Date End Date Jone Lopez CNM PCP - General Obstetrics 05/25/23 documented as of this encounter
--- OUTSIDE RECORDS SUMMARY | 2024-12-11 12:15 | XMS_ITS | Referral Summary ---
Author Organization [employer] ([place], [place], [place], [place]) Address [address] [place] [address] Care Team Providers Care Mailroom Messenger Name Role Phone SeverinoSuzan JABARI Primary Care Provider [phone] Allergies Active Allergy Reactions Criticality Noted Date [...] Do you speak a language other than [place] at [facility]? No 07/24/2023 Do you want [...] Mass Index 22.68 07/21/2023 1:52 AM EST Functional Status * Are you deaf or do you have serious difficulty hearing? Answer Date of Assessment Author No 07/08/2023 12:49 PM Dina Goss RN * Are you blind or do you have serious difficulty seeing, even when wearing glasses? Answer Date of Assessment Author No 07/08/2023 12:49 PM Dina Goss RN * Do you have serious difficulty walking or climbing stairs? Answer Date of Assessment Author No 07/08/2023 12:49 PM Dina Goss RN * Do you have serious difficulty dressing or bathing? Answer Date of Assessment Author No 07/08/2023 12:49 PM Dina Goss RN * Because of a physical, mental, or emotional condition, do you have serious difficulty doing errandsalone such as visiting the doctor? Answer Date of Assessment Author No 07/08/2023 12:49 PM Dina Goss RN Mental Status * Because of a physical, mental, or emotional condition, do you have serious difficulty concentrating, remembering, or making decisions? (5 years old or older) Answer Entry Date Author No 07/08/2023 12:49 PM Dina Goss RN Plan of Treatment Not on file Procedures Procedure Name Priority Date/Time Associated Diagnosis Comments HCV ANTIBODY CASCADE(PCR/ADRY) Routine 04/25/2023 HIV-1 ANTIGEN WITH HIV-1/2 ANTIBODY Routine 04/25/2023 CT, NG, TRICH VAG BY KD AP Routine 04/25/2023 from Last 3 Months or Most Recently Relevant to Health Maintenance Results * HCV Antibody [place](PCR/Adry) (04/25/2023) HCV Ab NR [facility] Provider MD LAB BLOOD ORDERABLES Shyann l Result * CT, NG, TRICH VAG BY KD (04/25/2023) Chlamydia by KD neg Gonococcus by KD neg [facility] Provider MD PATHOLOGY/CYTOLOGY ORDERA BLES Final Result * HIV-1 Antigen with HIV-1/2 Antibody (04/25/2023) HIV Screen 4th Generation wRfx NR Blood [facility] Provider LAB BLOOD ORDERABLES Shyann l Result from Last 3 Months or Most Recently Relevant to Health Maintenance Insurance [facility] [place] [address] Advance Directives For more information, please contact: [phone] * Full Code (Latest Code Status on File) Date Activated Date Inactivated Comments 07/25/2023 6:48 PM 07/27/2023 1:32 PM * Full Code Date Activated Date Inactivated Comments 07/21/2023 6:38 AM 07/25/2023 6:48 PM * Full Code Date Activated Date Inactivated Comments 06/26/2023 5:50 PM 06/29/2023 1:54 PM * Full Code Date Activated Date Inactivated Comments 06/23/2023 10:37 PM 06/26/2023 1:01 PM Care Teams Mailroom Messenger Relationship Specialty Start Date End Date Suzan Severino CNM PCP - General Obstetrics 05/25/23
--- OUTSIDE RECORDS SUMMARY | 2024-12-11 12:15 | XMS_ITS | Encounter Summary ---
Author Organization [employer] ([place], [place], [place], [place]) Address [address] [place] [address] Care Team Providers Care Accounting Manager Name Role Phone Suzan Severino CNM Primary Care Provider [phone] Encounter Details Date Type Department Care Team (Late st Contact Info) Description 12/20/2021 Transcribed Document [facility] Family Medicine [address] [place] [address] ProviderIsaías MD [address] [place] [address] Social History Tobacco Use Types [...] a language other than [place] at [facility]? No [...] Conversion Note - Historical Provider, - 12/20/2021 9:56 AM CDT Patient: KANDACE GONZALEZ Age: 21 Years Sex: Female : 2000 Admit Date 12/17/2021 13:43 Discharge Date 12-20-21 Primary Care Provider SHILO MASTERS MD-OBG Discharge Diagnosis delivery delivered 12/17/2021 O82 ICD-10-CM Procedures del and postpatum care Reason for Hospitalization childbirth emergency c/s Hospital Course benign Vital Signs Oxygen Settings (Last) Oxygen Therapy Mode: Room air (12/18/21 20:41:00)vss; afebrile Physical Exam gen: nad cardiac: reg rate resp:unlabored breast: nontender abd: fundus firm,nl lochia extrem; no edema inc: cdi Discharge Disposition stable Discharge Follow Up No Follow Up Appointments on Record Discharge Medications (1) Active Multivitamins , Oral, Daily Code Status Start: 12/17/21 20:14:00 EDT, Full Code, Continuous Order Consulting Physicians No Consulting Physician on Record. Current Diet Order Diet, Adult - Ordered -- Start: 12/18/21 7:16:00 EDT, Regular Diet, Isolation: Standard Precautions Pending Labs No Labs on Record Electronically signed by Alec [facility] Conversion Director Of Industrial Relations Cerner at 09/11/2022 12:15 PM CDT documented in this encounter Plan of Treatment Not on file documented as of this encounter Visit Diagnoses Not on filedocumented in this encounter Care Teams Accounting Manager Relationship Specialty Start Date End Date Severino, JABARI Mares PCP - General Obstetrics 05/25/23 documented as of this encounter
--- NOTE | 2024-12-11 12:21 | XR_ITS ---
FINAL REPORT CLINICAL HISTORY: Pain with movement COMPARISON: None FINDINGS: RIGHT WRIST Three views show no evidence of an acute, displaced fracture or dislocation of the visualized bony architecture. The joint spaces appear normal. IMPRESSION: Unremarkable exam. Reviewed, Interpreted and Dictated by Angeline Joya MD Transcribed by Mily Lee Authenticated and [facility]
[2024-12-11 12:28] LABS: Microscopic, Urine URINE MICROSCOPIC (MICROSCOPIC)
--- NOTE | 2024-12-11 12:33 | HMH.EDGENADL ---
Discharge Plan Disposition Patient Disposition: Home, Self-Care Condition: Good Prescriptions Prescriptions: New nitrofurantoin monohyd/m-cryst [Macrobid] 100 mg capsule 100 mg PO BID 7 Days Qty: 14 0RF Rx Instructions: must administer with a meal/food Referrals Follow up/Referrals: Provider,Referral, MD [Primary Care Provider, Medical] - See instructions Activity Restrictions/Add. Instructions Additional Instructions/Restrictions: Increase fluids and rest. Take medication as directed. Rest breast, ice and elevate. Clinical Impressions Clinical Impression: Sprain and strain of wrist, Urinary (tract) obstruction Instructions Patient Instructions: DI for Urinary Tract Infection (UTI), DI for Wrist Strain Print Language Print Language: Barb[place] Discharge ED Provider: Erich Juan General Adult HPI <Francoise Linares (ED), [employer] - Last Filed: 12/11/24 18:52> General Chief complaint: Extremity Injury, Upper Stated complaint: poss UTI and AO-12/09- Pain R wrist Time Seen by Provider: 12/11/24 12:10 Mode of Arrival: Ambulatory Source of Information: Patient Description of Symptoms (Recalled from ER Triage Doc. by RN): Pt reports urinary frequency, and burning with urination for approx 1 week. Pt also states she is having right wrist pain after hanging a water bucket. Pt rate pain 4/10 and worse with movement. History of Present Illness HPI narrative: 24-year-old female presents to the ED today for complaint of urinary urgency, frequency and burning over the past week. She has been taking AZO [id number]. She says this has not been working. She also has an additional complaint with pain to her right breast. She has pain with movement. She says 2 days ago she was hanging a water bucket and did something to her wrist. She has had pain with movement since. 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 No other symptoms or problems. Related Data Previous Rx's ?Medication ?Instructions ?Recorded nitrofurantoin 100 mg PO BID 7 days #14 caps 12/11/24 monohydrate/macrocrystals 100 mg capsule (Macrobid) Allergies Allergy/AdvReac Type Severity Reaction Status Date / Time Penicillins Allergy Mild Rash Verified 07/19/24 06:12 PFSH <Francoise Linares (ED), [employer] - Last Filed: 12/11/24 18:52> REPLACED BY [facility] Disclaimer: The information contained in this section may have been updated after the patient was seen, as this information can be updated by other users. Social History (Updated 07/19/24 @ 07:23 by Femi Duncan MD) Smoking Status: Current every day smoker alcohol intake: never current occupational status: other Travel in the last 8 weeks?: None Have you lived/traveled outside [place] in past 30 days?: No Contact w/someone who lives/traveled outside [place] past 30 days?: No Exposure to someone with infectious disease in past 14 days?: No Do you have a fever (greater than 100.4 F or 38 C)?: No Have you tested positive for COVID-19?: No Exposed to someone with COVID-19 in past 14 days?: No Do you have a sore throat?: No Do you have a cough?: No Do you have any weakness?: No Do you have any diarrhea?: No Are you experiencing any unusual bleeding?: No Do you have any muscle aches/pain?: Yes Do you have any abdominal pain?: No Are you experiencing loss of taste or smell?: No <Francoise Linares (ED), [employer] - Last Filed: 12/11/24 18:52> ROS Obtained: Yes Systems reviewed as appropriate & no additional complaints except as documented Constitutional Constitutional: Reports as per HPI Physical Exam <Francoise Linares (ED), [employer] - Last Filed: 12/11/24 18:52> General General appearance: alert and in no apparent distress Head Head exam: atraumatic and normocephalic Eye Eye exam: Present PERRL and EOMI ENT ENT exam: Present normal oropharynx and mucous membranes moist Neck Neck exam: Present full ROM and trachea midline Respiratory Respiratory exam: Present normal lung sounds bilaterally Cardiovascular Cardiovascular exam: Present regular rate, normal rhythm, normal heart sounds, +S1 and +S2 Extremities Exam Extremities exam: Present normal inspection, full ROM, tenderness (Right wrist with tenderness upon movement) and normal capillary refill Neurological Exam Neurological exam: Present alert and oriented X3 Skin Skin exam: Present warm, dry and intact Medical Decision Making <Francoise Linares (ED), [employer] DES[employer] - Last Filed: 12/11/24 18:52> Medical Records Screening: Per USPSTF and CDC recommendations, given the prevalence of disease in our region, it is our hospital?s policy to screen for HIV and viral Hepatitis for all patients aged 18 and over and those with ongoing risk factors. Stefan Inquiry Pt receiving controlled substance: No Stefan was queried for this patient: No Vital Signs: 12/11/24 12:13 12/11/24 13:52 Temperature 98.2 F 98.2 F Temperature Source Oral Oral Pulse Rate 80 Pulse Rate [Left] 82 Respiratory Rate 16 16 Blood Pressure 111/78 Blood Pressure [Right Arm] 108/73 L Blood Pressure Mean [Right Arm] 84 Blood Pressure Source Automatic Cuff Blood Pressure Source [Right Arm] Automatic Cuff Blood Pressure Position Sitting 02 Sat by Pulse Oximetry 98 Oxygen Delivery Method Room Air Room Air Lab Data Lab Results 12/11/24 12:25: Urine Color Yellow, Urine Appearance Clear, Urine pH 6.5, Ur Specific [place] 1.020, Urine Protein Trace, Urine Glucose (UA) Negative, Urine Ketones Negative, Urine Blood 2+ A, Urine Nitrate Negative, Urine Bilirubin Negative, Urine Urobilinogen 0.2, Ur Leukocyte Esterase Trace, Urine RBC 10-20, Urine WBC 5-10, Ur Squamous Epith Cells 3-5, Urine Bacteria Trace, Urine Mucus 1+ Orders (Tests/Meds): ORDERS Category Date Time Status Wrist XR right minimum 3 views [XR wrist RT min 3V] Exams 12/11/24 12:21 Completed Stat Urinalysis and Microscopic Stat Lab 12/11/24 12:25 Completed Medical Decision Narrative: patient is a 24-year-old female presenting to the emergency department for evaluation of dysuria and right wrist pain. Patient is hemodynamically stable and nontoxic-appearing upon arrival, afebrile. Differential diagnosis includes UTI, wrist sprain versus fracture. Workup will be conducted with hematologic labs, specific imaging. Patient will have a urinalysis and a right wrist x-ray. Imaging read by myself as negative. Formal imaging negative as well read by radiologist. UA is positive for blood and trace leuks. We will treat for UTI. Patient to follow-up with PCP. Patient safe for discharge home. <Erich Juan MD - Last Filed: 12/11/24 22:31> Vital Signs: 12/11/24 12:13 12/11/24 13:52 Temperature 98.2 F 98.2 F Temperature Source Oral Oral Pulse Rate 80 Pulse Rate [Left] 82 Respiratory Rate 16 16 Blood Pressure 111/78 Blood Pressure [Right Arm] 108/73 L Blood Pressure Mean [Right Arm] 84 Blood Pressure Source Automatic Cuff Blood Pressure Source [Right Arm] Automatic Cuff Blood Pressure Position Sitting 02 Sat by Pulse Oximetry 98 Oxygen Delivery Method Room Air Room Air Lab Data Lab Results 12/11/24 12:25: Urine Color Yellow, Urine Appearance Clear, Urine pH 6.5, Ur Specific [place] 1.020, Urine Protein Trace, Urine Glucose (UA) Negative, Urine Ketones Negative, Urine Blood 2+ A, Urine Nitrate Negative, Urine Bilirubin Negative, Urine Urobilinogen 0.2, Ur Leukocyte Esterase Trace, Urine RBC 10-20, Urine WBC 5-10, Ur Squamous Epith Cells 3-5, Urine Bacteria Trace, Urine Mucus 1+ Orders (Tests/Meds): ORDERS Category Date Time Status Wrist XR right minimum 3 views [XR wrist RT min 3V] Exams 12/11/24 12:21 Completed Stat Urinalysis and Microscopic Stat Lab 12/11/24 12:25 Completed Medical Decision Narrative: patient is a 24-year-old female presenting to the emergency department for evaluation of dysuria and right wrist pain. Patient is hemodynamically stable and nontoxic-appearing upon arrival, afebrile. Differential diagnosis includes UTI, wrist sprain versus fracture. Workup will be conducted with hematologic labs, specific imaging. Patient will have a urinalysis and a right wrist x-ray. Imaging read by myself as negative. Formal imaging negative as well read by radiologist. UA is positive for blood and trace leuks. We will treat for UTI. Patient to follow-up with PCP. Patient safe for discharge home. I was consulted by the [facility], and we discussed the complexity of the problems being addressed. I approve the treatment and management plan for this patient's care in the emergency department, thus performing a substantive portion of the medical decision making. Erich Juan MD Critical Care <Francoise Linares (ED), [employer]WE[employer] DES[employer]ER - Last Filed: 12/11/24 18:52> Critical Care Time Critical Care Time: No
[2024-12-11 12:37] LABS: Bilirubin,Urine Negative (Negative); Color,Urine YELLOW (Yellow); Glucose,Urine (UA) Negative (Negative); Ketones,Urine Negative (Negative); Leukocyte Esterase,Urine TRACE (Negative); PH,Urine 6.5 (5.0-8.5); Protein,Urine TRACE (Negative); Specific Gravity, Urine 1.020 (1.005-1.030); Urobilinogen,Urine 0.2 EU/dl (0.2)
--- NOTE | 2024-12-11 12:41 | HMH.ITSTN ---
pt denies preg, lmp 3 weeks ago, shielded for xray
[2024-12-11 12:44] LABS: Bacteria,Urine Trace /lpf; Mucus,Urine 1+ /lpf
[2024-12-11 13:52] VITALS: BP 111/78; PULSE 80; RESP 16; TEMP 36.8; O2SAT 99
== END 2024-12-11 13:53 | disposition home or self-care (01) ==
PROVIDERS: Nurse Practitioner; Emergency Provider Student in an Organized Health Care Education/Training Program
DX: N13.9 Obstructive and reflux uropathy, unspecified (principal); S63.501A Unspecified sprain of right wrist, initial encounter; F17.210 Nicotine dependence, cigarettes, uncomplicated
CPT/HCPCS: 73110; 81001; 99283